=== PATIENT | male | born 1975 | race Caucasian/White ===

== ENCOUNTER 2022-09-10 06:34 | Outpatient (OUT) | payer OTHER, SELFPAY ==
[2022-09-10 07:23] LABS: Alanine Aminotransferase 43 U/L (16-63); Albumin Globulin Ratio 0.9; Albumin Level 3.7 g/dL (3.4-5.0); Alkaline Phosphatase 109 U/L (46-116); Anion Gap 11.5; Aspartate Amino Transferase 22 U/L (15-37); Bilirubin Total 0.4 mg/dL (0.2-1.0); Calcium 8.7 mg/dL (8.5-10.1); Carbon Dioxide 30.3 mmol/L (21.0-32.0); Chloride 102 mmol/L (98-107); Chol HDL Ratio 3.3; Cholesterol 179 mg/dL (<=200); Estimated GFR (African America >60 (>=60); Estimated GFR (Non-African Ame >60 (>=60); Globulin 3.9 g/dL; Glucose 111 mg/dL (74-106); HDL Cholesterol 54 mg/dL (40-60); Potassium 3.8 mmol/L (3.5-5.1); Sodium 140 mmol/L (136-145); Total Protein 7.6 g/dL (6.4-8.2); Triglycerides 151 mg/dL (<=150); VLDL CHOLESTEROL 30.2 mg/dL
[2022-09-10 07:28] LABS: Basophils Percent Auto 0.5 % (0.2-2.0); Eosinophils Absolute Auto 0.2 10^3/uL (0.0-0.7); Eosinophils Percent Auto 2.3 % (0.9-7.0); Hematocrit 42.2 % (42.0-54.0); Hemoglobin 14.3 g/dL (14.0-18.0); Immature Granulocytes Abs Auto 0.02 10^3/uL (0.00-0.03); Immature Granulocytes Pct Auto 0.3 % (0.0-0.5); Lymphocytes Absolute Auto 2.2 10^3/uL (1.2-3.8); Lymphocytes Percent Auto 27.4 % (20.5-60.0); Mean Corpuscular HGB Conc 33.9 g/dL (29.9-35.2); Mean Corpuscular Hemoglobin 30.4 pg (25.9-34.0); Mean Corpuscular Volume 89.8 fL (80.0-94.0); Mean Platelet Volume 9.9 fL (9.5-13.5); Monocytes Absolute Auto 0.9 10^3/uL (0.3-0.8); Monocytes Percent Auto 11.3 % (1.7-12.0); Neutrophils Absolute Auto 4.6 10^3/uL (1.4-6.5); Neutrophils Percent Auto 58.2 % (43.0-75.0); Platelet Count 432 10^3/uL (150-450); Red Cell Distribution Width 12.9 % (11.0-15.0); White Blood Count 7.9 10^3/uL (4.0-11.0)
== END 2022-09-10 06:35 ==
LOC: LAB 06:34
PROVIDERS: PCP Internal Medicine; Visit Provider Internal Medicine
DX: Z00.00 Encounter for general adult medical examination without abnormal findings (principal)
CPT/HCPCS: 36415; 80053; 80061; 85025

== ENCOUNTER 2023-03-26 21:20 | Emergency (ER) | payer OTHER, SELFPAY ==
--- NOTE | 2023-03-26 21:36 | ED_ITS ---
HPI - General Adult General Stated complaint: HIGH BLOOD PRESSURE Time Seen by Provider: 03/26/23 21:27 Discharge Plan Discharge Referrals: Jaren Price DO [Primary Care Provider] - 1 week
--- NOTE | 2023-03-26 21:36 | ED.GENADUL1 ---
Documented by User: Divine Del Angel 03/26/23 21:55 HPI - General Adult General Chief complaint: Recheck/Abnormal Lab/Rx Stated complaint: HIGH BLOOD PRESSURE Time Seen by Provider: 03/26/23 21:27 History of Present Illness HPI narrative: 47 year old male presents to the ED for HTN. He states his thought he felt warm, flushed tonight which prompted her to take his blood pressure. His BP at home was 191/100. He denies known hx HTN. States he did feel flushed today. Denies fever, DON, dizziness, vision changes. Denies CP, cough, SOB, back pain. Denies abd pain, N/V/D. Denies sinus congestion/drainage, sore throat. Denies pain at this time. Related Data Home Medications Medication Instructions Recorded Confirmed pantoprazole 40 mg tablet,delayed 40 mg PO DAILY 03/26/23 03/26/23 release tadalafil 10 mg tablet 10 mg PO .every other day 03/26/23 03/26/23 tamsulosin 0.4 mg capsule 0.4 mg PO BID 03/26/23 03/26/23 Allergies Allergy/AdvReac Type Severity Reaction Status Date / Time No Known Drug Allergies Allergy Verified 03/26/23 21:43 Review of Systems ROS Constitutional Denies: fever or fatigue Ears, nose, mouth, and throat Denies: throat pain, neck pain, ear pain, vertigo, nasal discharge or nasal congestion Cardiovascular Denies: chest pain, palpitations, swelling of feet/ankles or lightheadedness Respiratory Denies: shortness of breath or cough Gastrointestinal Denies: abdominal pain, nausea, vomiting or diarrhea Musculoskeletal Denies: back pain or neck pain Integumentary/Breast Denies: rash or itching Neurological Denies: headache, numbness in extremities, weakness in extremities, lack of coordination, dizziness or slurred speech PFSH PFSH Social History Smoking status: Never smoker Exam Constitutional Vital Signs, click to edit/add: Last Vital Signs Pulse 68 03/26/23 21:56 Resp 16 03/26/23 21:43 BP 164/101 H 03/26/23 21:43 Pulse Ox 97 03/26/23 21:43 O2 Del Method Room Air 03/26/23 21:43 Common normals: no apparent distress and oriented x3 General appearance: cooperative; not ill appearing HENMT Nose: external nose normal External ear: external ears normal Mouth: oral and palatal mucosa normal, lip normal and tongue normal Eye Common normals: conjunctivae normal and no scleral icterus Neck & C-Spine Common normals: supple and no JVD Chest Chest: symmetrical chest wall rise Respiratory Common normals: normal respiratory effort Effort & inspection: able to speak in complete sentences and symmetric chest movement Auscultation: clear to auscultation bilaterally Cardio Common normals: regular rate and regular rhythm Neuro Common normals: oriented x3 Sensorium/orientation: awake and alert Speech: speech normal Gait (neuro): normal gait Course Vital Signs Vital signs: Vital Signs Pulse Rate 68 03/26/23 21:43 Respiratory Rate 16 03/26/23 21:43 Blood Pressure 164/101 H 03/26/23 21:43 Pulse Oximetry 97 03/26/23 21:43 Oxygen Delivery Method Room Air 03/26/23 21:43 Pulse Rate 68 03/26/23 21:56 Respiratory Rate 16 03/26/23 21:43 Blood Pressure 164/101 H 03/26/23 21:43 Pulse Oximetry 97 03/26/23 21:43 Oxygen Delivery Method Room Air 03/26/23 21:43 Medical Decision Making MDM Narrative Medical decision making narrative: Laboratory and imaging studies were pending. Care was resumed to Dr. Hutchinson. See his dictation for further evaluation and treatment. Medical Records Medical records reviewed: Yes I reviewed the patient's medical records Lab Data Labs: Lab Results 03/26/23 Range/Units 21:56 WBC 7.7 (4.0-11.0) 10^3/uL RBC 4.39 L (4.70-6.10) 10^6/uL Hgb 13.0 L (14.0-18.0) g/dL Hct 40.4 L (42.0-54.0) % MCV 92.0 (80.0-94.0) fL MCH 29.6 (25.9-34.0) pg MCHC 32.2 (29.9-35.2) g/dL RDW 12.6 (11.0-15.0) % Plt Count 353 (150-450) 10^3/uL MPV 10.0 (9.5-13.5) fL Neut % (Auto) 48.8 (43.0-75.0) % Lymph % (Auto) 36.4 (20.5-60.0) % Armstrong % (Auto) 11.1 (1.7-12.0) % Eos % (Auto) 2.8 (0.9-7.0) % Baso % (Auto) 0.6 (0.2-2.0) % Neut # (Auto) 3.8 (1.4-6.5) 10^3/uL Lymph # (Auto) 2.8 (1.2-3.8) 10^3/uL Armstrong # (Auto) 0.9 H (0.3-0.8) 10^3/uL Eos # (Auto) 0.2 (0.0-0.7) 10^3/uL Baso # (Auto) 0.1 (0.0-0.1) 10^3/uL Abs Immat Gran (auto) 0.02 (0.00-0.03) 10^3/uL Imm/Tot Granulo (auto) 0.3 (0.0-0.5) % Sodium 140 (136-145) mmol/L Potassium 3.3 L (3.5-5.1) mmol/L Chloride 105 (98-107) mmol/L Carbon Dioxide 29.7 (21.0-32.0) mmol/L Anion Gap 8.6 BUN 26.0 H (7.0-18.0) mg/dL Creatinine 0.95 (0.70-1.30) mg/dL Est GFR ( Amer) >60 (>=60) Est GFR (Non-Af Amer) >60 (>=60) BUN/Creatinine Ratio 27.4 Glucose 121 H (74-106) mg/dL Calcium 8.9 (8.5-10.1) mg/dL Total Bilirubin 0.2 (0.2-1.0) mg/dL AST <5 L (15-37) U/L ALT 11 L (16-63) U/L Alkaline Phosphatase 116 (46-116) U/L Troponin I High Sens 6.0 (4.0-76.1) pg/mL Total Protein 6.9 (6.4-8.2) g/dL Albumin 3.4 (3.4-5.0) g/dL Globulin 3.5 g/dL Albumin/Globulin Ratio 1.0 ECG Data Attestation: ?I have reviewed the pertinent ECG results. (EKG was reviewed by the attending physician. It showed sinus rhythm at a rate of [address] segment changes. AL interval 162 ms. QTc 409 ms. ) Discharge Plan Discharge Chief Complaint: Recheck/Abnormal Lab/Rx Clinical Impression: Elevated blood pressure reading, Elevated BUN, Acute hypokalemia Patient Disposition: Home, Self-Care Time of Disposition Decision: 22:44 Prescriptions / Home Meds: No Action tadalafil 10 mg tablet 10 mg PO .every other day pantoprazole 40 mg tablet,delayed release (DR/EC) 40 mg PO DAILY tamsulosin 0.4 mg capsule 0.4 mg PO BID Instructions: Hypokalemia (ED), How to Take a Blood Pressure Reading (ED) Stand Alone Forms: Portal Instructions Referrals: Jaren Price DO [Primary Care Provider] - 1 week Documented by User: Trevin Hutchinson 03/26/23 22:45 HPI - General Adult General Chief complaint: Recheck/Abnormal Lab/Rx Stated complaint: HIGH BLOOD PRESSURE Time Seen by Provider: 03/26/23 21:27 History of Present Illness HPI narrative: 47 year old male presents to the ED for HTN. He states his thought he felt warm, flushed tonight which prompted her to take his blood pressure. His BP at home was 191/100. He denies known hx HTN. States he did feel flushed today. Denies fever, DON, dizziness, vision changes. Denies CP, cough, SOB, back pain. Denies abd pain, N/V/D. Denies sinus congestion/drainage, sore throat. Denies pain at this time. On questioning he told me that his urologist started him on tadalafil qOD for BPH. He started that about a month ago. Related Data Home Medications Medication Instructions Recorded Confirmed pantoprazole 40 mg tablet,delayed 40 mg PO DAILY 03/26/23 03/26/23 release tadalafil 10 mg tablet 10 mg PO .every other day 03/26/23 03/26/23 tamsulosin 0.4 mg capsule 0.4 mg PO BID 03/26/23 03/26/23 Allergies Allergy/AdvReac Type Severity Reaction Status Date / Time No Known Drug Allergies Allergy Verified 03/26/23 21:43 PFSH PFS Social History Smoking status: Never smoker Exam Constitutional Vital Signs, click to edit/add: Last Vital Signs Pulse 68 03/26/23 21:56 Resp 16 03/26/23 21:43 BP 164/101 H 03/26/23 21:43 Pulse Ox 97 03/26/23 21:43 O2 Del Method Room Air 03/26/23 21:43 Course Vital Signs Vital signs: Vital Signs Pulse Rate 68 03/26/23 21:43 Respiratory Rate 16 03/26/23 21:43 Blood Pressure 164/101 H 03/26/23 21:43 Pulse Oximetry 97 03/26/23 21:43 Oxygen Delivery Method Room Air 03/26/23 21:43 Pulse Rate 68 03/26/23 21:56 Respiratory Rate 16 03/26/23 21:43 Blood Pressure 164/101 H 03/26/23 21:43 Pulse Oximetry 97 03/26/23 21:43 Oxygen Delivery Method Room Air 03/26/23 21:43 Medical Decision Making MDM Narrative Medical decision making narrative: Laboratory and imaging studies were pending. Care was transferred to Dr. Hutchinson. See his dictation for further evaluation and treatment. Attending physician note - I saw and examined the patient. His labs revealed normal WBC, Hb 13, CMP notable for K 3.3, BUN elevated at 26 with normal Cr. LFTs normal. CXR normal. Results discussed with the patient. His BP had decreased to 130/83 without treatment while in the ED. He felt better as his BP improved and is now feeling back to normal. No dizziness or return of symptoms going from supine to sitting up. Patient was given a dose of K before discharge. he was instructed to see Dr Price for follow up. Since his BP normalized without treatment, I will not prescribe any anti-hypertensives at this time. Uncertain if the qOD tadalafil he recently started is playing any role in tonight's HTN episode. ED return if he worsens. Lab Data Lab results reviewed: Yes I reviewed the patient's lab results Labs: Lab Results 03/26/23 Range/Units 21:56 WBC 7.7 (4.0-11.0) 10^3/uL RBC 4.39 L (4.70-6.10) 10^6/uL Hgb 13.0 L (14.0-18.0) g/dL Hct 40.4 L (42.0-54.0) % MCV 92.0 (80.0-94.0) fL MCH 29.6 (25.9-34.0) pg MCHC 32.2 (29.9-35.2) g/dL RDW 12.6 (11.0-15.0) % Plt Count 353 (150-450) 10^3/uL MPV 10.0 (9.5-13.5) fL Neut % (Auto) 48.8 (43.0-75.0) % Lymph % (Auto) 36.4 (20.5-60.0) % Armstrong % (Auto) 11.1 (1.7-12.0) % Eos % (Auto) 2.8 (0.9-7.0) % Baso % (Auto) 0.6 (0.2-2.0) % Neut # (Auto) 3.8 (1.4-6.5) 10^3/uL Lymph # (Auto) 2.8 (1.2-3.8) 10^3/uL Armstrong # (Auto) 0.9 H (0.3-0.8) 10^3/uL Eos # (Auto) 0.2 (0.0-0.7) 10^3/uL Baso # (Auto) 0.1 (0.0-0.1) 10^3/uL Abs Immat Gran (auto) 0.02 (0.00-0.03) 10^3/uL Imm/Tot Granulo (auto) 0.3 (0.0-0.5) % Sodium 140 (136-145) mmol/L Potassium 3.3 L (3.5-5.1) mmol/L Chloride 105 (98-107) mmol/L Carbon Dioxide 29.7 (21.0-32.0) mmol/L Anion Gap 8.6 BUN 26.0 H (7.0-18.0) mg/dL Creatinine 0.95 (0.70-1.30) mg/dL Est GFR ( Amer) >60 (>=60) Est GFR (Non-Af Amer) >60 (>=60) BUN/Creatinine Ratio 27.4 Glucose 121 H (74-106) mg/dL Calcium 8.9 (8.5-10.1) mg/dL Total Bilirubin 0.2 (0.2-1.0) mg/dL AST <5 L (15-37) U/L ALT 11 L (16-63) U/L Alkaline Phosphatase 116 (46-116) U/L Troponin I High Sens 6.0 (4.0-76.1) pg/mL Total Protein 6.9 (6.4-8.2) g/dL Albumin 3.4 (3.4-5.0) g/dL Globulin 3.5 g/dL Albumin/Globulin Ratio 1.0 Imaging Data Chest x-ray: Radiologist's impression: Patient Name: VERONA MELISSA MRN: [facility]:[id number] date: 1975 Sex: M Assigned Patient Location: ED.MAIN Current Patient Location: ER Accession/Order Number: [id number] Exam Date: 03/26/2023 21:47 Report Date: 03/26/2023 22:08 At the request of: DIVINE DEL ANGEL Procedure: XR chest 1V EXAM: XR chest 1V HISTORY: HTN COMPARISON: Chest x-ray 01/31/2018, outside study TECHNIQUE: Single AP radiograph of the chest FINDINGS: No pneumothorax, pleural effusion or consolidation. Normal heart size. No acute osseous abnormality. IMPRESSION: No acute cardiopulmonary process. Electronically authenticated by: BASIL ORTIZ Date: 03/26/2023 22:08 ECG Data Interpretation: EKG interpretation: Emergency Department physician interpretation. Normal sinus rhythm at 67bpm. Normal axis, normal intervals and no ST segment elevation or depression. Normal EKG. Discharge Plan Discharge Chief Complaint: Recheck/Abnormal Lab/Rx Clinical Impression: Elevated blood pressure reading, Elevated BUN, Acute hypokalemia Patient Disposition: Home, Self-Care Time of Disposition Decision: 22:44 Prescriptions / Home Meds: No Action tadalafil 10 mg tablet 10 mg PO .every other day pantoprazole 40 mg tablet,delayed release (DR/EC) 40 mg PO DAILY tamsulosin 0.4 mg capsule 0.4 mg PO BID Instructions: Hypokalemia (ED), How to Take a Blood Pressure Reading (ED) Stand Alone Forms: Portal Instructions Referrals: Jaren Price DO [Primary Care Provider] - 1 week
--- NOTE | 2023-03-26 21:42 | XR_ITS ---
The [address] [address] Patient Name: VERONA MELISSA MRN: [id number] date: 1975 Sex: M Assigned Patient Location: ED.MAIN Current Patient Location: ER Accession/Order Number: [id number] Exam Date: 03/26/2023 21:47 Report Date: 03/26/2023 22:08 At the request of: DIVINE DEL ANGEL Procedure: XR chest 1V EXAM: XR chest 1V HISTORY: HTN COMPARISON: Chest x-ray 01/31/2018, outside study TECHNIQUE: Single AP radiograph of the chest FINDINGS: No pneumothorax, pleural effusion or consolidation. Normal heart size. No acute osseous abnormality. XR/XR chest 1V IMPRESSION: No acute cardiopulmonary process. Electronically authenticated by: BASIL ORTIZ Date: 03/26/2023 22:08
--- NOTE | 2023-03-26 21:42 | ECG_ITS ---
[facility] Test Date: 2023-03-26 Pat Name: VERONA MELISSA Department: Room: - Gender: Male [employer] Facility [employer] Clerk: : 1975 Requested By: Jaren Borges Order Number: [id number] Reading MD: JAREN BORGES Measurements Intervals [place] Rate: 67 P: 61 MN: 162 QRS: 51 QRSD: 100 T: 62 QT: 394 QTc: 409 Interpretive Statements 1100 Sinus rhythm 9110 normal ECG No previous ECG available for comparison Electronically Signed On 03-27-2023 7:11:33 EST by JAREN BORGES
[2023-03-26 21:43] VITALS: BP 164/101; PULSE 68; RESP 16; O2SAT 97; BMI 31.9
[2023-03-26 21:56] VITALS: PULSE 68
[2023-03-26 22:06] LABS: Basophils Absolute Auto 0.1 10^3/uL (0.0-0.1); Basophils Percent Auto 0.6 % (0.2-2.0); Eosinophils Absolute Auto 0.2 10^3/uL (0.0-0.7); Eosinophils Percent Auto 2.8 % (0.9-7.0); Hematocrit 40.4 % (42.0-54.0); Immature Granulocytes Abs Auto 0.02 10^3/uL (0.00-0.03); Immature Granulocytes Pct Auto 0.3 % (0.0-0.5); Lymphocytes Absolute Auto 2.8 10^3/uL (1.2-3.8); Lymphocytes Percent Auto 36.4 % (20.5-60.0); Mean Corpuscular HGB Conc 32.2 g/dL (29.9-35.2); Mean Corpuscular Hemoglobin 29.6 pg (25.9-34.0); Monocytes Absolute Auto 0.9 10^3/uL (0.3-0.8); Monocytes Percent Auto 11.1 % (1.7-12.0); Neutrophils Absolute Auto 3.8 10^3/uL (1.4-6.5); Neutrophils Percent Auto 48.8 % (43.0-75.0); Platelet Count 353 10^3/uL (150-450); Red Blood Count 4.39 10^6/uL (4.70-6.10); Red Cell Distribution Width 12.6 % (11.0-15.0); White Blood Count 7.7 10^3/uL (4.0-11.0)
[2023-03-26 22:20] LABS: Alanine Aminotransferase 11 U/L (16-63); Albumin Level 3.4 g/dL (3.4-5.0); Alkaline Phosphatase 116 U/L (46-116); Anion Gap 8.6; Aspartate Amino Transferase <5 U/L (15-37); BUN Creatinine Ratio 27.4; Bilirubin Total 0.2 mg/dL (0.2-1.0); Calcium 8.9 mg/dL (8.5-10.1); Carbon Dioxide 29.7 mmol/L (21.0-32.0); Chloride 105 mmol/L (98-107); Estimated GFR (African America >60 (>=60); Estimated GFR (Non-African Ame >60 (>=60); Globulin 3.5 g/dL; Glucose 121 mg/dL (74-106); Potassium 3.3 mmol/L (3.5-5.1); Sodium 140 mmol/L (136-145); Total Protein 6.9 g/dL (6.4-8.2)
[2023-03-26] MEDS: POTASSIUM CHLORIDE 10 MEQ ER TABLET 40 MEQ PO (22:49)
[2023-03-26 22:59] VITALS: BP 133/84; PULSE 65; RESP 16; TEMP 36.6; O2SAT 96
--- NOTE | 2023-04-22 09:19 | ED.GENADUL1 ---
HPI - General Adult General Chief complaint: Recheck/Abnormal Lab/Rx Stated complaint: HIGH BLOOD PRESSURE Time Seen by Provider: 03/26/23 21:27 Source: patient and family Mode of arrival: walk-in Limitations: no limitations History of Present Illness HPI narrative: Patient described feeling flushed all day and checked his BP - got reading of 190/100 - he does not take anything for HTN at home. No chest pain, shortness of breath or palpitations. No recent illness or injury. No dizziness, headache, change in vision. Related Data Home Medications Medication Instructions Recorded Confirmed pantoprazole 40 mg tablet,delayed 40 mg PO DAILY 03/26/23 03/26/23 release tadalafil 10 mg tablet 10 mg PO .every other day 03/26/23 03/26/23 tamsulosin 0.4 mg capsule 0.4 mg PO BID 03/26/23 03/26/23 Allergies Allergy/AdvReac Type Severity Reaction Status Date / Time No Known Drug Allergies Allergy Verified 03/26/23 21:43 PFSH PFSH Social History Smoking status: Never smoker Exam Narrative Exam Narrative: Nurses notes and vital signs reviewed and patient is not hypoxic. afebrile General: Well-appearing and in no apparent distress. Skin: Warm, dry, no pallor noted. Head: Normocephalic, atraumatic. Neck: Supple, non-tender. Eye: Pupils are equal, round and EOMI. No scleral icterus. Cardiovascular: Regular Rate and Rhythm without murmur, gallop or rub. Respiratory: No accessory muscle use or respiratory distress. Lungs are clear to auscultation, no wheezing, rales or rhonchi Musculoskeletal: normal ROM, no calf or popliteal tenderness, no lower extremity edema/swelling GI: Abdomen is soft, non-distended. Normal bowel sounds. No tenderness to palpation. No rebound, guarding, or rigidity noted. Neurological: A&O x4. No cranial nerve dysfunction observed. No truncal ataxia. Moves all extremities. Sensation intact. Psychiatric: Cooperative and interactive. Normal mood and affect. Constitutional Vital Signs, click to edit/add: Last Vital Signs Temp 97.9 F 03/26/23 22:59 Pulse 65 03/26/23 22:59 Resp 16 03/26/23 22:59 BP 133/84 03/26/23 22:59 Pulse Ox 96 03/26/23 22:59 O2 Del Method Room Air 03/26/23 22:59 Course Vital Signs Vital signs: Vital Signs Pulse Rate 68 03/26/23 21:43 Respiratory Rate 16 03/26/23 21:43 Blood Pressure 164/101 H 03/26/23 21:43 Pulse Oximetry 97 03/26/23 21:43 Oxygen Delivery Method Room Air 03/26/23 21:43 Temperature 97.9 F 03/26/23 22:59 Pulse Rate 65 03/26/23 22:59 Respiratory Rate 16 03/26/23 22:59 Blood Pressure 133/84 03/26/23 22:59 Pulse Oximetry 96 03/26/23 22:59 Oxygen Delivery Method Room Air 03/26/23 22:59 Medical Decision Making MDM Narrative Medical decision making narrative: Patient was placed on phototypesetting equipment monitor and EKG obtained. Blood drawn and sent for evaluation. Chest x-ray obtained. Patient had unremarkable CBC, normal EKG and negative chest x-ray. CMP was notable for mildly decreased potassium at 3.3. BUN is also elevated at 2 6. Other electrolytes, glucose and LFTs were negative. Negative troponin. Patient received oral potassium supplementation in the emergency department before discharge. Blood pressure normalized without any ED intervention. It is not clear why exactly he would have such elevated blood pressure readings at home. He does not currently take medications for high blood pressure and has not been diagnosed with hypertension. It was recommended that he follow-up with his primary care physician. Emergency department return if he worsens. Lab Data Lab results reviewed: Yes I reviewed the patient's lab results Labs: Lab Results 03/26/23 Range/Units 21:56 WBC 7.7 (4.0-11.0) 10^3/uL RBC 4.39 L (4.70-6.10) 10^6/uL Hgb 13.0 L (14.0-18.0) g/dL Hct 40.4 L (42.0-54.0) % MCV 92.0 (80.0-94.0) fL MCH 29.6 (25.9-34.0) pg MCHC 32.2 (29.9-35.2) g/dL RDW 12.6 (11.0-15.0) % Plt Count 353 (150-450) 10^3/uL MPV 10.0 (9.5-13.5) fL Neut % (Auto) 48.8 (43.0-75.0) % Lymph % (Auto) 36.4 (20.5-60.0) % Wilson % (Auto) 11.1 (1.7-12.0) % Eos % (Auto) 2.8 (0.9-7.0) % Baso % (Auto) 0.6 (0.2-2.0) % Neut # (Auto) 3.8 (1.4-6.5) 10^3/uL Lymph # (Auto) 2.8 (1.2-3.8) 10^3/uL Wilson # (Auto) 0.9 H (0.3-0.8) 10^3/uL Eos # (Auto) 0.2 (0.0-0.7) 10^3/uL Baso # (Auto) 0.1 (0.0-0.1) 10^3/uL Abs Immat Gran (auto) 0.02 (0.00-0.03) 10^3/uL Imm/Tot Granulo (auto) 0.3 (0.0-0.5) % Sodium 140 (136-145) mmol/L Potassium 3.3 L (3.5-5.1) mmol/L Chloride 105 (98-107) mmol/L Carbon Dioxide 29.7 (21.0-32.0) mmol/L Anion Gap 8.6 BUN 26.0 H (7.0-18.0) mg/dL Creatinine 0.95 (0.70-1.30) mg/dL Est GFR ( Amer) >60 (>=60) Est GFR (Non-Af Amer) >60 (>=60) BUN/Creatinine Ratio 27.4 Glucose 121 H (74-106) mg/dL Calcium 8.9 (8.5-10.1) mg/dL Total Bilirubin 0.2 (0.2-1.0) mg/dL AST <5 L (15-37) U/L ALT 11 L (16-63) U/L Alkaline Phosphatase 116 (46-116) U/L Troponin I High Sens 6.0 (4.0-76.1) pg/mL Total Protein 6.9 (6.4-8.2) g/dL Albumin 3.4 (3.4-5.0) g/dL Globulin 3.5 g/dL Albumin/Globulin Ratio 1.0 Discharge Plan Discharge Chief Complaint: Recheck/Abnormal Lab/Rx Clinical Impression: Elevated blood pressure reading, Elevated BUN, Acute hypokalemia Patient Disposition: Home, Self-Care Time of Disposition Decision: 22:44 Condition: Good Prescriptions / Home Meds: No Action tadalafil 10 mg tablet 10 mg PO .every other day pantoprazole 40 mg tablet,delayed release (DR/EC) 40 mg PO DAILY tamsulosin 0.4 mg capsule 0.4 mg PO BID Instructions: Hypokalemia (ED), How to Take a Blood Pressure Reading (ED) Stand Alone Forms: Portal Instructions Referrals: Jaren Price DO [Primary Care Provider] - 1 week Discharge Date/Time: 03/26/23 23:01
== END 2023-03-26 23:01 | disposition home or self-care (01) ==
PROVIDERS: Nurse Practitioner Family; Emergency Provider Emergency Medicine; PCP Internal Medicine
DX: E87.6 Hypokalemia (principal); R03.0 Elevated blood-pressure reading, without diagnosis of hypertension; R79.89 Other specified abnormal findings of blood chemistry
CPT/HCPCS: 36415; 71045; 80053; 84484; 85025; 93005; 99285

== ENCOUNTER 2023-10-02 09:38 | Outpatient (OUT) | payer OTHER, SELFPAY ==
--- OUTSIDE RECORDS SUMMARY | 2023-10-02 09:45 | XMS_ITS | CCD ---
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 (erectile dysfunction) Esophageal reflux Hypertension Hypogonadism male Low energy Nocturia Prostate cancer screening Prostatitis Right groin pain Varicocele Ventral incisional hernia Historical No qualifying data Procedure/Surgical History Repair of ventral hernia (01/21/2021), Appendectomy. Medications Cialis 10 mg Tab, 10 mg= 1 tab(s), Oral, Daily, 11 refills escitalopram 10 mg Tab finasteride 5 mg Tab, 5 mg= 1 tab(s), Oral, Daily, 3 refills Flomax 0.4 mg Cap, 0.4 mg= 1 cap(s), Oral, BID, 3 refills Pantoprazole [address] Tab, 40 mg= 1 tab(s), Oral, Daily Allergies No Known Allergies Social History Alcohol - Denies Alcohol Use, 01/02/2021 Substance Abuse - Denies Substance Abuse, 01/02/2021 Tobacco - Denies Tobacco Use, 01/11/2021 Never (less than 100 in lifetime) Tobacco Use:. Never Smokeless Tobacco Use:. Household tobacco concerns: No., 07/06/2023 Family History Diabetes mellitus type 1: Father. Immunizations Vaccine Date Status Comments influenza virus vaccine, inactivated - Not Given Patient Refuses SARS-CoV-2 (COVID-19) mRNA BNT-162b2 vax 07/21/2020 Recorded SARS-CoV-2 (COVID-19) mRNA BNT-162b2 vax 06/30/2020 Recorded Lab Results Ambulatory Point of Care Results Bilirubin Urine Dipstick: Negative (07/06/23 15:49:00) Blood Urine Dipstick: Trace-intact (07/06/23 15:49:00) Glucose Urine Dipstick: Negative (0 (more content not included)... Normal [facility] Comment on above: Result Comment: Elec tronically Signed By: Carlos SORTO MD\.br\Date and Time Signed: 07/06/23 16:43 EDT\.br\Electronically Co-Signed By: Irena Cisneros\.br\Date and Time Co-Signed: 07/06/23 16:41 EDT No Panel Informationon 05-14 Destruction method: cryotherapy [facility] Quick Strepon 05-09-2023 S. pyogenes Org specific cx Ql (Throat) Negative [facility] [employer] Other Quick Strep [employer] Other Alanine aminotransferase [En zymatic activity/volume] in Serum or PlasmaOrdered By: Carlos Padilla on 03-27-2023 ALT [Catalytic activity/Vol] 14 U/L 7-52 [facility] Albumin [Mass/volume] in Ser um or Plasma by Bromocresol green (BCG) dye binding methoOrdered By: Carlos Padilla on 03-27-2023 Albumin BCG dye [Mass/Vol] 4.4 g/dL 3.5-5.7 [facility] Alkaline phosphatase [Enzyma tic activity/volume] in Serum or PlasmaOrdered By: Carols Padilla on 03-27-2023 ALP [Catalytic activity/Vol] 98 U/L 34-104 [facility] Aspartate aminotransferase [ Enzymatic activity/volume] in Serum or PlasmaOrdered By: Carlos Padilla on 03-27-2023 AST [Catalytic activity/Vol] 17 U/L 13-39 [facility] Basophils Auto (Bld) [#/Vol] Ordered By: Carlos Padilla on 03-27-2023 Basophils (Bld) [#/Vol] 0.1 10*3/uL 0.0-0.2 [facility] Basophils/100 WBC Auto (Bld) Ordered By: Carlos Padilla on 03-27-2023 Basophils/100 WBC (Bld) 0.7 % . [facility] Bilirubin.total [Mass/volume ] in Serum or PlasmaOrdered By: Carlos Padilla on 03-27-2023 Bilirubin [Mass/Vol] 0.3 mg/dL 0.3-1.0 [facility] COVID CepheidOrdered By: Paola Padilla on 03-27-2023 SARS-CoV-2 (COVID-19) Ab IA Ql Negative Negative [facility] Comment on above: This is a duplicate Cepheid Xpert Xpress CoV-2/Flu/RSV Plus RNA by RT-PCR result to be used for statistical tracking purpose only. SARS-CoV-2 (COVID-19) RNA MEHRAN+probe Ql (Unsp spec) [facility] COVID-19 / Flu A/B / RSV PCR on 03-27-2023 SARS-CoV-2 (COVID-19) RNA MEHRAN+probe Ql (Unsp spec) COVID-19 Cepheid Result Negative for SARS-CoV-2 RNA by RT-PCR Flu A Cepheid Result Negative for Flu A RNA by RT-PCR Flu B Cepheid Result Negative for Flu B RNA by RT-PCR RSV Cepheid Result Negative for RSV RNA by RT-PCR COVID19 Blank Space Reference: Negative COVID19 Blank Space Cepheid Disclaimer The Cepheid Xpert Xpress CoV-2/Flu/RSV Plus has Cepheid Disclaimer not been FDA cleared or approved; this test has Cepheid Disclaimer been authorized by FDA under an EUA for use by Cepheid Disclaimer authorized laboratories; this test has been Cepheid Disclaimer authorized only for the simultaneous qualitative Cepheid Disclaimer detection and differentiation of nucleic acids from Cepheid Disclaimer SARS-CoV-2, influenza A, influenza B, and Cepheid Disclaimer respiratory syncytial virus (RSV), and not for any Cepheid Disclaimer other viruses or pathogens; and this test is only Cepheid Disclaimer authorized for the duration of the declaration that Cepheid Disclaimer circumstances exist justifying the authorization of Cepheid Disclaimer emergency use of in vitro diagnostic tests for Cepheid Disclaimer detection and/or diagnosis of COVID-19 under Cepheid Disclaimer Section 564(b)(1) of the Act, 21 U.S.C. 360bbb- Cepheid Disclaimer 3(b)(1), unless the authorization is terminated or Cepheid Disclaimer revoked sooner. PERFORMED BY: [place] [address] PATHOLOGIST [employer] TRIMMER NATY FORTE M.D. [facility] Comment on above: Performed By: #### C OVID19 FLU RSV, CEPHEID NEG #### [facility] [address] Calcium [Mass/volume] in Ser um or PlasmaOrdered By: Carlos Padilla on 03-27-2023 Calcium [Mass/Vol] 9.3 mg/dL 8.6-10.3 [facility] Carbon dioxide, total [Moles /volume] in Serum or PlasmaOrdered By: Carlos Padilla on 03-27-2023 CO2 [Moles/Vol] 28.7 mmol/L 21.0-31.0 [facility] Cepheid COVID PCR Negativeon 03-27-2023 SARS-CoV-2 (COVID-19) RNA MEHRAN+probe Ql (Unsp spec) Negative Normal Negative [facility] Comment on above: Result Comment: This is a duplicate Cepheid Xpert Xpress CoV-2/Flu/RSV Plus RNA by RT-PCR result to be used for statistical tracking purpose only. PERFORMED BY: [place] [address] PATHOLOGIST [employer] TRIMMER NATY FORTE M.D. Performed By: #### C OVID19 FLU RSV, CEPHEID NEG #### [place] [address] [place] Chloride [Moles/volume] in S manav or PlasmaOrdered By: Carlos Padilla on 03-27-2023 Chloride [Moles/Vol] 105 mmol/L 98-107 [facility] Complete Blood Count Auto Di ffon 03-27-2023 Basophils (Bld) [#/Vol] 0.1 10*3/uL Normal 0.0-0.2 [facility] Comment on above: Result Comment: PERF ORMED BY: [place] [address] PATHOLOGIST [employer] TRIMMER NATY FORTE M.D. Performed By: #### C MP, CBC #### [facility] [address] [place] [address] [place] Basophils/100 WBC (Bld) 0.7 % Normal . [facility] Comment on above: Performed By: #### C MP, CBC #### [facility] [address] [place] [address] [place] Eosinophils (Bld) [#/Vol] 0.2 10*3/uL Normal 0.0-0.45 [facility] Comment on above: Performed By: #### C MP, CBC #### [place] [address] [place] Eosinophils/100 WBC (Bld) 2.0 % Normal . [facility] Comment on above: Performed By: #### C MP, CBC #### [facility] [address] Erythrocyte distribution width (RBC) [Ratio] 13.2 % Normal 12.0-14.8 [facility] Comment on above: Performed By: #### C MP, CBC #### [facility] [address] Hematocrit (Bld) [Volume fraction] 41.9 % Normal 38.8-50.0 [facility] Comment on above: Performed By: #### C MP, CBC #### [facility] [address] Hemoglobin (Bld) [Mass/Vol] 14.2 g/dL Normal 13.0-17.0 [facility] Comment on above: Performed By: #### C MP, CBC #### [address] Lymphocytes (Bld) [#/Vol] 2.6 10*3/uL Normal 1.00-4.8 [facility] Comment on above: Performed By: #### C MP, CBC #### [address] Lymphocytes/100 WBC (Bld) 34.2 % Normal . [facility] Comment on above: Performed By: #### C MP, CBC #### [facility] [address] MCH (RBC) [Entitic mass] 30.5 pg Normal 27.5-35.2 [facility] Comment on above: Performed By: #### C MP, CBC #### [facility] [address] MCV (RBC) [Entitic vol] 89.8 fL Normal 83.5-101 [facility] Comment on above: Performed By: #### C MP, CBC #### [facility] [address] Mean Corpuscular HGB Conc 34.0 g/dL Normal 32.5-35.6 [facility] Comment on above: Performed By: #### C MP, CBC #### [facility] [address] [place] [address] [place] Monocytes (Bld) [#/Vol] 0.6 10*3/uL Normal 0.0-0.8 [facility] Comment on above: Performed By: #### C MP, CBC #### [facility] [address] [place] [address] [place] Monocytes/100 WBC (Bld) 17.61 % Normal 0.00-20.00 [facility] Comment on above: Performed By: #### C MP, CBC #### [facility] [address] [place] [address] [place] Monocytes/100 WBC (Bld) 8.4 % Normal . [facility] Comment on above: Performed By: #### C MP, CBC #### [facility] [address] Neutrophils (Bld) [#/Vol] 4.1 10*3/uL Normal 1.8-7.7 [facility] Comment on above: Performed By: #### C MP, CBC #### [facility] [address] Neutrophils/100 WBC (Bld) 54.7 % Normal . [facility] Comment on above: Performed By: #### C MP, CBC #### [place] [address] [place] NRBC% 0.1 /100{WBC} Normal 0-0.5 [facility] Comment on above: Performed By: #### C MP, CBC #### [facility] [address] [place] [address] [place] Platelet mean volume (Bld) [Entitic vol] 8.3 fL Normal 6.6-10.1 [facility] Comment on above: Performed By: #### C MP, CBC #### [facility] [address] [place] [address] [place] Platelets (Bld) [#/Vol] 367 10*3/uL Normal 150-450 [facility] Comment on above: Performed By: #### C MP, CBC #### [facility] [address] RBC (Bld) [#/Vol] 4.67 10*6/uL Normal 3.90-5.60 [facility] Comment on above: Performed By: #### C MP, CBC #### [facility] [address] WBC (Bld) [#/Vol] 7.6 10*3/uL Normal 4.1-10.5 [facility] Comment on above: Performed By: #### C MP, CBC #### [facility] [address] Comprehensive Metabolic Pane lavon 03-27-2023 Albumin [Mass/Vol] 4.4 g/dL Normal 3.5-5.7 [facility] Comment on above: Performed By: #### C MP, CBC #### [address] Albumin/Globulin [Mass ratio] 1.5 {ratio} Normal [facility] Comment on above: Performed By: #### C MP, CBC #### [facility] [address] [place] [address] ALP [Catalytic activity/Vol] 98 U/L Normal 34-104 [facility] Comment on above: Performed By: #### C MP, CBC #### [address] ALT [Catalytic activity/Vol] 14 U/L Normal 7-52 [facility] Comment on above: Performed By: #### C MP, CBC #### [address] Anion gap [Moles/Vol] 10.1 mmol/L Normal 6.0-15.0 [facility] Comment on above: Performed By: #### C MP, CBC #### [facility] [address] AST [Catalytic activity/Vol] 17 U/L Normal 13-39 [facility] Comment on above: Performed By: #### C MP, CBC #### [facility] [address] [place] [address] Bilirubin [Mass/Vol] 0.3 mg/dL Normal 0.3-1.0 [facility] Comment on above: Performed By: #### C MP, CBC #### [facility] [address] Calcium [Mass/Vol] 9.3 mg/dL Normal 8.6-10.3 [facility] Comment on above: Performed By: #### C MP, CBC #### [address] Chloride [Moles/Vol] 105 mmol/L Normal 98-107 [facility] Comment on above: Performed By: #### C MP, CBC #### [address] CO2 [Moles/Vol] 28.7 mmol/L Normal 21.0-31.0 [facility] Comment on above: Performed By: #### C MP, CBC #### [address] Creatinine [Mass/Vol] 0.94 mg/dL Normal 0.70-1.30 [facility] Comment on above: Performed By: #### C MP, CBC #### [address] Creatinine Clr Calc Pharmacy 123.73 [facility] Comment on above: Result Comment: PERF ORMED BY: [place] [address] PATHOLOGIST [employer]IM[employer] NATY FORTE M.D. Performed By: #### C MP, CBC #### [place] [address] [place] GFR/1.73 sq M.predicted MDRD (S/P/Bld) [Vol rate/Area] mL/min/{1.73_m2} [facility] Comment on above: Performed By: #### C MP, CBC #### [place] [address] [place] Globulin (S) [Mass/Vol] 2.9 g/dL Normal [facility] Comment on above: Performed By: #### C MP, CBC #### [facility] [address] [place] [address] [place] Glucose [Mass/Vol] 94 mg/dL Normal 70-100 [facility] Comment on above: Result Comment: [place] Glucose Reference Range is dependent on time and content of last meal. Glucose of more than 200 mg/dL in a nonstressed, ambulatory subject supports the diagnosis of Diabetes Mellitus. ADA recommended reference range Performed By: #### C MP, CBC #### [facility] [address] Potassium [Moles/Vol] 3.8 mmol/L Normal 3.5-5.1 [facility] Comment on above: Performed By: #### C MP, CBC #### [facility] [address] [place] [id number] [place] Protein [Mass/Vol] 7.3 g/dL Normal 6.4-8.9 [facility] Comment on above: Performed By: #### C MP, CBC #### [facility] [address] [place] [address] [place] Sodium [Moles/Vol] 140 mmol/L Normal 136-145 [facility] Comment on above: Performed By: #### C MP, CBC #### [facility] [address] [place] [id number] [place] Urea nitrogen [Mass/Vol] 16 mg/dL Normal 7-25 [facility] Comment on above: Performed By: #### C MP, CBC #### [facility] [address] [place] [address] [place] Creatinine [Mass/volume] in Serum or PlasmaOrdered By: Carlos Padilla on 03-27-2023 Creatinine [Mass/Vol] 0.94 mg/dL 0.70-1.30 [facility] ECG 12 lead ECGon 03-27-2023 ECG 12 lead ECG [facility] [address] [place] [address] Electrocardiograph Report Signed Patient: Josh Gil MR#: [id number] : 1975 Acct:[id number] Age/Sex: 47 / M ADM Date: 03/27/23 Loc: ER Room: Type: [facility] ER Attending Dr: Ordering Provider: Carlos Padilla DO Date of Service: 03/27/23 ECG/ECG 12 lead ECG: Recheck/Abnormal Lab/Rx Copies to: Test Reason : Blood Pressure : / mmHG Vent. Rate : 069 BPM Atrial Rate : 069 BPM P-R Int : 162 ms QRS Dur : 102 ms QT Int : 398 ms P-R-T Axes : 054 019 038 degrees QTc Int : 426 ms Normal sinus rhythm Inferior infarct , age undetermined Abnormal ECG No previous ECGs available Confirmed by CARLOS PADILLA DO ([id number]) on 03/27/2023 11:37:02 PM Referred By: Electronically Signed By:CARLOS PADILLA DO Transcribed By: MUS Signed By Carlos Padilla DO [id number] Normal [facility] Eosinophils Auto (Bld) [#/Vo l]Ordered By: Carlos Padilla on 03-27-2023 Eosinophils (Bld) [#/Vol] 0.2 10*3/uL 0.0-0.45 [facility] Eosinophils/100 WBC Auto (Bl d)Ordered By: Carlos Padilla on 03-27-2023 Eosinophils/100 WBC (Bld) 2.0 % . [facility] Erythrocyte distribution wid th Auto (RBC) [Ratio]Ordered By: Carlos Padilla on 03-27-2023 Erythrocyte distribution width (RBC) [Ratio] 13.2 % 12.0-14.8 [facility] Globulin Calc (S) [Mass/Vol] Ordered By: Carlos Padilla on 03-27-2023 Globulin (S) [Mass/Vol] 2.9 g/dL [facility] Glucose [Mass/volume] in Ser um or PlasmaOrdered By: Carlos Padilla on 03-27-2023 Glucose [Mass/Vol] 94 mg/dL 70-100 [facility] Comment on above: ADA recommended refe rence rangeRandom Glucose Reference Range is dependent on time and content of last meal. Glucose of more than 200 mg/dL in a nonstressed, ambulatory subject supports the diagnosis of Diabetes Mellitus. Hematocrit Auto (Bld) [Volum e fraction]Ordered By: Carlos Padilla on 03-27-2023 Hematocrit (Bld) [Volume fraction] 41.9 % 38.8-50.0 [facility] Hemoglobin [Mass/volume] in BloodOrdered By: Carlos Padilla on 03-27-2023 Hemoglobin (Bld) [Mass/Vol] 14.2 g/dL 13.0-17.0 [facility] Leukocytes [#/volume] correc belinda for nucleated erythrocytes in Blood by Automated counOrdered By: Carlos Padilla on 03-27-2023 WBC corrected for nucl RBC Auto (Bld) [#/Vol] 7.6 10*3/uL 4.1-10.5 [facility] Lymphocytes Auto (Bld) [#/Vo l]Ordered By: Carlos Padilla on 03-27-2023 Lymphocytes (Bld) [#/Vol] 2.6 10*3/uL 1.00-4.8 [facility] Lymphocytes/100 WBC Auto (Bl d)Ordered By: Carlos Padilla on 03-27-2023 Lymphocytes/100 WBC (Bld) 34.2 % . [facility] MCH Auto (RBC) [Entitic mass ]Ordered By: Carlos Padilla on 03-27-2023 MCH (RBC) [Entitic mass] 30.5 pg 27.5-35.2 [facility] MCHC Auto (RBC) [Mass/Vol]Or dered By: Carlos Padilla on 03-27-2023 MCHC (RBC) [Mass/Vol] 34.0 g/dL 32.5-35.6 [facility] MCV Auto (RBC) [Entitic vol] Ordered By: Carlos Padilla on 03-27-2023 MCV (RBC) [Entitic vol] 89.8 fL 83.5-101 [facility] Monocyte distribution width [Entitic volume] in Blood by AutomatedOrdered By: Carlos Padilla on 03-27-2023 Monocyte distribution width Auto (Bld) [Entitic vol] 17.61 % 0.00-20.00 [facility] Monocytes Auto (Bld) [#/Vol] Ordered By: Carlos Padilla on 03-27-2023 Monocytes (Bld) [#/Vol] 0.6 10*3/uL 0.0-0.8 [facility] Monocytes/100 WBC Auto (Bld) Ordered By: Carlos Padilla on 03-27-2023 Monocytes/100 WBC (Bld) 8.4 % . [facility] Neutrophils Auto (Bld) [#/Vo l]Ordered By: Carlos Padilla on 03-27-2023 Neutrophils (Bld) [#/Vol] 4.1 10*3/uL 1.8-7.7 [facility] Neutrophils/100 WBC Auto (Bl d)Ordered By: Carlos Padilla on 03-27-2023 Neutrophils/100 WBC (Bld) 54.7 % . [facility] No Panel InformationOrdered By: Carlos Padilla on 03-27-2023 Estimated GFR (CKD-EPI) > 60.0 mL/Min [facility] Creatinine Clearance (Chem 123.73 [facility] Nucleated erythrocytes [Pres ence] in Blood by Automated countOrdered By: Carlos Padilla on 03-27-2023 Nucleated RBC Auto Ql (Bld) 0.1 /100{WBC} 0-0.5 [facility] Platelet mean volume Auto (B ld) [Entitic vol]Ordered By: Carlos Padilla on 03-27-2023 Platelet mean volume (Bld) [Entitic vol] 8.3 fL 6.6-10.1 [facility] Platelets Auto (Bld) [#/Vol] Ordered By: Carlos Padilla on 03-27-2023 Platelets (Bld) [#/Vol] 367 10*3/uL 150-450 [facility] Potassium [Moles/volume] in Serum or PlasmaOrdered By: Carlos Padilla on 03-27-2023 Potassium [Moles/Vol] 3.8 mmol/L 3.5-5.1 [facility] Protein [Mass/volume] in Ser um or PlasmaOrdered By: Carlos Padilla on 03-27-2023 Protein [Mass/Vol] 7.3 g/dL 6.4-8.9 [facility] RBC Auto (Bld) [#/Vol]Ordere d By: Carlos Padilla on 03-27-2023 RBC (Bld) [#/Vol] 4.67 10*6/uL 3.90-5.60 [facility] Serum or plasma albumin/glob ulin mass ratioOrdered By: Carlos Padilla on 03-27-2023 Albumin/Globulin [Mass ratio] 1.5 {ratio} [facility] Serum or plasma anion gap de terminationOrdered By: Carlos Padilla on 03-27-2023 Anion gap [Moles/Vol] 10.1 mmol/L 6.0-15.0 [facility] Sodium [Moles/volume] in Ser um or PlasmaOrdered By: Carlos Padilla on 03-27-2023 Sodium [Moles/Vol] 140 mmol/L 136-145 [facility] Urea nitrogen [Mass/volume] in Serum or PlasmaOrdered By: Carlos Padilla on 03-27-2023 Urea nitrogen [Mass/Vol] 16 mg/dL 7-25 [facility] WBC Auto (Bld) [#/Vol]Ordere d By: Carlos Padilla on 03-27-2023 WBC (Bld) [#/Vol] 7.6 10*3/uL 4.1-10.5 [facility] Ambulatory Visit Summaryon 1 Ambulatory Visit Summary SHIN, JOSH Boby :1975 Visit Date:01/19/2023 Ambulatory Visit Instructions Your Diagnosis BPH with urinary obstruction Nocturia Low energy Prostate cancer screening ED (erectile dysfunction) Tests Performed Urnls Dip Stick Auto w/o Microscopy POC 19332 Your Care Team Attending Physician - LILIA CARDOZA, Carlos Villanueva Primary Care Physician - JAREN PRICE DO This Is Your Medications List finasteride (finasteride 5 mg Tab) tadalafil (Cialis 10 mg Tab) tamsulosin (Flomax 0.4 mg Cap) Contact prescribing physician if questions or concerns pantoprazole (Pantoprazole [address] Tab) Procedures Performed Repair of ventral hernia (01/21/2021), Appendectomy. Discharge Vitals Heart Rate (Peripheral) 80 Respiratory Rate 16 Blood Pressure 138/69 Height 183 cm Height 72 in Weight 107 kg Weight 235.4 lb BMI 31.95 What to do next Scheduled Follow-Up Appointments Thursday 8:45 AM EDT With: Carlos SORTO MD Where: [facility] Sydnee Normal [facility] Patient Educationon 01-20-20 Patient Education Urology Benign Prostatic Hyperplasia Benign prostatic hyperplasia (BPH) is an enlarged prostate gland that is caused by the normal aging process. The prostate may get bigger as a man gets older. The condition is not caused by cancer. The prostate is a walnut-sized gland that is involved in the production of semen. It is located in front of the rectum and below the bladder. The bladder stores urine. The urethra carries stored urine out of the body. An enlarged prostate can press on the urethra. This can make it harder to pass urine. The buildup of urine in the bladder can cause infection. Back pressure and infection may progress to bladder damage and kidney (renal) failure. What are the causes? This condition is part of the normal aging process. However, not all men develop problems from this condition. If the prostate enlarges away from the urethra, urine flow will not be blocked. If it enlarges toward the urethra and compresses it, there will be problems passing urine. What increases the risk? This condition is more likely to develop in men older than 50 years. What are the signs or symptoms? Symptoms of this condition include: ? Getting up often during the night to urinate. ? Needing to urinate frequently during the day. ? Difficulty starting urine flow. ? Decrease in size and strength of your urine stream. ? Leaking (dribbling) after urinating. ? Inability to pass urine. This needs immediate treatment. ? Inability to completely empty your bladder. ? Pain when you pass urine. This is more common if there is also an infection. ? Urinary tract infection (UTI). How is this diagnosed? This condition is diagnosed based on your medical history, a physical exam, and your symptoms. Tests will also be done, such as: ? A post-void bladder scan. This measures any amount of urine that may remain in your bladder after you finish urinating. ? A digital rectal exam. In a rectal exam, your health care provider checks your prostate by putting a lubricated, gloved finger into your rectum to feel the back of your prostate gland. This exam detects the size of your gland and any abnormal lumps or growths. ? An exam of your urine (urinalysis). ? A prostate specific antigen (PSA) screening. This is a blood test used to screen for prostate cancer. ? An ultrasound. This test uses sound waves to electronically produce a picture of your prostate gland. Your health care provider may refer you to a specialist in kidney and prostate diseases (urologist). How is this treated? Once symptoms begin, your health care provider will monitor your condition (active surveillance or watchful waiting). Treatment for this condition will depend on the severity of your condition. Treatment may include: ? Observation and yearly exams. This may be the only treatment needed if your condition and symptoms are mild. ? Medicines to relieve your symptoms, including: ? Medicines to shrink the prostate. ? Medicines to relax the muscle of the prostate. ? Surgery in severe cases. Surgery may include: ? Prostatectomy. In this procedure, the prostate tissue is removed completely through an open incision or with a laparoscope or robotics. ? Transurethral resection of the prostate (TURP). In this procedure, a tool is inserted through the opening at the tip of the penis (urethra). It is used to cut away tissue of the inner core of the prostate. The pieces are removed through the same opening of the penis. This removes the blockage. ? Transurethral incision (TUIP). In this procedure, small cuts are made in the prostate. This lessens the prostate's pressure on the urethra. ? Transurethral microwave thermotherapy (TUMT). This procedure uses microwaves to create heat. The heat destroys and removes a small amount of prostate tissue. ? Transurethral needle ablation (TUNA). This procedure uses radio frequencies to destroy and remove a small amount of prostate tissue. ? Interstitial laser coagulation (ILC). This procedure uses a laser to destroy and remove a small amount of prostate tissue. ? Transurethral electrovaporization (TUVP). This procedure uses electrodes to destroy and remove a small amount of prostate tissue. ? Prostatic urethral lift. This procedure inserts an implant to push the lobes of the prostate away from the urethra. Follow these instructions at home: ? Take [id number] and prescription medicines only as told by your health care provider. ? Monitor your symptoms for any changes. Contact your health care provider with any changes. ? Avoid drinking large amounts of liquid before going to bed or out in public. ? Avoid or reduce how much caffeine or alcohol you drink. ? Give yourself time when you urinate. ? Keep all follow-up visits. This is important. Contact a health care provider if: ? You have unexplained back pain. ? Your symptoms do not get better with treatment. ? You develop side effects from the medicine (more content not included)... Normal [facility] Urology Office/Clinic Noteon 01-19-2023 Urology Office/Clinic Note Chief Complaint 1yr HPI Staff 47 yo male here for 1 yr f/u with PSA. Previous Dx: BPH with obstruction, nocturia, low energy. Taking Tamsulosin 0.4mg bid and Finasteride 5mg qd. PSA 02/21/22- 0.26 Scrotal US 02/04/22 (ordered due to workers comp-ongoing hernia complications) Pt did call our office back in July c/o burning and pain while sitting. Was given Cipro therapy from PCP. Denies burning since then. Still getting up 2-3x/night. Energy has improved. Denies any concerns at this time. History of Present Illness Tests reviewed: reviewed UA and PSA. I have reviewed the previous health record information and history for this patient from . I have reviewed and verified the staff HPI to be accurate for this encounter. There have been no associated fever, chills, flank pain, or blood in the urine. Denies any urinary infections since last encounter. Review of Systems PHQ Score Initial Depression Screen Score: 0 ROS - Provider Constitutional: denies weight loss, denies hot flashes. Eyes: denies eye problems. Gastrointestinal: denies nausea, denies vomiting. Cardiovascular: denies chest pain or angina. Integumentary: no dryness Musculoskeletal: denies musculoskeletal symptoms. ENMT: denies otolaryngeal symptoms. Respiratory: no shortness of breath. Heme/Lymph: denies easy bleeding tendency, denies easy bruising tendency. Psychiatric: no confusion, no anxiety. Genitourinary: See HPI. Physical Exam Vitals & Measurements HR: 80(Peripheral) RR: 16 BP: 138/69 HT: 72 in HT: 183 cm WT: 107 kg WT: 235.4 lb BMI: 31.95 General Appearance: alert, no distress, well nourished, well developed male. Assessment/Plan 1. BPH with urinary obstruction (N40.1: Benign prostatic hyperplasia with lower urinary tract symptoms) Pt. continues taking Flomax 0.4mg bid and Finasteride 5mg qd. Scrotal US 02/04/22 (ordered due to workers comp-ongoing hernia complications) CT Pelvis w/o Con 04/26/22 - small fat-contained Rt inguinal hernia Pt did call our office back in July c/o burning, troubles urinating, and pain while sitting. Was given Cipro therapy from PCP. Denies burning since then. Pt states that he has been doing okay, not as good as he was last year. Pt states that his sxs are hesitation, feels like he is sitting on a ping-pong ball at times, and has a weak stream, only at different times, not consistently. Advised pt that this is caused by his prostate and the Finasteride may not be helping anymore. Discussed getting a cysto and a bladder function test done to determine if he will need a procedure done. Pt states that he would like to wait longer before having these tests or procedures done. Advised pt to continue to monitor his sxs and if they get persistently worse over time, he is to call our office and we will go from there. Discussed starting a med for urinary discomfort, if this becomes bothersome. Discussed starting Cialis 10mg QOD to help with BPH sxs. Pt states that he would like to start this. Follow up in 6 mos. All questions/concerns were discussed. Pt to call the office if he encounters any issues prior. Pt acknowledges understanding. -Will start Cialis 10mg QOD, Script will say QD. Discussed the medication side effects, and the patient will monitor closely for these, as well as for symptom improvement. If severe side effects occur, the medication should be stopped and the office notified. -Continue Tamsulosin and Finasteride as above. Pt is to call for refills. 2. Nocturia (R35.1: Nocturia) Ongoing 2-3x 3. Low energy (R53.83: Other fatigue) Current level drawn on 10/09/2019 - 419 ([phone]). Pt states that his energy has improved. 4. Prostate cancer screening (Z12.5: Encounter for screening for malignant neoplasm of prostate) PSA 02/21/22 - 0.26 Follow-up With When Contact Information Carlos SORTO MD, URL In 6 months [facility] [address], [place] [address]- Additional Instructions: Patient Education Benign Prostatic Hyperplasia I, Emily Walker , personally scribed for Dr. Sorto on 01/19/2023 16:43:22. . Documentation recorded by the scribe, Emily Walker, accurately reflects the services(s) I performed and decisions made by me. Problem List/Past Medical History Ongoing Bilateral groin pain BMI 32.0-32.9,adult BPH with urinary obstruction ED (erectile dysfunction) Esophageal reflux Hypertension Hypogonadism male Low energy Nocturia Prostate cancer screening Prostatitis Right groin pain Varicocele Ventral incisional hernia Historical No qualifying data Procedure/Surgical History Repair of ventral hernia (01/21/2021), Appendectomy. Medications finasteride 5 mg Tab, 5 mg= 1 tab(s), Oral, Daily, 3 refills Flomax 0.4 mg Cap, 0.4 mg= 1 cap(s), Oral, BID, 3 refills Pantoprazole [address] Tab, 40 mg= 1 tab(s), Oral, Daily Allergies No Known All (more content not included)... Normal [facility] Comment on above: Result Comment: Elec tronically Signed By: Carlos SORTO MD\.br\Date and Time Signed: 01/19/23 16:44 EDT\.br\Electronically Co-Signed By: Emily Walker\.br\Date and Time Co-Signed: 01/19/23 16:43 EDT Consultation Noteon 07-23-19 Consultation Note [id number]:[id number] Normal [facility] US SCROTUMon 02-04-2022 US SCROTUM EXAMINATION: US SCROTUM HISTORY: Strain of muscle of right groin region COMPARISON: No relevant comparison available. TECHNIQUE: High-resolution sonographic imaging of the scrotum and contents was performed. FINDINGS: The right testicle is normal in size, contour and homogeneous echotexture measuring 4.6 x 3.4 x 2.4 cm. Normal color and Doppler. The right epididymis is normal. Small right hydrocele. Small right varicocele. Small inguinal hernia containing fat. The left testicle is normal in size, contour and homogeneous echotexture measuring 4.1 x 3.8 x 2.3 cm. Normal color and Doppler. Area of calcification measuring 9 mm with acoustic shadowing likely extratesticular calcification The left epididymis is normal Small left hydrocele. No varicocele. IMPRESSION: Suspected small right inguinal hernia containing fat Small bilateral hydroceles Small right varicocele Electronically authenticated by: RALPH KHAN Date: 2022-02-04 13:36 Normal [facility] CBC AUTO DIFFon 06-27-2021 BASO # 0.0 103/ul Normal 0.0-0.1 [facility] Comment on above: Performed By: #### C BC #### [facility] [address] [place] [address] Dr. Maritza Lopez Basophils/100 WBC (Bld) 0.6 % Normal 0.2-2.0 [facility] Comment on above: Performed By: #### C BC #### [facility] [address] [place] [address] Dr. Maritza Lopez EO # 0.2 103/ul Normal 0.0-0.7 [facility] Comment on above: Performed By: #### C BC #### [facility] [address] [place] [address] Dr. Maritza Lopez Eosinophils/100 WBC (Bld) 2.9 % Normal 0.9-7.0 [facility] Comment on above: Performed By: #### C BC #### [facility] [address] [place] [address] Dr. Maritza Lopez Erythrocyte distribution width (RBC) [Ratio] 13.2 % Normal 11.0-15.0 [facility] Comment on above: Performed By: #### C BC #### [facility] [address] [place] [address] Dr. Maritza Lopez Hematocrit (Bld) [Volume fraction] 43.1 % Normal 42.0-54.0 [facility] Comment on above: Performed By: #### C BC #### [facility] [address] [place] [address] Dr. Maritza Lopez Hemoglobin (Bld) [Mass/Vol] 14.2 g/dL Normal 14.0-18.0 [facility] Comment on above: Performed By: #### C BC #### [facility] [address] [place] [address] Dr. Maritza Lopez IG # 0.01 10e3/ul Normal 0.00-0.03 [facility] Comment on above: Performed By: #### C BC #### [facility] [address] [place] [address] Dr. Maritza Lopez IG % 0.2 % Normal 0.0-0.5 [facility] Comment on above: Performed By: #### C BC #### [facility] [address] [place] [address] Dr. Maritza Lopez LYMPH # 2.0 103/ul Normal 1.2-3.8 [facility] Comment on above: Performed By: #### C BC #### [facility] [address] [place] [address] Dr. Maritza Lopez Lymphocytes/100 WBC (Bld) 30.3 % Normal 20.5-60.0 [facility] Comment on above: Performed By: #### C BC #### [facility] [address] [place] [address] Dr. Maritza Lopez MANUAL DIFF REQ NO Normal [facility] [place] [facility] Comment on above: Performed By: #### C BC #### [facility] [address] [place] [address] Dr. Maritza Lopez MCH (RBC) [Entitic mass] 30.0 pg Normal 25.9-34.0 [facility] Comment on above: Performed By: #### C BC #### [facility] [address] [place] [address] Dr. Maritza Lopez MCHC (RBC) [Mass/Vol] 32.9 g/dL Normal 29.9-35.2 [facility] Comment on above: Performed By: #### C BC #### [facility] [id number] Maritza Lopez MCV (RBC) [Entitic vol] 91.1 fL Normal 80.0-94.0 [facility] Comment on above: Performed By: #### C BC #### [facility] [address] [address] [address] Maritza Lopez MONO # 0.8 103/ul Normal 0.3-0.8 [facility] Comment on above: Performed By: #### C BC #### [facility] [address] [place] [address] Dr. Maritza Lopez Monocytes/100 WBC (Bld) 11.6 % Normal 1.7-12.0 [facility] Comment on above: Performed By: #### C BC #### [facility] [address] [place] [address] Dr. Maritza Lopez NEUT # 3.6 103/ul Normal 1.4-6.5 [facility] Comment on above: Performed By: #### C BC #### [facility] [address] [place] [address] Dr. Maritza Lopez Neutrophils/100 WBC (Bld) 54.4 % Normal 43.0-75.0 [facility] Comment on above: Performed By: #### C BC #### [facility] [address] [place] [address] Dr. Maritza Lopez Platelet mean volume (Bld) [Entitic vol] 10.2 fL Normal 9.5-13.5 [facility] Comment on above: Performed By: #### C BC #### [facility] [address] [place] [address] Dr. Maritza Lopez PLT 378 103/ul Normal 150-450 [facility] Comment on above: Performed By: #### C BC #### [facility] [address] [place] [address] Dr. Maritza Lopez RBC 4.73 106/ul Normal 4.70-6.10 [facility] Comment on above: Performed By: #### C BC #### [facility] [address] [place] [address] Dr. Maritza Lopez WBC 6.6 103/ul Normal 4.0-11.0 [facility] Comment on above: Performed By: #### C BC #### [facility] [address] [address] [address] Maritza Lopez LIPID PROFILEon 06-27-2021 CHOL-HDL RATIO NORM SEE BELOW Normal [facility] Comment on above: Result Comment: 3.3 - 4.4 LOW RISK 4.4 - 7.1 AVERAGE RISK 7.1 - 11.0 MODERATE RISK >11.0 HIGH RISK Performed By: #### L IPID, CMP #### [facility] [address] [address] [address] Maritza Lopez Cholesterol [Mass/Vol] 164 mg/dL Normal <=200 [facility] Comment on above: Performed By: #### L IPID, CMP #### [facility] [address] [address] [address] Maritza Lopez Cholesterol in HDL [Mass/Vol] 55 mg/dL Normal 40-60 [facility] Comment on above: Performed By: #### L IPID, CMP #### [facility] [address] [address] [address] Maritza Lopez Cholesterol in LDL [Mass/Vol] 90.8 mg/dL Normal [facility] Comment on above: Performed By: #### L IPID, CMP #### [facility] [address] [address] [address] Maritza Lopez Cholesterol.total/Chantale sterol in HDL [Mass ratio] 3.0 {ratio} Normal [facility] Comment on above: Performed By: #### L IPID, CMP #### [facility] [address] [address] [address] Maritza Lopez HDL NORMAL > or = 60 mg/dl - LO W CARDIOVASCULAR RISK <40 mg/dl - HIGH CARDIOVASCULAR RISK Normal [facility] Comment on above: Performed By: #### L IPID, CMP #### [facility] [address] [address] [address] Maritza Lopez LDL CALC NORMAL SEE BELOW Normal [facility] Comment on above: Result Comment: <100 mg/dl OPTIMAL 100 - 129 mg/dl NEAR OR ABOVE OPTIMAL 130 - 159 mg/dl BORDERLINE HIGH 160 - 189 mg/dl HIGH >190 mg/dl VERY HIGH Performed By: #### L IPID, CMP #### [facility] [address] [place] [address] Dr. Maritza Lopez Triglyceride [Mass/Vol] 91 mg/dL Normal <=150 [facility] Comment on above: Performed By: #### L IPID, CMP #### [facility] [address] [place] [address] Dr. Maritza Lopez VLDL CALC 18.2 mg/dL Normal [facility] Comment on above: Performed By: #### L IPID, CMP #### [facility] [address] [place] [address] Dr. Maritza Lopez PROF 14(COMP METB)on 022 Albumin [Mass/Vol] 3.8 g/dL Normal 3.4-5.0 [facility] Comment on above: Performed By: #### L IPID, CMP #### [facility] [address] [place] [address] Dr. Maritza Lopez Albumin/Globulin [Mass ratio] 1.2 {ratio} Normal [facility] Comment on above: Performed By: #### L IPID, CMP #### [facility] [address] [place] [address] Dr. Maritza Lopez ALP [Catalytic activity/Vol] 100 U/L Normal 46-116 [facility] Comment on above: Performed By: #### L IPID, CMP #### [facility] [address] [place] [address] Dr. Maritza Lopez ALT [Catalytic activity/Vol] 26 U/L Normal 16-63 [facility] Comment on above: Performed By: #### L IPID, CMP #### [facility] [address] [place] [address] Dr. Maritza Lopez Anion gap [Moles/Vol] 11.5 mmol/L Normal [facility] Comment on above: Performed By: #### L IPID, CMP #### [facility] [address] [address] [address] Maritza Lopez AST [Catalytic activity/Vol] 14 U/L Critically low 15-37 [facility] Comment on above: Performed By: #### L IPID, CMP #### [facility] [address] [address] [address] Maritza Lopez Bilirubin [Mass/Vol] 0.4 mg/dL Normal 0.2-1.3 [facility] Comment on above: Performed By: #### L IPID, CMP #### [facility] [address] [address] [address] Maritza Lopez Calcium [Mass/Vol] 8.4 mg/dL Critically low 8.5-10.1 [facility] Comment on above: Performed By: #### L IPID, CMP #### [facility] [address] [place] [address] Dr. Maritza Lopez Chloride [Moles/Vol] 104 mmol/L Normal 98-107 [facility] Comment on above: Performed By: #### L IPID, CMP #### [facility] [address] [address] [address] Maritza Lopez CO2 [Moles/Vol] 30.6 mmol/L Critically high 22.0-30.0 [facility] Comment on above: Performed By: #### L IPID, CMP #### [facility] [address] [place] [address] Dr. Maritza Lopez Creatinine [Mass/Vol] 1.07 mg/dL Normal 0.66-1.25 [facility] Comment on above: Performed By: #### L IPID, CMP #### [facility] [address] [place] [address] Dr. Maritza Lopez EGFR-AF NICARAGUAN >60 Normal >=60 [facility] Comment on above: Performed By: #### L IPID, CMP #### [facility] [address] [place] [address] Dr. Maritza Lopez EGFR-NON AF NICARAGUAN >60 Normal >=60 [facility] Comment on above: Performed By: #### L IPID, CMP #### [facility] [address] [address] [address] Maritza Lopez Globulin (S) [Mass/Vol] 3.3 g/dL Normal [facility] Comment on above: Performed By: #### L IPID, CMP #### [facility] [address] [address] [address] Maritza Lopez Glucose [Mass/Vol] 110 mg/dL Critically high 74-106 [facility] Comment on above: Performed By: #### L IPID, CMP #### [facility] [address] [place] [address] Dr. Maritza Lopez Potassium [Moles/Vol] 4.1 mmol/L Normal 3.4-5.0 [facility] Comment on above: Performed By: #### L IPID, CMP #### [facility] [address] [place] [address] Dr. Maritza Lopez Protein [Mass/Vol] 7.1 g/dL Normal 6.1-8.2 [facility] Comment on above: Performed By: #### L IPID, CMP #### [facility] [address] [place] [address] Dr. Maritza Lopez Sodium [Moles/Vol] 142 mmol/L Normal 137-145 [facility] Comment on above: Performed By: #### L IPID, CMP #### [facility] [address] [place] [address] Dr. Maritza Lopez Urea nitrogen [Mass/Vol] 17.0 mg/dL Normal 7.0-18.0 [facility] Comment on above: Performed By: #### L IPID, CMP #### [facility] [address] [place] [address] Dr. Maritza Lopez Urea nitrogen/Creatinine [Mass ratio] 15.9 mg/mg Normal [facility] Comment on above: Performed By: #### L IPID, CMP #### [facility] [address] [place] [address] Dr. Maritza Lopez Vital Signs Date Time Vital Sign Value Performing Clinician Facility 09-14-2023 15:44-0400 Body height 180.34 cm [facility] 09-14-2023 15:44-0400 Body mass index (BMI) [Ratio] 33.1 kg/m2 [facility] 09-14-2023 15:44-0400 Body weight 107.72 kg [facility] 09-14-2023 15:44-0400 Diastolic blood pressure 88 mm[Hg] [facility] 09-14-2023 15:44-0400 Heart rate 63 /min [facility] 09-14-2023 15:44-0400 Respiratory rate 12 /min [facility] 09-14-2023 15:44-0400 Systolic blood pressure 145 mm[Hg] [facility] 07-06-2023 15:44-0400 Blood Pressure Location Carlos SORTO [facility] 07-06-2023 15:44-0400 Body temperature 98.42 [degF] Carlos SORTO [facility] 07-06-2023 15:44-0400 Diastolic blood pressure 84 mm[Hg] Carlos SORTO [facility] 07-06-2023 15:44-0400 Heart rate 70 /min Carlos SORTO [facility] 07-06-2023 15:44-0400 Respiratory rate 16 /min Carlos SORTO [facility] 07-06-2023 15:44-0400 Systolic blood pressure 135 mm[Hg] Carlos SORTO [facility] 06-16-2023 15:56-0400 Body height 180.34 cm [facility] 06-16-2023 15:56-0400 Body mass index (BMI) [Ratio] 33 kg/m2 [facility] 06-16-2023 15:56-0400 Body weight 107.5 kg [facility] 06-16-2023 15:56-0400 Diastolic blood pressure 87 mm[Hg] [facility] 06-16-2023 15:56-0400 Heart rate 68 /min [facility] 06-16-2023 15:56-0400 Systolic blood pressure 135 mm[Hg] [facility] 05-22-2023 17:53-0500 Body height 181.61 cm DO Jaren Ball Work Phone: [facility] 05-22-2023 17:53-0500 Body mass index (BMI) [Ratio] 32.5 kg/m2 DO Jaren Ball Work Phone: [facility] 05-22-2023 17:53-0500 Body temperature 98.9 [degF] DO Jaren Ball Work Phone: [facility] 05-22-2023 17:53-0500 Body weight 107.5 kg DO Jaren Ball Work Phone: [facility] 05-22-2023 17:53-0500 Diastolic blood pressure 85 mm[Hg] DO Jaren Ball Work Phone: [facility] 05-22-2023 17:53-0500 Heart rate 75 /min DO Jaren Ball Work Phone: [facility] 05-22-2023 17:53-0500 Respiratory rate 18 /min DO Jaren Ball Work Phone: [facility] 05-22-2023 17:53-0500 SaO2% (BldA) [Mass fraction] 96 % DO Jaren Ball Work Phone: [facility] 05-22-2023 17:53-0500 Systolic blood pressure 135 mm[Hg] DO Jaren Ball Work Phone: [facility] 05-09-2023 13:45-0500 Body height 181.61 cm Nola Segura Other [facility] 05-09-2023 13:45-0500 Body mass index (BMI) [Ratio] 32.45 kg/m2 Nola Segura Other [employer] Other 05-09-2023 13:45-0500 Body temperature 98.4 [degF] Nola Segura Other [employer] Other 05-09-2023 13:45-0500 Body weight 107.05 kg Nola Segura Other [employer] Other 05-09-2023 13:45-0500 Body weight 107.04 kg DO Jaren Ball Work Phone: [facility] 05-09-2023 13:45-0500 Respiratory rate 16 /min Nola Segura Other [employer] Other 05-09-2023 13:45-0500 SaO2% (BldA) [Mass fraction] 97 % Nola Sgeura Other [facility] [employer] Other 04-15-2023 15:00-0500 Body height 181.61 cm Jaren Ball Other [facility] 04-15-2023 15:00-0500 Body mass index (BMI) [Ratio] 33.31 kg/m2 Jaren Ball Other [facility] [employer] Other 04-15-2023 15:00-0500 Body weight 109.86 kg Jaren Ball Other [facility] 04-15-2023 15:00-0500 Diastolic blood pressure 86 mm[Hg] Jaren Ball Other [facility] 04-15-2023 15:00-0500 Respiratory rate 12 /min Jaren Ball Other [facility] [employer] Other 04-15-2023 15:00-0500 Systolic blood pressure 135 mm[Hg] Jaren Ball Other [facility] 03-27-2023 18:42-0500 Diastolic blood pressure 87 mm[Hg] DO Jaren Ball Work Phone: [facility] 03-27-2023 18:42-0500 Heart rate 60 /min DO Jaren Ball Work Phone: [facility] 03-27-2023 18:42-0500 Respiratory rate 17 /min DO Jaren Ball Work Phone: [facility] 03-27-2023 18:42-0500 SaO2% (BldA) [Mass fraction] 98 % DO Jaren Ball Work Phone: [facility] 03-27-2023 18:42-0500 Systolic blood pressure 151 mm[Hg] DO Jaren Ball Work Phone: [facility] 03-27-2023 14:28-0500 Body height 182.88 cm DO Jaren Ball Work Phone: [facility] 03-27-2023 14:28-0500 Body temperature 98 [degF] DO Jaren Ball Work Phone: [facility] 03-27-2023 14:28-0500 Body weight 108.7 kg DO Jaren Ball Work Phone: [facility] 01-19-2023 15:55-0400 Blood Pressure Location Carlosyao SORTO [facility] 01-19-2023 15:55-0400 Diastolic blood pressure 69 mm[Hg] Carlos SORTO [facility] 01-19-2023 15:55-0400 Heart rate 80 /min Carlos SORTO [facility] 01-19-2023 15:55-0400 Respiratory rate 16 /min Carlos SORTO [facility] 01-19-2023 15:55-0400 Systolic blood pressure 138 mm[Hg] Carlos SORTO [facility] 09-08-2022 15:00-0400 Body height 181.61 cm Jaren Ball Other [employer] Other 09-08-2022 15:00-0400 Body mass index (BMI) [Ratio] 32.37 kg/m2 Jaren Ball Other [employer] Other 09-08-2022 15:00-0400 Body weight 106.78 kg Jaren Ball Other [employer] Other 09-08-2022 15:00-0400 Diastolic blood pressure 89 mm[Hg] Jaren Ball Other [employer] Other 09-08-2022 15:00-0400 Respiratory rate 12 /min Jaren Ball Other [employer] Other 09-08-2022 15:00-0400 Systolic blood pressure 139 mm[Hg] Jaren Ball Other [employer] Other 03-04-2022 15:05-0500 Blood Pressure Location Sadi TORREZ [facility] [place] 03-04-2022 15:05-0500 Diastolic blood pressure 94 mm[Hg] Sadi TORREZ [facility] [place] 03-04-2022 15:05-0500 Heart rate 82 /min Sadi TORREZ [facility] [place] 03-04-2022 15:05-0500 Respiratory rate 16 /min Sadi TORREZ [facility] [place] 03-04-2022 15:05-0500 Systolic blood pressure 144 mm[Hg] Sadi TORREZ [facility] [place] Encounters Encounter Date Encounter Type Care Provider Facility Start: 07-11-2024 ambulatory Carlos Kay LILIA Facili ty:[facility] [place] Start: 09-14-2023 End: 09-14-2023 ambulatory [facility] Work Phone: Start: 09-14-2023 End: 09-14-2023 Encounter for general adult medical examination without abnormal findings [facility] Start: 09-14-2023 End: 09-14-2023 Patient encounter procedure [facility] Work Phone: Start: 07-06-2023 End: 07-07-2023 ambulatory Carlos SORTO [facility] Start: 07-06-2023 End: 07-07-2023 ambulatory Carlos SORTO Facility:[facility] Start: 07-06-2023 End: 07-06-2023 Lab Drop off Carlos SORTO [facility] Start: 07-06-2023 End: 07-06-2023 Patient encounter procedure Carlos Kay LILIA [facility] Start: 06-16-2023 End: 06-16-2023 Patient encounter procedure [facility] Work Phone: Start: 05-22-2023 End: 05-22-2023 ambulatory DO Jaren Price Work Phone: [facility] Work Phone: Start: 05-22-2023 End: 05-22-2023 Patient encounter procedure DO Jaren Albert Work Phone: [facility] Work Phone: Start: 05-14-2023 End: 05-14-2023 ambulatory RADHA TERRELL Not Available Start: 05-14-2023 End: 05-14-2023 Patient encounter procedure Radha Terrell [employer]IST[employer] MANAGER-S[employer]CING [employer]OCI[employer] Work Phone: [facility] Comment on above: Common wart (Primary Dx); Other specified erythematous conditions Start: 05-14-2023 Bamboo flowsheet Radha Irene ter [employer] ASSISTANT MANAGER-SOURCING ASSOCIATE Work Phone: [facility] Start: 05-14-2023 Bamboo flowsheet Radha Irene ter RESTAURANT ASSISTANT MANAGER-SOURCING ASSOCIATE Work Phone: [facility] Start: 05-09-2023 End: 05-09-2023 ambulatory Nola Segura Other [employer] Other Start: 05-09-2023 Office outpatient vi sit 15 minutes Nola Segura [facility] Start: 05-09-2023 End: 05-09-2023 Patient encounter procedure DO Jaren Albert Work Phone: [facility]- Start: 04-15-2023 End: 04-15-2023 ambulatory Jaren Price Other [employer] Other Start: 04-15-2023 Office outpatient vi sit 15 minutes Jaren Price [facility] Start: 04-15-2023 End: 04-15-2023 Patient encounter procedure DO Jaren Albert Work Phone: [facility] Work Phone: Start: 04-13-2023 End: 04-13-2023 ambulatory RADHA TERRELL [employer] Other Start: 04-13-2023 Telephone encounter Jaren Price [facility] Start: 03-27-2023 End: 03-27-2023 Emergency department patient visit Jaren Price Facility:[facility] Start: 03-27-2023 End: 03-27-2023 Emergency department patient visit DO Jaren Price Work Phone: [facility] Work Phone: Start: 03-05-2023 End: 03-05-2023 ambulatory RADHA TERRELL Not Available Start: 01-19-2023 End: 01-20-2023 ambulatory Carlos SORTO Facility:[facility] Start: 01-19-2023 End: 01-19-2023 Patient encounter procedure Carlos SORTO [facility] [place] Start: 11-19-2022 End: 11-19-2022 ambulatory Jaren Price Other [employer] Other Start: 11-19-2022 Nursing evaluation o f patient and report Jaren Price [facility] Start: 10-06-2022 ambulatory Carlos SORTO Facili ty:[facility] [place] Start: 09-08-2022 End: 09-08-2022 ambulatory Jaren Price Other [employer] Other Start: 09-08-2022 Encounter for genera l adult medical examination without abnormal findings Jaren Price [facility] Start: 09-08-2022 Periodic preventive med est patient 40-64yrs Jaren Price [facility] Start: 07-08-2022 End: 07-08-2022 ambulatory Natalia Delgado Other [employer] Other Start: 07-08-2022 Patient encounter procedure Natalia Delgado [facility] Start: 03-04-2022 End: 03-04-2022 Patient encounter procedure Sadi TORREZ [facility] [place] Start: 02-21-2022 End: 02-22-[address] CARLOS SORTO Facility:[facility] Start: 02-04-2022 End: 02-05-2022 ambulatory MERNA KEENAN Facility:[facility] Start: 07-01-2021 Encounter for genera l adult medical examination without abnormal findings DR JAREN PRICE [facility] Start: 06-27-2021 End: 06-28-[address] JAREN PRICE Facility:[facility] Start: 06-27-2021 End: 06-28-2021 Encounter for general adult medical examination without abnormal findings DR JAREN PRICE Facility:[facility] Start: 06-24-2021 Adult health examination Paul Price Other [facility] [employer] Other Procedures Date Procedure Procedure Detail Performing Clinician Start: 05-14-2023 DESTRUCTION OF LESION N rock Terrell [employer] ASSISTANT MANAGER-SOURCING ASSOCIATE Work Phone: Start: 03-27-2023 SARS-CoV-2, Influenz a & RSV (PCR) DO Jaren Price Work Phone: Start: 02-21-[address] EDGAR SORTO Comment on above: Performed By: #### P SAD #### [facility] [address] [place] [address] Dr. Maritza Lopez Start: 01-21-2021 Repair of ventral hernia Sadi TORREZ Appendectomy Sadi TORREZ Depression screening Tremaine Price Other Plan of Treatment Date Care Activity Detail Author Start: 06-04-2023 End: 06-04-2023 Patient encounter procedure 06/04/2023 4:05 PM EST Office Visit [facility] [address] [place] [id number] Radha Terrell, [employer]AUR[employer] ASSISTANT MANAGER-SOURCING ASSOCIATE [address] [place] [address] [facility] Start: 05-14-2023 End: 05-14-2023 Patient encounter procedure 05/14/2023 4:05 PM EST Office Visit [facility] [address] [place] [address] Radha Terrell, RESTAURANT ASSISTANT MANAGER-SOURCING ASSOCIATE [address] [place] [address] [facility] Comment on above: Arrived Start: 12-05-2022 Influenza vaccination Influenz a Vaccine (#1) [facility] Start: 1975 Screening for malign ant neoplasm of colon [facility] Comprehensive metabo lic 2000 panel - Serum or Plasma [facility] Patient Education High Blood Pre ssure ED [facility] Work Phone: Patient referral [facility] Work Phone: [facility] Immunizations Immunization Date Immunization Notes Care Provider Fa marceloty 07-21-2020 SARS-CoV-2 (COVID-19 ) mRNA BNT-162b2 vax Sadi NILL [facility] [place] 06-30-2020 SARS-CoV-2 (COVID-19 ) mRNA BNT-162b2 vax Sadi NILL [facility] [place] NEGATED: Highlighted row has not occurred!03-04-2022 influenza virus vaccine, unspecified formulation Sadi ALANISL [facility] [place] Payers Date Payer Category Payer Managed Care HMO (unspecified) [employer]ET[employer] AETNA [id number] 2023-Present [address] [place] [address] O [id number] 2023 Private Health Insurance [id number] 2023 Self-pay 2022 Worker's Compensation [phone] 1975 Unknown [id number]. 593 1975 Unknown [id number] [id number]. 593 1975 Unknown [id number] [id number]. 593 1975 Unknown [id number] [id number]. 1259 1975 Unknown [id number] 2.16.840.1.335024.3.579.2. 1259 1975 Unknown [id number] 2.16.840.1.613318.3.579.2. 1259 1975 Unknown [id number] 2.16.840.1.246283.3.579.2. 727 1975 Unknown [id number] 2.16.840.1.010691.3.579.2. 727 1975 Unknown [id number] 2.16.840.1.104519.3.579.2. 727 1975 Unknown [id number] 2.16.840.1.143017.3.579.2. 727 1975 Unknown [id number] 2.16.840.1.192582.3.579.2. 727 1959 Unknown [id number] 1959 Unknown [id number] Private Health Insurance [id number] Unknown [id number]. 531 Social History Date Type Detail Facility Start: 03-04-2022 End: 03-27-2023 Tobacco smoking status Never smoked tobacco (finding) [facility] [place] Tobacco smoking status Never [facility] [place] Start: 04-13-2023 End: 05-18-2023 Sex Assigned At Male [facility] Start: 02-05-2023 Tobacco use and exposure Smokeless tobacco non-user [facility] Start: 04-13-2023 End: 05-18-2023 History of Social function [facility] Start: 1975 Sex Assigned At Not on file [facility] Start: 1975 Sex Assigned At Male F [facility] Medical Equipment Procedure Code Equipment Code Equipment Origin al Text Equipment Identifier Dates HERNIA REPAIR, R OBOT ASSISTED Sadi TORREZ MD 01/21/21 Non Biological Abdomen {[id number] {20}02 [facility] Start: 01-21-2021 Functional Status Date Assessment Result Facility 07-06-2023 Functional Status N/A [facility] 01-19-2023 Functional Status N/A [facility] 03-04-2022 Functional Status N/A [facility] [place] Clinical Notes 09-08-2022 to 07-06-2023 Radha Gabriel Xander, RESTAUR[employer] ASSISTANT MANAGER-SOURCING ASSOCIATE - 05/14/2023 4:05 PM EST Note Date & Type Note Facility 07-06-2023 Hospital Discharge instructions Patient Education 07/06/2023 16:32:19 Benign Prostatic Hyperplasia Benign Prostatic Hyperplasia Benign prostatic hyperplasia (BPH) is an enlarged prostate gland that is caused by the normal aging process. The prostate may get bigger as a man gets older. The condition is not caused by cancer. The prostate is a walnut-sized gland that is involved in the production of semen. It is located in front of the rectum and below the bladder. The bladder stores urine. The urethra carries stored urine out of the body. An enlarged prostate can press on the urethra. This can make it harder to pass urine. The buildup of urine in the bladder can cause infection. Back pressure and infection may progress to bladder damage and kidney (renal) failure. What are the causes? This condition is part of the normal aging process. However, not all men develop problems from this condition. If the prostate enlarges away from the urethra, urine flow will not be blocked. If it enlarges toward the urethra and compresses it, there will be problems passing urine. What increases the risk? This condition is more likely to develop in men older than 50 years. What are the signs or symptoms? Symptoms of this condition include: Getting up often during the night to urinate. Needing to urinate frequently during the day. Difficulty starting urine flow. Decrease in size and strength of your urine stream. Leaking (dribbling) after urinating. Inability to pass urine. This needs immediate treatment. Inability to completely empty your bladder. Pain when you pass urine. This is more common if there is also an infection. Urinary tract infection (UTI). How is this diagnosed? This condition is diagnosed based on your medical history, a physical exam, and your symptoms. Tests will also be done, such as: A post-void bladder scan. This measures any amount of urine that may remain in your bladder after you finish urinating. A digital rectal exam. In a rectal exam, your health care provider checks your prostate by putting a lubricated, gloved finger into your rectum to feel the back of your prostate gland. This exam detects the size of your gland and any abnormal lumps or growths. An exam of your urine (urinalysis). A prostate specific antigen (PSA) screening. This is a blood test used to screen for prostate cancer. An ultrasound. This test uses sound waves to electronically produce a picture of your prostate gland. Your health care provider may refer you to a specialist in kidney and prostate diseases (urologist). How is this treated? Once symptoms begin, your health care provider will monitor your condition (active surveillance or watchful waiting). Treatment for this condition will depend on the severity of your condition. Treatment may include: Observation and yearly exams. This may be the only treatment needed if your condition and symptoms are mild. Medicines to relieve your symptoms, including: ?Medicines to shrink the prostate. ?Medicines to relax the muscle of the prostate. Surgery in severe cases. Surgery may include: ?Prostatectomy. In this procedure, the prostate tissue is removed completely through an open incision or with a laparoscope or robotics. ?Transurethral resection of the prostate (TURP). In this procedure, a tool is inserted through the opening at the tip of the penis (urethra). It is used to cut away tissue of the inner core of the prostate. The pieces are removed through the same opening of the penis. This removes the blockage. ?Transurethral incision (TUIP). In this procedure, small cuts are made in the prostate. This lessens the prostate's pressure on the urethra. ?Transurethral microwave thermotherapy (TUMT). This procedure uses microwaves to create heat. The heat destroys and removes a small amount of prostate tissue. ?Transurethral needle ablation (TUNA). This procedure uses radio frequencies to destroy and remove a small amount of prostate tissue. ?Interstitial laser coagulation (ILC). This procedure uses a laser to destroy and remove a small amount of prostate tissue. ?Transurethral electrovaporization (TUVP). This procedure uses electrodes to destroy and remove a small amount of prostate tissue. ?Prostatic urethral lift. This procedure inserts an implant to push the lobes of the prostate away from the urethra. Follow these instructions at home: Take lthe-thj-ohhunsj and prescription medicines only as told by your health care provider. Monitor your symptoms for any changes. Contact your health care provider with any changes. Avoid drinking large amounts of liquid before going to bed or out in public. Avoid or reduce how much caffeine or alcohol you drink. Give yourself time when you urinate. Keep all follow-up visits. This is important. Contact a health care provider if: You have unexplained back pain. Your symptoms do not get better with treatment. You develop side effects from the medicine you are taking. Your urine becomes very dark or has a bad smell. Your lower abdomen becomes distended and you have trouble passing urine. Get help right away if: You have a fever or chills. You suddenly cannot urinate. You feel light-headed or very dizzy, or you faint. There are large amounts of blood or clots in your urine. Your urinary problems become hard to manage. You develop moderate to severe low back or flank pain. The flank is the side of your body between the ribs and the hip. These symptoms may be an emergency. Get help right away. Call 911. Do not wait to see if the symptoms will go away. Do not drive yourself to the hospital. Summary Benign prostatic hyperplasia (BPH) is an enlarged prostate that is caused by the normal aging process. It is not caused by cancer. An enlarged prostate can press on the urethra. This can make it hard to pass urine. This condition is more likely to develop in men older than 50 years. Get help right away if you suddenly cannot urinate. This information is not intended to replace advice given to you by your health care provider. Make sure you discuss any questions you have with your health care provider. Document Revised: 10/09/2021 Document Reviewed: 10/09/2021 [employer] Patient Education 2022 [employer]. Follow Up Care 01/19/2023 16:46:04 With:LILIA CARDOZA, Carlos Villanueva, URL Address: [facility] [address] , [place] [phone] When: Unknown Comments:1 yr (no labs) [facility] [place] 05-14-2023 History of Present illness Narrative Follow up Diagnosis: warts Location: right tip of hallux Last visit: 1 month ago Symptoms: rough Status: improving, blister noted Procedure performed: Liquid Nitrogen Number of treatments to date: 3 All pertinent medical history, medications, and allergies were reviewed. General Exam: alert , oriented to person, place, and time , normal affect, well appearing Unaccompanied A focused exam completed based on patient reported problems, see below: 1. Common wart Right Hallux Medial Paronychium of Toe Erythematous verrucous papule(s). Patient was counseled regarding warts. Treatment options were discussed including cryotherapy, you antigen injections, and topical Cantharidin. It was explained that it typically requires multiple treatments before the wart(s) completely resolve. Patient opted for LN2 treatment and then Fluowart nightly until wart resolves. Fluowart order faxed to [facility] Patient elected for cryotherapy today, see procedure note. Diagnosis: Verruca Indication: Inflamed Consent: Verbal consent was obtained and risks were discussed, including, but not limited to risks of scarring, darker or detective lieutenant pigmentary changes, recurrence, incomplete removal and infection. Method: Liquid nitrogen was used to treat the lesion(s) with two 5-10 second freeze-thaw cycles Number of lesions treated: 1 Post-procedure instructions: Instructions were given orally and in writing. The office will be contacted if the lesion fails to resolve despite treatment, or if a side effect develops such as abnormal crusting, scabbing, redness or tenderness. Follow up in 3-4 weeks, if clear okay to cancel. Destr of lesion - Right Hallux Medial Paronychium of Toe Destruction method: cryotherapy 2. Other specified erythematous conditions Next Visit: 4 weeks documented in this encounter [facility] 05-09-2023 Evaluation note Encounter Date Diagnosis Assessment Notes May, Bilateral impacted cerumen (ICD-10 - H61.23) Cerumen impaction home care material was printed May, Viral URI (ICD-10 - J06.9) Viral upper respiratory infection: adult home care material was printed Plenty fluids, get plenty of rest. Take Tylenol or Motrin for aches pains or fevers. Follow-up with your family physician if no improvement in 2 to 3 days May, Sore throat (ICD-10 - J02.9) [employer] Other 01-10-2024 Evaluation note* Encounter Date Diagnosis Assessment Notes Treatment Notes Treatment Clinical Notes Apr, Primary hypertension (ICD-10 - I10) This patient is instructed to consume a healthy, low-fat, low-salt diet. They are also encouraged to continue exercise to achieve/maintain a normal BMI. Patient is instructed on home BP measurements: - rest for 5 minutes w/o talking.- positioned w/ feet on floor and arm supported.- average best 2/3 readings w/ goal < 135/85. 10 Apr, 2023 LALITO (generalized anxiety disorder) (ICD-10 - F41.1) Healthy diet, exercise and relaxation. Discussed treatment options and recommended initiating SSRI therapy. He understands that it may take up to 4 weeks to reach maximum benefit. Apr, Insomnia due to other mental disorder (ICD-10 - F51.05) Discussed consistent nighttime routine. Avoid TV, eating, Phone, Exercise prior to bedtime. Use Zolpidem after an hour if still awake Apr, Mental disorder, not otherwise specified (ICD-10 - F99) [employer] Other 10-16-2023 Hospital Discharge instructions Patient Education 01/19/2023 16:28:57 Benign Prostatic Hyperplasia Benign Prostatic Hyperplasia Benign prostatic hyperplasia (BPH) is an enlarged prostate gland that is caused by the normal agingprocess. The prostate may get bigger as a man gets older. The condition is not caused by cancer. The prostate is a walnut-sized gland that is involved in the production of semen. It is located in front of the rectum and below the bladder. The bladder stores urine. The urethra carries stored urine ou t of the body. An enlarged prostate can press on the urethra. This can make it harder to pass urine. The buildup of urine in the bladder can cause infection. Back pressure and infection may progress to bladder damage and kidney (renal) failure. What are the causes? This condition is part of the normal aging process. However, not all men develop problems from thiscondition. If the prostate enlarges away from the urethra, urine flow will not be blocked. If it enlarges toward the urethra and compresses it, there will be problems passing urine. What increases the risk? This condition is more likely to develop in men older than 50 years. What are the signs or symptoms? Symptoms of this condition include: Getting up often during the night to urinate. Needing to urinate frequently during the day. Difficulty starting urine flow. Decrease in size and strength of your urine stream. Leaking (dribbling) after urinating. Inability to pass urine. This needs immediate treatment. Inability to completely empty your bladder. Pain when you pass urine. This is more common if there is also an infection. Urinary tract infection (UTI). How is this diagnosed? This condition is diagnosed based on your medical history, a physical exam, and your symptoms. Tests will also be done, such as: A post-void bladder scan. This measures any amount of urine that may remain in your bladder after you finish urinating. A digital rectal exam. In a rectal exam, your health care provider checks your prostate by putting a lubricated, gloved finger into your rectum to feel the back of your prostate gland. This exam detects the size of your gland and any abnormal lumps or growths. An exam of your urine (urinalysis). A prostate specific antigen (PSA) screening. This is a blood test used to screen for prostate cancer. An ultrasound. This test uses sound waves to electronically produce a picture of your prostate gland. Your health care provider may refer you to a specialist in kidney and prostate diseases (urologist). How is this treated? Once symptoms begin, your health care provider will monitor your condition (active surveillance or watchful waiting). Treatment for this condition will depend on the severity of your condition. Treatment may include: Observation and yearly exams. This may be the only treatment needed if your condition and symptoms are mild. Medicines to relieve your symptoms, including: ?Medicines to shrink the prostate. ?Medicines to relax the muscle of the prostate. Surgery in severe cases. Surgery may include: ?Prostatectomy. In this procedure, the prostate tissue is removed completely through an open incision or with a laparoscope or robotics. ?Transurethral resection of the prostate (TURP). In this procedure, a tool is inserted through the opening at the tip of the penis (urethra). It is used to cut away tissue of the inner core of the prostate. The pieces are removed through the same opening of the penis. This removes the blockage. ?Transurethral incision (TUIP). In this procedure, small cuts are made in the prostate. This lessens the prostate's pressure on the urethra. ?Transurethral microwave thermotherapy (TUMT). This procedure uses microwaves to create heat. The heat destroys and removes a small amount of prostate tissue. ?Transurethral needle ablation (TUNA). This procedure uses radio frequencies to destroy and remove a small amount of prostate tissue. ?Interstitial laser coagulation (ILC). This procedure uses a laser to destroy and remove a small amount of prostate tissue. ?Transurethral electrovaporization (TUVP). This procedure uses electrodes to destroy and remove a small amount of prostate tissue. ?Prostatic urethral lift. This procedure inserts an implant to push the lobes of the prostate away from the urethra. Follow these instructions at home: Take icev-[id number] and prescription medicines only as told by your health care provider. Monitor your symptoms for any changes. Contact your health care provider with any changes. Avoid drinking large amounts of liquid before going to bed or out in public. Avoid or reduce how much caffeine or alcohol you drink. Give yourself time when you urinate. Keep all follow-up visits. This is important. Contact a health care provider if: You have unexplained back pain. Your symptoms do not get better with treatment. You develop side effects from the medicine you are taking. Your urine becomes very dark or has a bad smell. Your lower abdomen becomes distended and you have trouble passing urine. Get help right away if: You have a fever or chills. You suddenly cannot urinate. You feel light-headed or very dizzy, or you faint. There are large amounts of blood or clots in your urine. Your urinary problems become hard to manage. You develop moderate to severe low back or flank pain. The flank is the side of your body between the ribs and the hip. These symptoms may be an emergency. Get help right away. Call 911. Do not wait to see if the symptoms will go away. Do not drive yourself to the hospital. Summary Benign prostatic hyperplasia (BPH) is an enlarged prostate that is caused by the normal aging process. It is not caused by cancer. An enlarged prostate can press on the urethra. This can make it hard to pass urine. This condition is more likely to develop in men older than 50 years. Get help right away if you suddenly cannot urinate. This information is not intended to replace advice given to you by your health care provider. Make sure you discuss any questions you have with your health care provider. Document Revised: 10/09/2021 Document Reviewed: 10/09/2021 [employer] Patient Education 2022 [employer]. Follow Up Care 01/13/2022 17:13:17 With:LILIA CARDOZA, Carlos Villanueva, URL Address: [facility] [address] , [place] [address]- When:Within 6 Month(s) [facility] 08-16-2023 Evaluation note* Encounter Date Diagnosis Assessment Notes Treatment Notes Treatment Clinical Notes Nov, Seasonal allergic rhinitis, unspecified trigger (ICD-10 - J30.2) [employer] Other 06-05-2023 Evaluation note* Encounter Date Diagnosis Assessment Notes Treatment Notes Treatment Clinical Notes Sep, Wellness examination (ICD-10 - Z00.00) Healthy diet and exercise. Reviewed age-appropriate preventive testing recommended. Sep, Gastroesophageal reflux disease with esophagitis without hemorrhage (ICD-10 - K21.00) Diet instructions: Smaller portions, avoid eating and laying flat, avoid eating or drinking prior to bedtime. Weight loss. Recommended weaning off PPI Sep, Nocturia (ICD-10 - R35.1) Sep, Benign prostatic hyperplasia with lower urinary tract symptoms (ICD-10 - N40.1) Yearly evaluation w/ w/ PSA Sep, Other obesity due to excess calories (ICD-10 - E66.09) This patient has been instructed on a low-fat, high-fiber diet. They are instructed to reduce calories, portion sizes and snacks. It is recommended that they exercise for 30 minutes, 3-5 times weekly. Sep, Body mass index [BMI ] 32.0-32.9, adult (ICD-10 - Z68.32) [employer] Other Evaluation + Plan note Future Appointments Appointment Date:01/19/2023 03:15:00 PM Scheduled Provider:Carlos SORTO MD Location:[facility] Appointment Type:URO Office Visit General Surgery [place] Evaluation + Plan note Future Appointments Appointment Date:07/13/2023 08:45:00 AM Scheduled Provider:Carlos SORTO MD Location:[facility] Appointment Type:URO Office Visit [facility] evaluation + Plan note Future Appointments Appointment Date:07/11/2024 03:15:00 PM Scheduled Provider:Carlos SORTO MD Location:[facility] Appointment Type:URO Office Visit [facility] evaluation + Plan note Future Appointments Appointment Date:07/11/2024 03:15:00 PM Scheduled Provider:Carlos SORTO MD Location:[facility] Appointment Type:URO Office Visit Diagnostic Tests Pending * PSA [facility], [facility] InformationNort[facility] [employer] Other Evaluation note* Diagnosis Common wart- Primary Other specified viral warts Other specified erythematous conditions documented in this encounter [facility] HealthcareEvaluation noteNo assessment information availableBucyrus [facility] Work Phone: Evaluation note* Diagnosis Onset Date Resolution Status LALITO (generalized anxiety disorder) acute Obesity acute Primary hypertension acute Benign prostatic hyperplasia with lower urinary tract symptoms acute LALITO (generalized anxiety disorder) acute Gastro-esophageal reflux dis ease with esophagitis, without bleeding acute Primary hypertension acute Wellness examination noneact [facility] Work Phone: [facility] Narrative - Reported* Type Description Date Medical History Acid reflux Medical History enlarged prostate Surgical History appendectomy [employer] Other [employer] general Narrative - Reported* Type Description Date Medical History Acid reflux Medical History enlarged prostate Surgical History appendectomy Surgical History COLONOSCOPY 2021 Surgical History EGD 2020 Surgical History HERNIORRHAPHY,INCISIONAL OR ADRY TRAL 2020 Hospitalization History SEE SURGICAL HX [employer] Other Hospital course Narrative No data available for this section General Surgery [place] [facility] Discharge instructions No data available for this section General Surgery [facility] note No data available for this section General Surgery [email or web address] Summary Purpose Family History Relationship Condition Age at Onset Recorded Date/T aditya father Diabetes mellitus Unknown Advance Directives Advance Directive Response Recorded Date/ Time Advance Directives No August 23 10:05am Advance Directive Response Recorded Date/ Time Advance Directives No August 23 11:05am Chief Complaint and Reason for Visit Chief Complaint elevated bp, light h eaded Blood Pressure Sore Throat, Cough, Congestion sinus congestion Chief Complaint check up Wellness Reason for Visit LALITO (generalized anx iety disorder) Obesity Primary hypertension Benign prostatic hyperplasia with lower urinary tract symptoms LALITO (generalized anxiety disorder) Gastro-esophageal reflux disease with esophagitis, without bleeding Primary hypertension Wellness examination Additional Source Comments (unrecognized sect ion and content) No Status Records FoundNo Status Records FoundNo Status Records FoundNo Status Records Found INFORMATION SOURCE (unrecogn ized section and content) DATE CREATED AUTHOR [facility]2022 [facility] DATE CREATED AUTHOR AUTHOR'S ORGANIZ ATION 04/10/2023 [facility] DATE CREATED AUTHOR AUTHOR'S ORGANIZ ATION 05/16/2023 [facility] DATE CREATED AUTHOR AUTHOR'S ORGANIZ ATION 07/09/2023 [facility] Patient Care team informatio n (unrecognized section and content) Team Status: Active Member Role Status Dates Jaren Price DO Primary Care Provider Active Team Status: Inactive Member Role Status Dates Jaren Price DO Primary Care Provider Active Start: March 27, 2023 End: March 27, 2023 Carlos Padilla DO Emergency Provider Active St art: March 27, 2023 End: March 27, 2023 Team Status: Inactive Member Role Status Dates Jaren Price DO Attending Provider Active Sta rt: April 15, 2023 End: April 15, 2023 Team Status: Inactive Member Role Status Dates MEHNAZ Davis Attending Provider Active S tart: May 09, 2023 End: May 09, 2023 Team Status: Inactive Member Role Status Dates Jaren Price DO Primary Care Provider Active Start: May 22, 2023 End: May 22, 2023 MEHNAZ Davis Attending Provider Active S tart: May 22, 2023 End: May 22, 2023 Team Status: Inactive Member Role Status Dates Jaren Price DO Primary Care Provide r, Attending Provider Active Start: June 16, 2023 End: June 16, 2023 Team Status: Inactive Member Role Status Dates Jaren Price DO Primary Care Provide r, Attending Provider Active Start: September 14, 2023 End: September 14, 2023 REASON FOR VISIT (unrecogniz ed section and content) Reason Comments Follow-up Goals (unrecognized section and content) Goals may be documented in a n alternate section FOR RECORDS PERTAINING TO PATIENTS WHO ARE OR HAVE BEEN ENROLLED IN A CHEMICAL DEPENDENCY/SUBSTANCEABUSE PROGRAM, SOME INFORMATION MAY BE OMITTED. This clinical summary was aggregated from multiple sources. Caution should be exercised in using it in the provision of clinical care. This summary normalizes information from multiple sources, and as a consequence, information in this document may materially change the coding, format and clinical context of patient data. In addition, data may be omitted in some cases. CLINICAL DECISIONS SHOULD BE BASED ON THE PRIMARY CLINICAL RECORDS. [facility] [employer] provides no warranty or guarantee of the accuracy or completeness of information in this document.
[2023-10-02 10:41] LABS: Basophils Absolute Auto 0.1 10^3/uL (0.0-0.1); Basophils Percent Auto 0.7 % (0.2-2.0); Eosinophils Absolute Auto 0.2 10^3/uL (0.0-0.7); Eosinophils Percent Auto 2.1 % (0.9-7.0); Hemoglobin 14.3 g/dL (14.0-18.0); Immature Granulocytes Abs Auto 0.02 10^3/uL (0.00-0.03); Immature Granulocytes Pct Auto 0.3 % (0.0-0.5); Lymphocytes Absolute Auto 2.1 10^3/uL (1.2-3.8); Lymphocytes Percent Auto 27.3 % (20.5-60.0); Mean Corpuscular HGB Conc 33.3 g/dL (29.9-35.2); Mean Corpuscular Hemoglobin 30.1 pg (25.9-34.0); Mean Corpuscular Volume 90.5 fL (80.0-94.0); Mean Platelet Volume 9.9 fL (9.5-13.5); Monocytes Absolute Auto 0.9 10^3/uL (0.3-0.8); Monocytes Percent Auto 11.4 % (1.7-12.0); Neutrophils Absolute Auto 4.5 10^3/uL (1.4-6.5); Neutrophils Percent Auto 58.2 % (43.0-75.0); Platelet Count 394 10^3/uL (150-450); Red Blood Count 4.75 10^6/uL (4.70-6.10); Red Cell Distribution Width 13.2 % (11.0-15.0); White Blood Count 7.7 10^3/uL (4.0-11.0)
[2023-10-02 11:20] LABS: Alanine Aminotransferase 24 U/L (16-63); Albumin Level 3.5 g/dL (3.4-5.0); Alkaline Phosphatase 103 U/L (46-116); Aspartate Amino Transferase 16 U/L (15-37); BUN Creatinine Ratio 21.2; Bilirubin Total 0.5 mg/dL (0.2-1.0); Calcium 8.3 mg/dL (8.5-10.1); Chloride 105 mmol/L (98-107); Chol HDL Ratio 3.1; Cholesterol 178 mg/dL (<=200); Estimated GFR (African America >60 (>=60); Estimated GFR (Non-African Ame >60 (>=60); Globulin 3.5 g/dL; Glucose 100 mg/dL (74-106); HDL Cholesterol 58 mg/dL (40-60); Sodium 141 mmol/L (136-145); Triglycerides 189 mg/dL (<=150); VLDL CHOLESTEROL 37.8 mg/dL
== END 2023-10-02 09:39 | disposition home or self-care (01) ==
LOC: LAB 09:41
PROVIDERS: PCP Internal Medicine; Visit Provider Internal Medicine
DX: Z00.00 Encounter for general adult medical examination without abnormal findings (principal)
CPT/HCPCS: 36415; 80053; 80061; 85025

== ENCOUNTER 2023-10-12 15:22 | Outpatient (OUT) | payer OTHER, SELFPAY ==
--- NOTE | 2023-10-12 | XR_ITS ---
The [address] [address] Patient Name: VERONA MELISSA MRN: [id number] date: 1975 Sex: M Assigned Patient Location: Current Patient Location: Accession/Order Number: [id number] Exam Date: 10/12/2023 15:22 Report Date: 10/13/2023 07:34 At the request of: KENNEDY BARRIOS Procedure: XR knee RT 4V PROCEDURE: XR knee RT 4V COMPARISON: None. HISTORY: RIGHT KNEE PAIN FINDINGS: BONES:No fracture, acute abnormality, or significant arthropathy. SOFT TISSUES:Negative. No visible soft tissue swelling. EFFUSION:None visible. OTHER: Negative. XR/XR knee RT 4V IMPRESSION: No acute disease. Electronically authenticated by: RALPH KHAN Date: 10/13/2023 07:34
--- OUTSIDE RECORDS SUMMARY | 2023-10-12 15:43 | XMS_ITS ---
Patient Summarization (C-CDA 2.1 CCD) Created on: October 12, 2023 Josh Gil : 1975 Sex: Male Author Organization Sample organization Care Team Providers Care Embalmer Apprentice Name Role Phone DR CARLOS SORTO Admitting Unavailable LILIA, DR MONACO Attending Unavailable ALBERT, DR VIZCAINO Primary Care Unavailable LILIA, DR MONACO Consulting Unavailable ALBERT, DR VIZCAINO Admitting Unavailable ALBERT, DR VIZCAINO Attending Unavailable ALBERT, DR VIZCAINO Primary Care Unavailable ALBERT, DR VIZCAINO Consulting Unavailable SHLOMO, MERNA Admitting Unavailable MERNA KEENAN Attending Unavailable ALBERT, DR VIZCAINO Primary Care Unavailable Donaldo, DR Robles Consulting Unavailable SHLOMO, MERNA Consulting Unavailable JAREN PRICE Primary Care Physician Natalia Delgado Unavailable Jaren Price Unavailable Jaren Price Primary Care Unavailable Carlos Padilla Attending Unavailable Carlos Padilla Admitting Unavailable ImeldaNola Unavailable RADHA TERRELL Attending Unavailable RADHA TERRELL Attending Unavailable RADHA TERRELL Attending Unavailable Unavailable Primary Care Provider UnavailDO Jaren Adamson Primary Care Provider [phone] DO Carlos Padilla Emergency Provider [phone] Carlos SORTO Attending Unavailable Carlos SORTO Attending Unavailable Carlos SORTO Attending Unavailable Carlos SORTO Admitting Unavailable Carlos SORTO Attending Unavailable Carlos SORTO Attending Unavailable Allergies Allergy Classification Reported Allergen(s) Allergy Type Date of Onset Reaction(s) Facility (1 source) patient allergy list reviewed by nurse or physicia Propensity to adverse reactions Comment:Done [employer] Other Encounters Encounter Date Encounter Type Care Provider Facility Start: 07-11-2024 ambulatory Carlos Edmondson ty:MICHELET Randhawa Start: 09-14-2023 End: 09-14-2023 ambulatory [facility] Work Phone: Start: 09-14-2023 End: 09-14-2023 Encounter for general adult medical examination without abnormal findings [facility] Start: 09-14-2023 End: 09-14-2023 Patient encounter procedure [facility] Work Phone: Start: 07-06-2023 End: 07-07-2023 ambulatory Carlos SORTO Facility:[facility] Start: 07-06-2023 End: 07-07-2023 ambulatory Carlos SORTO Facility:[facility] Start: 07-06-2023 End: 07-06-2023 Lab Drop off Carlos SORTO [facility] Start: 07-06-2023 End: 07-06-2023 Patient encounter procedure Carlos R LILIA [facility] Start: 06-16-2023 End: 06-16-2023 Patient encounter procedure [facility] Work Phone: Start: 05-22-2023 End: 05-22-2023 ambulatory DO Jaren Price Work Phone: [facility] Work Phone: Start: 05-22-2023 End: 05-22-2023 Patient encounter procedure DO Jaren Price Work Phone: [facility] Work Phone: Start: 05-14-2023 End: 05-14-2023 ambulatory RADHA A SIGRID Not Available Start: 05-14-2023 End: 05-14-2023 Patient encounter procedure Radha Terrell [employer] Work Phone: [facility] Comment on above: Common wart (Primary Dx); Other specified erythematous conditions Start: 05-14-2023 Bamboo flowsheet Radha Gabriel Fel mendoza [employer] Work Phone: [facility] Start: 05-14-2023 Bamboo flowsheet Radha donaldson [employer] Work Phone: [facility] Start: 05-09-2023 End: 05-09-2023 ambulatory Nola Segura Other [employer] Other Start: 05-09-2023 Office outpatient vi sit 15 minutes Nola Segura [facility] Start: 05-09-2023 End: 05-09-2023 Patient encounter procedure DO Jaren Price Work Phone: [facility]- Start: 04-15-2023 End: 04-15-2023 ambulatory Jaren Price Other [employer] Other Start: 04-15-2023 Office outpatient vi sit 15 minutes Jaren Price [facility] Start: 04-15-2023 End: 04-15-2023 Patient encounter procedure DO Jaren Price Work Phone: [facility] Work Phone: Start: 04-13-2023 End: 04-13-2023 ambulatory RADHA TERRELL [facility] [employer] Other Start: 04-13-2023 Telephone encounter Jaren Price [facility] Start: 03-27-2023 End: 03-27-2023 Emergency department patient visit Jaren Albert Facility:[facility] Start: 03-27-2023 End: 03-27-2023 Emergency department patient visit DO Jaren Price Work Phone: [facility] Work Phone: Start: 03-05-2023 End: 03-05-2023 ambulatory RADHA TERRELL Not Available Start: 01-19-2023 End: 01-20-2023 ambulatory Carlos SORTO Facility:[facility] Start: 01-19-2023 End: 01-19-2023 Patient encounter procedure Carlos SORTO [facility] Start: 11-19-2022 End: 11-19-2022 ambulatory Jaren Price Other [employer] Other Start: 11-19-2022 Nursing evaluation o f patient and report Jaren Albert [facility] Start: 10-06-2022 ambulatory Carlos SORTO Facili ty:[facility] Start: 09-08-2022 End: 09-08-2022 ambulatory Jaren Price Other [employer] Other Start: 09-08-2022 Encounter for genera l adult medical examination without abnormal findings Jaren Albert [facility] Start: 09-08-2022 Periodic preventive med est patient 40-64yrs Jaren Price [facility] Start: 07-08-2022 End: 07-08-2022 ambulatory Natalia Delgado Other [employer] Other Start: 07-08-2022 Patient encounter procedure Natalia Delgado [facility] Start: 03-04-2022 End: 03-04-2022 Patient encounter procedure Sadi TORREZ General Surgery Nill/Eliana Randhawa Start: 02-21-2022 End: 02-22-[address] CARLOS SORTO Facility:[facility] Start: 02-04-2022 End: 02-05-2022 ambulatory MERNA KEENAN Facility:[facility] Start: 07-01-2021 Encounter for genera l adult medical examination without abnormal findings DR JAREN PRICE [facility] Start: 06-27-2021 End: 06-28-[address] JAREN PRICE Facility:[facility] Start: 06-27-2021 End: 06-28-2021 Encounter for general adult medical examination without abnormal findings DR JAREN PRICE Facility:[facility] Start: 06-24-2021 Adult health examination Paul Price Other [employer] Other Medical Equipment Procedure Code Equipment Code Equipment Origin al Text Equipment Identifier Dates HERNIA REPAIR, R OBOT ASSISTED SHAN CARDOZA, Sadi Villanueva 01/21/21 Non Biological Abdomen {[id number] [id number]{[id number] {20}02 FDA Start: 01-21-2021 Immunizations Immunization Date Immunization Notes Care Provider Yue marin 07-21-2020 SARS-CoV-2 (COVID-19 ) mRNA BNT-162b2 vax Sadi ALANISL [facility] 06-30-2020 SARS-CoV-2 (COVID-19 ) mRNA BNT-162b2 vax Sadi hdtMEDIAL [facility] NEGATED: Highlighted row has not occurred!03-04-2022 influenza virus vaccine, unspecified formulation Sadi hdtMEDIAL [facility] Medications Current Medications Medication Drug Class(es) Dates Sig (Normalized) Sig (Original) escitalopram 10 mg oral tablet (9 sources) Serotonin Reuptake Inhibitor Start: 09-14-2023 Escitalopram Oxalate Active 10 MG PO .COMPLEX 10 September 14, 2023 4:11pm 10 mg orally [...] Di scontinued 10 MG PO Daily 90 June 12, 2023 6:53pm June 16, [...] day(s), # 90 tab(s), Refills(s) 3, Pharmacy: [facility] [id number], 183, cm, 07/06/23 15:59:00 EDT, Height/Length Dosing, [...] Active Start: 03-27-2021 take 1 capsule by mo uth twice daily Tamsulosin (Flomax) 0.4 mg capsule Active 0.4 MG PO Twice daily March 27, 2021 1:00am take 1 capsule by [facility] every twenty-four hours Tamsulosin HCl 0.4 MG 1 capsule Orally Once a day Active Tamsulosin HCl A ctive zolpidem tartrate 5 mg oral tablet (7 sources) gamma-Aminobutyric Acid-ergic Agonist Start: 06-15-2023 take 5 mg by mouth once daily at bedtime Zolpidem Active 5 MG PO Daily at bedtime June 15, 2023 12:00am Start: 04-15-2023 take 1 tablet by [facility] every twenty-four hours Zolpidem Tartrate 5 [...] Prednisone Discontinued 40 MG PO Daily 10 5 May 22, 2023 1:00am June 15, 2023 8:57am triamcinolone acetonide 40 mg/ml injectable suspension (4 sources) Corticosteroid Start: 11-19-2022 Kenalog-40 Nov, 60 mg Payers Date Payer Category Payer Managed Care HMO (unspecified) AETYANETH AETYANETH [id number] 2023-Present [address] [place] [address] HMO [id number] 2023 Private Health Insurance [id number] 2023 Self-pay 2022 Worker's Compensation [id number] 1975 Unknown [id number] [id number]. 593 1975 Unknown [id number] 2.16.840.1.487230.3.579.2. 593 1975 Unknown [id number] 2.16.840.1.980639.3.579.2. 593 1975 Unknown [id number] 2.16.840.1.716768.3.579.2. 1259 1975 Unknown [id number] 2.16.840.1.558943.3.579.2. 1259 1975 Unknown [id number] 2.16.840.1.474163.3.579.2. 1259 1975 Unknown [id number] 2.16.840.1.476901.3.579.2. 727 1975 Unknown [id number] 2.16.840.1.369952.3.579.2. 727 1975 Unknown [id number] 2.16.840.1.250110.3.579.2. 727 1975 Unknown [id number] 2.16.840.1.107935.3.579.2. 727 1975 Unknown [id number] 2.16.840.1.471406.3.579.2. 727 1959 Unknown [id number] 1959 Unknown [id number] Private Health Insurance [id number] [id number] Unknown [id number] 2.16.840.1.357926.3.579.2. 531 Plan of Treatment Date Care Activity Detail Author Start: 06-04-2023 End: 06-04-2023 Patient encounter procedure 06/04/2023 4:05 PM EST Office Visit [facility] [address] [place] [address] Radha Terrell, [employer]SE [employer]AFF [address] [place] [address] [facility] Start: 05-14-2023 End: 05-14-2023 Patient encounter procedure 05/14/2023 4:05 PM EST Office Visit [facility] [address] [place] [address] Radha Terrell, [employer]SE [employer]AFF [address] [place] [address] Arrived [facility] Comment on above: Arrived Start: 12-05-2022 Influenza vaccination Influenz a Vaccine (#1) [facility] Start: 1975 Screening for malign ant neoplasm of colon [facility] Comprehensive metabo lic 2000 panel - Serum or Plasma [facility] Patient Education High Blood Pre ssure ED [facility] Work Phone: Patient referral [facility] Work Phone: [facility] Problems Active Problems Problem Classification Problem Date [...] of scalp, subsequent encounter] Onset: 02-04-2018 Episodic Procedures Date Procedure Procedure Detail Performing Clinician Start: 05-14-2023 DESTRUCTION OF LESION N rock Terrell [employer]URSE STAFF Work Phone: Start: 03-27-2023 SARS-CoV-2, Influenz a & RSV (PCR) DO Jaren Price Work Phone: Start: 02-21-[address] EDGAR SORTO Comment on above: Performed By: #### P SAD #### [facility] [address] [place] [address] Dr. Maritza Lopez Start: 01-21-2021 Repair of ventral hernia Sadi TORREZ Appendectomy Sadi TORREZ Depression screening Tremaine Price Other Results Test Name Value Interpretation Reference Range Facility PSA Screen, Totalon 07-07-19 24 Prostate specific Ag [Mass/Vol] 0.2 ng/mL Normal 0.1-3.5 [facility] Comment on above: Result Comment: The concentration of PSA determined by different manufacturers can vary due to differences in assay methods and reagent specificity. Values obtained from different assay methods cannot be used interchangeably. The methodology used for this result was chemiluminescence using [employer] Access Hybritech PSA reagent. Performed By: #### 1 [id number] #### [facility] [address] [place] [id number] Ambulatory Visit Summaryon 0 07-06-2023 Ambulatory Visit [...] Carlos SORTO MD Where: [facility] Patient Educationon 07-06-19 24 Patient Education [...] Follow these instructions at home: ? Take [id number] and prescription medicines only as told by [...] (more content not included)... Normal [facility] Urology Office/Clinic Noteon 07-06-2023 Urology Office/Clinic [...] Villanueva, URL [facility] [address], [place] [address] [phone] Additional Instructions: 1 yr (no labs) Patient [...] (more content not included)... Normal [facility] Comment on above: Result Comment: Elec tronically Signed By: Carlos SORTO MD\.br\Date and Time Signed: 07/06/23 16:43 EDT\.br\Electronically Co-Signed By: Irena Cisneros\.br\Date and Time Co-Signed: 07/06/23 16:41 EDT No Panel Informationon 05-14 Destruction method: cryotherapy [facility] Quick Strepon 05-09-2023 S. pyogenes Org specific cx Ql (Throat) Negative [facility] [employer] Other Quick Strep [employer] [facility] [employer] Other Alanine aminotransferase [En zymatic activity/volume] in Serum or PlasmaOrdered By: Carlos Padilla on 03-27-2023 ALT [Catalytic activity/Vol] 14 U/L 7-52 [facility] Albumin [Mass/volume] in Ser um or Plasma by Bromocresol green (BCG) dye binding methoOrdered By: Carlos Padilla on 03-27-2023 Albumin BCG dye [Mass/Vol] 4.4 g/dL 3.5-5.7 [facility] Alkaline phosphatase [Enzyma tic activity/volume] in Serum or PlasmaOrdered By: Carlos Padilla on 03-27-2023 ALP [Catalytic activity/Vol] 98 U/L 34-104 [facility] Aspartate aminotransferase [ Enzymatic activity/volume] in Serum or PlasmaOrdered By: Carlos Padilla on 03-27-2023 AST [Catalytic activity/Vol] 17 U/L 13-39 [facility] Basophils Auto (Bld) [#/Vol] Ordered By: Carlos Padilla on 03-27-2023 Basophils (Bld) [#/Vol] 0.1 10*3/uL 0.0-0.2 [facility] Basophils/100 WBC Auto (Bld) Ordered By: Carlos Padilla on 03-27-2023 Basophils/100 WBC (Bld) 0.7 % . [facility] Bilirubin.total [Mass/volume ] in Serum or PlasmaOrdered By: Carlos Padilla on 03-27-2023 Bilirubin [Mass/Vol] 0.3 mg/dL 0.3-1.0 [facility] COVID CepheidOrdered By: Paola Padilla on 03-27-2023 SARS-CoV-2 (COVID-19) Ab IA Ql Negative Negative [facility] Comment on above: This is a duplicate Cepheid Xpert Xpress CoV-2/Flu/RSV Plus RNA by RT-PCR result to be used for statistical tracking purpose only. SARS-CoV-2 (COVID-19) RNA MEHRAN+probe Ql (Unsp spec) [facility] COVID-19 / Flu A/B / RSV [...] or Cepheid Disclaimer revoked sooner. PERFORMED BY: [place] [address] PATHOLOGIST GASOLINE TRACTOR OPERATOR NATY FORTE M.D. Normal [facility] Comment on above: Performed By: #### C OVID19 FLU RSV, CEPHEID NEG #### [facility] [address] [place] [address] [place] Calcium [Mass/volume] in Ser um or PlasmaOrdered By: Carlos Padilla on 03-27-2023 Calcium [Mass/Vol] 9.3 mg/dL 8.6-10.3 [facility] Carbon dioxide, total [Moles /volume] in Serum or PlasmaOrdered By: Carlos Padilla on 03-27-2023 CO2 [Moles/Vol] 28.7 mmol/L 21.0-31.0 [facility] Cepheid COVID PCR Negativeon 03-27-2023 SARS-CoV-2 (COVID-19) RNA MEHRAN+probe Ql (Unsp spec) Negative Normal Negative [facility] Comment on above: Result Comment: This is a duplicate Cepheid Xpert Xpress CoV-2/Flu/RSV Plus RNA by RT-PCR result to be used for statistical tracking purpose only. PERFORMED BY: [address] [address] PATHOLOGIST GASOLINE TRACTOR OPERATOR NATY FORTE M.D. Performed By: #### C OVID19 FLU RSV, CEPHEID NEG #### [facility] [address] [place] [address] [place] Chloride [Moles/volume] in S manav or PlasmaOrdered By: Carlos Padilla on 12-22-2023 Chloride [Moles/Vol] 105 mmol/L 98-107 [facility] Complete Blood Count Auto Di ffon 03-27-2023 Basophils (Bld) [#/Vol] 0.1 10*3/uL Normal 0.0-0.2 [facility] Comment on above: Result Comment: PERF ORMED BY: [place] [address] PATHOLOGIST GASOLINE TRACTOR OPERATOR NATY FORTE M.D. Performed By: #### C MP, CBC #### [address] Basophils/100 WBC (Bld) 0.7 % Normal . [facility] Comment on above: Performed By: #### C MP, CBC #### [address] Eosinophils (Bld) [#/Vol] 0.2 10*3/uL Normal 0.0-0.45 [facility] Comment on above: Performed By: #### C MP, CBC #### [place] [address] [place] Eosinophils/100 WBC (Bld) 2.0 % Normal . [facility] Comment on above: Performed By: #### C MP, CBC #### [address] Erythrocyte distribution width (RBC) [Ratio] 13.2 % Normal 12.0-14.8 [facility] Comment on above: Performed By: #### C MP, CBC #### [address] Hematocrit (Bld) [Volume fraction] 41.9 % Normal 38.8-50.0 [facility] Comment on above: Performed By: #### C MP, CBC #### [address] Hemoglobin (Bld) [Mass/Vol] 14.2 g/dL Normal 13.0-17.0 [facility] Comment on above: Performed By: #### C MP, CBC #### [place] [address] [place] Lymphocytes (Bld) [#/Vol] 2.6 10*3/uL Normal 1.00-4.8 [facility] Comment on above: Performed By: #### C MP, CBC #### [address] Lymphocytes/100 WBC (Bld) 34.2 % Normal . [facility] Comment on above: Performed By: #### C MP, CBC #### [address] MCH (RBC) [Entitic mass] 30.5 pg Normal 27.5-35.2 [facility] Comment on above: Performed By: #### C MP, CBC #### [address] MCV (RBC) [Entitic vol] 89.8 fL Normal 83.5-101 [facility] Comment on above: Performed By: #### C MP, CBC #### [address] Mean Corpuscular HGB Conc 34.0 g/dL Normal 32.5-35.6 [facility] Comment on above: Performed By: #### C MP, CBC #### [address] Monocytes (Bld) [#/Vol] 0.6 10*3/uL Normal 0.0-0.8 [facility] Comment on above: Performed By: #### C MP, CBC #### [address] Monocytes/100 WBC (Bld) 17.61 % Normal 0.00-20.00 [facility] Comment on above: Performed By: #### C MP, CBC #### [address] Monocytes/100 WBC (Bld) 8.4 % Normal . [facility] Comment on above: Performed By: #### C MP, CBC #### [address] Neutrophils (Bld) [#/Vol] 4.1 10*3/uL Normal 1.8-7.7 [facility] Comment on above: Performed By: #### C MP, CBC #### [address] Neutrophils/100 WBC (Bld) 54.7 % Normal . [facility] Comment on above: Performed By: #### C MP, CBC #### [address] NRBC% 0.1 /100{WBC} Normal 0-0.5 [facility] Comment on above: Performed By: #### C MP, CBC #### [address] Platelet mean volume (Bld) [Entitic vol] 8.3 fL Normal 6.6-10.1 [facility] Comment on above: Performed By: #### C MP, CBC #### [address] Platelets (Bld) [#/Vol] 367 10*3/uL Normal 150-450 [facility] Comment on above: Performed By: #### C MP, CBC #### [address] RBC (Bld) [#/Vol] 4.67 10*6/uL Normal 3.90-5.60 [facility] Comment on above: Performed By: #### C MP, CBC #### [address] WBC (Bld) [#/Vol] 7.6 10*3/uL Normal 4.1-10.5 [facility] Comment on above: Performed By: #### C MP, CBC #### [address] Comprehensive Metabolic Pane lavon 03-27-2023 Albumin [Mass/Vol] 4.4 g/dL Normal 3.5-5.7 [facility] Comment on above: Performed By: #### C MP, CBC #### [address] Albumin/Globulin [Mass ratio] 1.5 {ratio} Normal [facility] Comment on above: Performed By: #### C MP, CBC #### [address] ALP [Catalytic activity/Vol] 98 U/L Normal 34-104 [facility] Comment on above: Performed By: #### C MP, CBC #### [address] ALT [Catalytic activity/Vol] 14 U/L Normal 7-52 [facility] Comment on above: Performed By: #### C MP, CBC #### [address] Anion gap [Moles/Vol] 10.1 mmol/L Normal 6.0-15.0 [facility] Comment on above: Performed By: #### C MP, CBC #### [address] AST [Catalytic activity/Vol] 17 U/L Normal 13-39 [facility] Comment on above: Performed By: #### C MP, CBC #### [address] Bilirubin [Mass/Vol] 0.3 mg/dL Normal 0.3-1.0 [facility] Comment on above: Performed By: #### C MP, CBC #### [address] Calcium [Mass/Vol] 9.3 mg/dL Normal 8.6-10.3 [facility] Comment on above: Performed By: #### C MP, CBC #### [place] [address] [place] Chloride [Moles/Vol] 105 mmol/L Normal 98-107 [facility] Comment on above: Performed By: #### C MP, CBC #### [address] CO2 [Moles/Vol] 28.7 mmol/L Normal 21.0-31.0 [facility] Comment on above: Performed By: #### C MP, CBC #### [facility] [address] Creatinine [Mass/Vol] 0.94 mg/dL Normal 0.70-1.30 [facility] Comment on above: Performed By: #### C MP, CBC #### [address] Creatinine Clr Calc Pharmacy 123.73 Normal [facility] Comment on above: Result Comment: PERF ORMED BY: [place] [address] PATHOLOGIST GASOLINE TRACTOR OPERATOR NATY FORTE M.D. Performed By: #### C MP, CBC #### [address] GFR/1.73 sq M.predicted MDRD (S/P/Bld) [Vol rate/Area] mL/min/{1.73_m2} [facility] Comment on above: Performed By: #### C MP, CBC #### [address] Globulin (S) [Mass/Vol] 2.9 g/dL Normal [facility] Comment on above: Performed By: #### C MP, CBC #### [address] Glucose [Mass/Vol] 94 mg/dL Normal 70-100 [facility] Comment on above: Result Comment: [place] Glucose Reference Range is dependent on time and content of last meal. Glucose of more than 200 mg/dL in a nonstressed, ambulatory subject supports the diagnosis of Diabetes Mellitus. ADA recommended reference range Performed By: #### C MP, CBC #### [address] Potassium [Moles/Vol] 3.8 mmol/L Normal 3.5-5.1 [facility] Comment on above: Performed By: #### C MP, CBC #### [address] Protein [Mass/Vol] 7.3 g/dL Normal 6.4-8.9 [facility] Comment on above: Performed By: #### C MP, CBC #### [facility] [address] Sodium [Moles/Vol] 140 mmol/L Normal 136-145 [facility] Comment on above: Performed By: #### C MP, CBC #### [facility] [address] Urea nitrogen [Mass/Vol] 16 mg/dL Normal 7-25 [facility] Comment on above: Performed By: #### C MP, CBC #### [facility] [address] [place] [address] Creatinine [Mass/volume] in Serum or PlasmaOrdered By: Carlos Padilla on 03-27-2023 Creatinine [Mass/Vol] 0.94 mg/dL 0.70-1.30 [facility] ECG 12 lead ECGon 03-27-2023 ECG 12 lead ECG [facility] [place] [address] [place] [address] Electrocardiograph Report Signed Patient: Josh Gil MR#: [id number] : 1975 Acct:[id number] Age/Sex: 47 / M ADM Date: 03/27/23 Loc: ER Room: Type: [facility] ER Attending Dr: Ordering Provider: Carlos Padilla [...] DO Transcribed By: MUS Signed By Carlos Padilla, 2337 Normal [facility] Eosinophils Auto (Bld) [#/Vo l]Ordered By: Carlos Padilla on 03-27-2023 Eosinophils (Bld) [#/Vol] 0.2 10*3/uL 0.0-0.45 [facility] Eosinophils/100 WBC Auto (Bl d)Ordered By: Carlos Padilla on 03-27-2023 Eosinophils/100 WBC (Bld) 2.0 % . [facility] Erythrocyte distribution wid th Auto (RBC) [Ratio]Ordered By: Carlos Padilla on 03-27-2023 Erythrocyte distribution width (RBC) [Ratio] 13.2 % 12.0-14.8 [facility] Globulin Calc (S) [Mass/Vol] Ordered By: Carlos Padilla on 03-27-2023 Globulin (S) [Mass/Vol] 2.9 g/dL [facility] Glucose [Mass/volume] in Ser um or PlasmaOrdered By: Carlos Padilla on 03-27-2023 Glucose [Mass/Vol] 94 mg/dL 70-100 [facility] Comment on above: ADA recommended refe rence rangeRandom Glucose Reference Range is dependent on time and content of last meal. Glucose of more than 200 mg/dL in a nonstressed, ambulatory subject supports the diagnosis of Diabetes Mellitus. Hematocrit Auto (Bld) [Volum e fraction]Ordered By: Carlos Padilla on 03-27-2023 Hematocrit (Bld) [Volume fraction] 41.9 % 38.8-50.0 [facility] Hemoglobin [Mass/volume] in BloodOrdered By: Carlos Padilla on 03-27-2023 Hemoglobin (Bld) [Mass/Vol] 14.2 g/dL 13.0-17.0 [facility] Leukocytes [#/volume] correc belinda for nucleated erythrocytes in Blood by Automated counOrdered By: Carlos Padilla on 03-27-2023 WBC corrected for nucl RBC Auto (Bld) [#/Vol] 7.6 10*3/uL 4.1-10.5 [facility] Lymphocytes Auto (Bld) [#/Vo l]Ordered By: Carlos Padilla on 03-27-2023 Lymphocytes (Bld) [#/Vol] 2.6 10*3/uL 1.00-4.8 [facility] Lymphocytes/100 WBC Auto (Bl d)Ordered By: Carlos Padilla on 03-27-2023 Lymphocytes/100 WBC (Bld) 34.2 % . [facility] MCH Auto (RBC) [Entitic mass ]Ordered By: Carlos Padilla on 03-27-2023 MCH (RBC) [Entitic mass] 30.5 pg 27.5-35.2 [facility] MCHC Auto (RBC) [Mass/Vol]Or dered By: Carlos Padilla on 03-27-2023 MCHC (RBC) [Mass/Vol] 34.0 g/dL 32.5-35.6 [facility] MCV Auto (RBC) [Entitic vol] Ordered By: Carlos Padilla on 03-27-2023 MCV (RBC) [Entitic vol] 89.8 fL 83.5-101 [facility] Monocyte distribution width [Entitic volume] in Blood by AutomatedOrdered By: Carlos Padilla on 03-27-2023 Monocyte distribution width Auto (Bld) [Entitic vol] 17.61 % 0.00-20.00 [facility] Monocytes Auto (Bld) [#/Vol] Ordered By: Carlos Padilla on 03-27-2023 Monocytes (Bld) [#/Vol] 0.6 10*3/uL 0.0-0.8 [facility] Monocytes/100 WBC Auto (Bld) Ordered By: Carlos Padilla on 03-27-2023 Monocytes/100 WBC (Bld) 8.4 % . [facility] Neutrophils Auto (Bld) [#/Vo l]Ordered By: Carlos Padilla on 03-27-2023 Neutrophils (Bld) [#/Vol] 4.1 10*3/uL 1.8-7.7 [facility] Neutrophils/100 WBC Auto (Bl d)Ordered By: Carlos Padilla on 03-27-2023 Neutrophils/100 WBC (Bld) 54.7 % . [facility] No Panel InformationOrdered By: Carlos Padilla on 12-22-2023 Estimated GFR (CKD-EPI) > 60.0 mL/Min [facility] Creatinine Clearance (Chem 123.73 [facility] Nucleated erythrocytes [Pres ence] in Blood by Automated countOrdered By: Carlos Padilla on 03-27-2023 Nucleated RBC Auto Ql (Bld) 0.1 /100{WBC} 0-0.5 [facility] Platelet mean volume Auto (B ld) [Entitic vol]Ordered By: Carlos Padilla on 03-27-2023 Platelet mean volume (Bld) [Entitic vol] 8.3 fL 6.6-10.1 [facility] Platelets Auto (Bld) [#/Vol] Ordered By: Carlos Padilla on 03-27-2023 Platelets (Bld) [#/Vol] 367 10*3/uL 150-450 [facility] Potassium [Moles/volume] in Serum or PlasmaOrdered By: Carlos Padilla on 03-27-2023 Potassium [Moles/Vol] 3.8 mmol/L 3.5-5.1 [facility] Protein [Mass/volume] in Ser um or PlasmaOrdered By: Carlos Padilla on 03-27-2023 Protein [Mass/Vol] 7.3 g/dL 6.4-8.9 [facility] RBC Auto (Bld) [#/Vol]Ordere d By: Calros Padilla on 03-27-2023 RBC (Bld) [#/Vol] 4.67 10*6/uL 3.90-5.60 [facility] Serum or plasma albumin/glob ulin mass ratioOrdered By: Carlos Padilla on 03-27-2023 Albumin/Globulin [Mass ratio] 1.5 {ratio} [facility] Serum or plasma anion gap de terminationOrdered By: Carlos Padilla on 03-27-2023 Anion gap [Moles/Vol] 10.1 mmol/L 6.0-15.0 [facility] Sodium [Moles/volume] in Ser um or PlasmaOrdered By: Carlos Padilla on 03-27-2023 Sodium [Moles/Vol] 140 mmol/L 136-145 [facility] Urea nitrogen [Mass/volume] in Serum or PlasmaOrdered By: Carlos Danielsghada on 03-27-2023 Urea nitrogen [Mass/Vol] 16 mg/dL 7-25 [facility] WBC Auto (Bld) [#/Vol]Ordere d By: Carlos Padilla on 03-27-2023 WBC (Bld) [#/Vol] 7.6 10*3/uL 4.1-10.5 [facility] Ambulatory Visit Summaryon 1 Ambulatory Visit Summary JOSH GIL Boby :1975 Visit Date:01/19/2023 Ambulatory Visit Instructions Your Diagnosis BPH with urinary obstruction Nocturia Low energy Prostate cancer screening ED (erectile dysfunction) Tests Performed Urnls Dip Stick Auto w/o Microscopy POC 95402 Your Care Team Attending Physician - Carlos [...] Carlos SORTO MD Where: [facility] Patient Educationon 01-20-20 23 Patient Education Urology Benign Prostatic Hyperplasia Benign [...] Follow these instructions at home: ? Take vwrb-cxi-vllvocs and prescription medicines only as told by [...] (more content not included)... Normal [facility] Urology Office/Clinic Noteon 01-19-2023 Urology Office/Clinic [...] Current level drawn on 10/09/2019 - [phone]). Pt states that his energy has improved. 4. Prostate cancer screening (Z12.5: Encounter for screening for malignant neoplasm of prostate) PSA 02/21/22 - 0.26 Follow-up With When Contact Information LILIA CARDOZA, AMBER Sweeney In 6 months [facility] [address] [place] [address]- Additional Instructions: Patient Education Benign Prostatic Hyperplasia I, Emily Walker , personally scribed for Dr. Sorto on 01/19/2023 16:43:22. . Documentation recorded by the scribEmily jones, accurately reflects the services(s) I performed and [...] (more content not included)... Normal [facility] Comment on above: Result Comment: Elec tronically Signed By: Carlos SORTO MD\.br\Date and Time Signed: 01/19/23 16:44 EDT\.br\Electronically Co-Signed By: Emily Walker\.br\Date and Time Co-Signed: 01/19/23 16:43 EDT Consultation Noteon 07-23-19 Consultation Note [id number] Normal [facility] US SCROTUMon 02-04-2022 US SCROTUM EXAMINATION: [...] by: RALPH KHAN Date: 2022-02-04 13:36 Normal [facility] CBC AUTO DIFFon 06-27-2021 BASO # 0.0 103/ul Normal 0.0-0.1 [facility] Comment on above: Performed By: #### C BC #### [facility] [address] [place] [address] Dr. Maritza Lopez Basophils/100 WBC (Bld) 0.6 % Normal 0.2-2.0 [facility] Comment on above: Performed By: #### C BC #### [facility] [address] [place] [address] Dr. Maritza Lopez EO # 0.2 103/ul Normal 0.0-0.7 [facility] Comment on above: Performed By: #### C BC #### [facility] [address] [place] [address] Dr. Maritza Lopez Eosinophils/100 WBC (Bld) 2.9 % Normal 0.9-7.0 [facility] Comment on above: Performed By: #### C BC #### [facility] [address] [place] [address] Dr. Maritza Lopez Erythrocyte distribution width (RBC) [Ratio] 13.2 % Normal 11.0-15.0 [facility] Comment on above: Performed By: #### C BC #### [facility] [address] [place] [address] Dr. Maritza Lopez Hematocrit (Bld) [Volume fraction] 43.1 % Normal 42.0-54.0 [facility] Comment on above: Performed By: #### C BC #### [facility] [address] [place] [address] Dr. Maritza Lopez Hemoglobin (Bld) [Mass/Vol] 14.2 g/dL Normal 14.0-18.0 [facility] Comment on above: Performed By: #### C BC #### [facility] [address] [place] [address] Dr. Maritza Lopez IG # 0.01 10e3/ul Normal 0.00-0.03 [facility] Comment on above: Performed By: #### C BC #### [facility] [address] [place] [address] Dr. Maritza Lopez IG % 0.2 % Normal 0.0-0.5 [facility] Comment on above: Performed By: #### C BC #### [facility] [address] [place] [address] Dr. Maritza Lopez LYMPH # 2.0 103/ul Normal 1.2-3.8 [facility] Comment on above: Performed By: #### C BC #### [facility] [address] [place] [address] Dr. Maritza Lopez Lymphocytes/100 WBC (Bld) 30.3 % Normal 20.5-60.0 [facility] Comment on above: Performed By: #### C BC #### [facility] [address] [place] [address] Dr. Maritza Lopez MANUAL DIFF REQ NO Normal [facility] Comment on above: Performed By: #### C BC #### [facility] [address] [place] [address] Dr. Maritza Lopez MCH (RBC) [Entitic mass] 30.0 pg Normal 25.9-34.0 [facility] Comment on above: Performed By: #### C BC #### [facility] [address] [place] [address] Dr. Maritza Lopez MCHC (RBC) [Mass/Vol] 32.9 g/dL Normal 29.9-35.2 [facility] Comment on above: Performed By: #### C BC #### [facility] [address] [place] [address] Dr. Maritza Lopez MCV (RBC) [Entitic vol] 91.1 fL Normal 80.0-94.0 [facility] Comment on above: Performed By: #### C BC #### [facility] [address] [place] [address] Dr. Maritza Lopez MONO # 0.8 103/ul Normal 0.3-0.8 [facility] Comment on above: Performed By: #### C BC #### [facility] [address] [place] [address] Dr. Maritza Lopez Monocytes/100 WBC (Bld) 11.6 % Normal 1.7-12.0 [facility] Comment on above: Performed By: #### C BC #### [facility] [address] [place] [address] Dr. Maritza Lopez NEUT # 3.6 103/ul Normal 1.4-6.5 [facility] Comment on above: Performed By: #### C BC #### [facility] [address] [place] [address] Dr. Maritza Lopez Neutrophils/100 WBC (Bld) 54.4 % Normal 43.0-75.0 [facility] Comment on above: Performed By: #### C BC #### [facility] [address] [place] [address] Dr. Maritza Lopez Platelet mean volume (Bld) [Entitic vol] 10.2 fL Normal 9.5-13.5 [facility] Comment on above: Performed By: #### C BC #### [facility] [address] [place] [address] Dr. Maritza Lopez PLT 378 103/ul Normal 150-450 [facility] Comment on above: Performed By: #### C BC #### [facility] [address] [place] [address] Dr. Maritza Lopez RBC 4.73 106/ul Normal 4.70-6.10 [facility] Comment on above: Performed By: #### C BC #### [facility] [address] [place] [address] Dr. Maritza Lopez WBC 6.6 103/ul Normal 4.0-11.0 [facility] Comment on above: Performed By: #### C BC #### [facility] [address] [place] [address] Dr. Maritza Lopez LIPID PROFILEon 06-27-2021 CHOL-HDL RATIO NORM SEE BELOW Normal [facility] Comment on above: Result Comment: 3.3 - 4.4 LOW RISK 4.4 - 7.1 AVERAGE RISK 7.1 - 11.0 MODERATE RISK >11.0 HIGH RISK Performed By: #### L IPID, CMP #### [facility] [address] [place] [address] Dr. Maritza Lopez Cholesterol [Mass/Vol] 164 mg/dL Normal <=200 Th [facility] Comment on above: Performed By: #### L IPID, CMP #### [facility] [address] [address] [address] Maritza Lopez Cholesterol in HDL [Mass/Vol] 55 mg/dL Normal 40-60 [facility] Comment on above: Performed By: #### L IPID, CMP #### [facility] [address] [address] [address] Maritza Lopez Cholesterol in LDL [Mass/Vol] 90.8 mg/dL Normal [facility] Comment on above: Performed By: #### L IPID, CMP #### [facility] [address] [address] [address] Maritza Lopez Cholesterol.total/Chantale sterol in HDL [Mass ratio] 3.0 {ratio} Normal [facility] Comment on above: Performed By: #### L IPID, CMP #### [facility] [address] [address] [address] Maritza Lopez HDL NORMAL > or = 60 mg/dl - LO W CARDIOVASCULAR RISK <40 mg/dl - HIGH CARDIOVASCULAR RISK Normal [facility] Comment on above: Performed By: #### L IPID, CMP #### [facility] [address] [address] [address] Maritza Lopez LDL CALC NORMAL SEE BELOW Normal [facility] Comment on above: Result Comment: <100 mg/dl OPTIMAL 100 - 129 mg/dl NEAR OR ABOVE OPTIMAL 130 - 159 mg/dl BORDERLINE HIGH 160 - 189 mg/dl HIGH >190 mg/dl VERY HIGH Performed By: #### L IPID, CMP #### [facility] [address] [address] [address] Maritza Lopez Triglyceride [Mass/Vol] 91 mg/dL Normal <=150 T [facility] Comment on above: Performed By: #### L IPID, CMP #### [facility] [address] [place] [address] Dr. Maritza Lopez VLDL CALC 18.2 mg/dL Normal [facility] Comment on above: Performed By: #### L IPID, CMP #### [facility] [address] [address] [address] Maritza Lopez PROF 14(COMP METB)on 022 Albumin [Mass/Vol] 3.8 g/dL Normal 3.4-5.0 [facility] Comment on above: Performed By: #### L IPID, CMP #### [facility] [address] [address] [address] Maritza Lopez Albumin/Globulin [Mass ratio] 1.2 {ratio} Normal [facility] Comment on above: Performed By: #### L IPID, CMP #### [facility] [address] [address] [address] Maritza Lopez ALP [Catalytic activity/Vol] 100 U/L Normal 46-116 [facility] Comment on above: Performed By: #### L IPID, CMP #### [facility] [address] [address] [address] Maritza Lopez ALT [Catalytic activity/Vol] 26 U/L Normal 16-63 [facility] Comment on above: Performed By: #### L IPID, CMP #### [facility] [address] [address] [address] Maritza Lopez Anion gap [Moles/Vol] 11.5 mmol/L Normal [facility] Comment on above: Performed By: #### L IPID, CMP #### [facility] [address] [place] [address] Dr. Maritza Lopez AST [Catalytic activity/Vol] 14 U/L Critically low 15-37 [facility] Comment on above: Performed By: #### L IPID, CMP #### [facility] [address] [address] [address] Maritza Lopez Bilirubin [Mass/Vol] 0.4 mg/dL Normal 0.2-1.3 [facility] Comment on above: Performed By: #### L IPID, CMP #### [facility] [address] [address] [address] Maritza Lopez Calcium [Mass/Vol] 8.4 mg/dL Critically low 8.5-10.1 [facility] Comment on above: Performed By: #### L IPID, CMP #### [facility] [address] [place] [address] Dr. Maritza Lopez Chloride [Moles/Vol] 104 mmol/L Normal 98-107 [facility] Comment on above: Performed By: #### L IPID, CMP #### [facility] [address] [address] [address] Maritza Lopez CO2 [Moles/Vol] 30.6 mmol/L Critically high 22.0-30.0 [facility] Comment on above: Performed By: #### L IPID, CMP #### [facility] [address] [place] [address] Dr. Maritza Lopez Creatinine [Mass/Vol] 1.07 mg/dL Normal 0.66-1.25 [facility] Comment on above: Performed By: #### L IPID, CMP #### [facility] [address] [place] [address] Dr. Maritza Loepz EGFR-AF GEORGIAN >60 Normal >=60 [facility] Comment on above: Performed By: #### L IPID, CMP #### [facility] [address] [place] [address] Dr. Maritza Lopez EGFR-NON AF GEORGIAN >60 Normal >=60 [facility] Comment on above: Performed By: #### L IPID, CMP #### [facility] [address] [place] [address] Dr. Maritza Lopez Globulin (S) [Mass/Vol] 3.3 g/dL Normal [facility] Comment on above: Performed By: #### L IPID, CMP #### [facility] [address] [address] [address] Maritza Lopez Glucose [Mass/Vol] 110 mg/dL Critically high 74-106 [facility] Comment on above: Performed By: #### L IPID, CMP #### [facility] [address] [place] [address] Dr. Maritza Lopez Potassium [Moles/Vol] 4.1 mmol/L Normal 3.4-5.0 [facility] Comment on above: Performed By: #### L IPID, CMP #### [facility] [address] [place] [address] Dr. Maritza Lopez Protein [Mass/Vol] 7.1 g/dL Normal 6.1-8.2 [facility] Comment on above: Performed By: #### L IPID, CMP #### [facility] [address] [address] [address] Maritza Lopez Sodium [Moles/Vol] 142 mmol/L Normal 137-145 [facility] Comment on above: Performed By: #### L IPID, CMP #### [facility] [address] [address] [address] Maritza Lopez Urea nitrogen [Mass/Vol] 17.0 mg/dL Normal 7.0-18.0 [facility] Comment on above: Performed By: #### L IPID, CMP #### [facility] [address] [address] [address] Maritza Lopez Urea nitrogen/Creatinine [Mass ratio] 15.9 mg/mg Normal [facility] Comment on above: Performed By: #### L IPID, CMP #### [facility] [address] [place] [address] Dr. Maritza Lopez Social History Date Type Detail Facility Start: 04-13-2023 End: 05-18-2023 Sex Assigned At Male David Donovan [facility] Start: 04-13-2023 End: 05-18-2023 History of Social function [facility] Start: 02-05-2023 Tobacco use and exposure Smokeless tobacco non-user [facility] Start: 03-04-2022 End: 03-27-2023 Tobacco smoking status Never smoked tobacco (finding) [facility] [place] Start: 1975 Sex Assigned At Not on file [facility] Start: 1975 Sex Assigned At Male [facility] Tobacco smoking status Never [facility] [place] Vital Signs Date Time Vital Sign Value Performing Clinician Facility 09-14-2023 15:44-0400 Body height 180.34 cm [facility] 09-14-2023 15:44-0400 Body mass index (BMI) [Ratio] 33.1 kg/m2 [facility] 09-14-2023 15:44-0400 Body weight 107.72 kg [facility] 09-14-2023 15:44-0400 Diastolic blood pressure 88 mm[Hg] [facility] 09-14-2023 15:44-0400 Heart rate 63 /min [facility] 09-14-2023 15:44-0400 Respiratory rate 12 /min [facility] 09-14-2023 15:44-0400 Systolic blood pressure 145 mm[Hg] [facility] 07-06-2023 15:44-0400 Blood Pressure Location Carlosyao SORTO [facility] 07-06-2023 15:44-0400 Body temperature 98.42 [degF] Carlos SORTO [facility] 07-06-2023 15:44-0400 Diastolic blood pressure 84 mm[Hg] Carlos SORTO [facility] 07-06-2023 15:44-0400 Heart rate 70 /min Carlos SORTO [facility] 07-06-2023 15:44-0400 Respiratory rate 16 /min Carlos SORTO [facility] 07-06-2023 15:44-0400 Systolic blood pressure 135 mm[Hg] Carlos SORTO [facility] 06-16-2023 15:56-0400 Body height 180.34 cm [facility] 06-16-2023 15:56-0400 Body mass index (BMI) [Ratio] 33 kg/m2 [facility] 06-16-2023 15:56-0400 Body weight 107.5 kg [facility] 06-16-2023 15:56-0400 Diastolic blood pressure 87 mm[Hg] [facility] 06-16-2023 15:56-0400 Heart rate 68 /min [facility] 06-16-2023 15:56-0400 Systolic blood pressure 135 mm[Hg] [facility] 05-22-2023 17:53-0500 Body height 181.61 cm DO Jaren Ball Work Phone: [facility] 05-22-2023 17:53-0500 Body mass index (BMI) [Ratio] 32.5 kg/m2 DO Jaren Ball Work Phone: [facility] 05-22-2023 17:53-0500 Body temperature 98.9 [degF] DO Jaren Ball Work Phone: [facility] 05-22-2023 17:53-0500 Body weight 107.5 kg DO Jaren Ball Work Phone: [facility] 05-22-2023 17:53-0500 Diastolic blood pressure 85 mm[Hg] DO Jaren Ball Work Phone: [facility] 05-22-2023 17:53-0500 Heart rate 75 /min DO Jaren Ball Work Phone: [facility] 05-22-2023 17:53-0500 Respiratory rate 18 /min DO Jaren Ball Work Phone: [facility] 05-22-2023 17:53-0500 SaO2% (BldA) [Mass fraction] 96 % DO Jaren Ball Work Phone: [facility] 05-22-2023 17:53-0500 Systolic blood pressure 135 mm[Hg] DO Jaren Ball Work Phone: [facility] 05-09-2023 13:45-0500 Body height 181.61 cm Nola Segura Other [facility] 05-09-2023 13:45-0500 Body mass index (BMI) [Ratio] 32.45 kg/m2 Nola Segura Other [employer] Other 05-09-2023 13:45-0500 Body temperature 98.4 [degF] Nola Segura Other [employer] Other 05-09-2023 13:45-0500 Body weight 107.05 kg Nola Segura Other [employer] Other 05-09-2023 13:45-0500 Body weight 107.04 kg DO Jaren Ball Work Phone: [facility] 05-09-2023 13:45-0500 Respiratory rate 16 /min Nola Segura Other [employer] Other 05-09-2023 13:45-0500 SaO2% (BldA) [Mass fraction] 97 % Nola Segura Other [facility] [employer] Other 04-15-2023 15:00-0500 Body height 181.61 cm Jaren Ball Other [facility] 04-15-2023 15:00-0500 Body mass index (BMI) [Ratio] 33.31 kg/m2 Jaren Ball Other [facility] [employer] Other 04-15-2023 15:00-0500 Body weight 109.86 kg Jaren Ball Other [facility] 04-15-2023 15:00-0500 Diastolic blood pressure 86 mm[Hg] Jaren Ball Other [facility] 04-15-2023 15:00-0500 Respiratory rate 12 /min Jaren Ball Other [facility] [employer] Other 04-15-2023 15:00-0500 Systolic blood pressure 135 mm[Hg] Jaren Ball Other [facility] 03-27-2023 18:42-0500 Diastolic blood pressure 87 mm[Hg] DO Jaren Ball Work Phone: [facility] 03-27-2023 18:42-0500 Heart rate 60 /min DO Jaren Ball Work Phone: [facility] 03-27-2023 18:42-0500 Respiratory rate 17 /min DO Jaren Ball Work Phone: [facility] 03-27-2023 18:42-0500 SaO2% (BldA) [Mass fraction] 98 % DO Jaren Ball Work Phone: [facility] 03-27-2023 18:42-0500 Systolic blood pressure 151 mm[Hg] DO Jaren Ball Work Phone: [facility] 03-27-2023 14:28-0500 Body height 182.88 cm DO Jaren Ball Work Phone: [facility] 03-27-2023 14:28-0500 Body temperature 98 [degF] DO Jaren Ball Work Phone: [facility] 03-27-2023 14:28-0500 Body weight 108.7 kg DO Jaren Ball Work Phone: [facility] 01-19-2023 15:55-0400 Blood Pressure Location Carlosyao SORTO [facility] 01-19-2023 15:55-0400 Diastolic blood pressure 69 mm[Hg] Carlos SORTO [facility] 01-19-2023 15:55-0400 Heart rate 80 /min Carlos SORTO [facility] 01-19-2023 15:55-0400 Respiratory rate 16 /min Carlos SORTO [facility] 01-19-2023 15:55-0400 Systolic blood pressure 138 mm[Hg] Carlos SORTO [facility] 09-08-2022 15:00-0400 Body height 181.61 cm Jaren Ball Other [employer] Other 09-08-2022 15:00-0400 Body mass index (BMI) [Ratio] 32.37 kg/m2 Jaren Ball Other [employer] Other 09-08-2022 15:00-0400 Body weight 106.78 kg Jaren Ball Other [employer] Other 09-08-2022 15:00-0400 Diastolic blood pressure 89 mm[Hg] Jaren Ball Other [employer] Other 09-08-2022 15:00-0400 Respiratory rate 12 /min Jaren Ball Other [employer] Other 09-08-2022 15:00-0400 Systolic blood pressure 139 mm[Hg] Jaren Ball Other [employer] Other 03-04-2022 15:05-0500 Blood Pressure Location Sadi N[facility] [facility] 03-04-2022 15:05-0500 Diastolic blood pressure 94 mm[Hg] Sadi NILL [facility] 03-04-2022 15:05-0500 Heart rate 82 /min Sadi NILL [facility] 03-04-2022 15:05-0500 Respiratory rate 16 /min Sadi NILL [facility] 03-04-2022 15:05-0500 Systolic blood pressure 144 mm[Hg] Sadi NILL [facility] Functional Status Date Assessment Result Facility 07-06-2023 Functional Status N/A [facility] 01-19-2023 Functional Status N/A [facility] 03-04-2022 Functional Status N/A [facility] [place] Clinical Notes 09-08-2022 to 07-06-2023 Radha Terrell, RIM BUSTER-NURSE STAFF - 05/14/2023 4:05 PM EST Note Date [...] urethra. Follow these instructions at home: Take [id number]-[id number] and prescription medicines only as told by [...] provider. Document Revised: 10/09/2021 Document Reviewed: 10/09/2021 [employer] Patient Education 2022 [email or web address]. Follow Up Care 01/19/2023 16:46:04 With:LILIA CARDOZA, Carlos Villanueva, URL Address: [facility] [address] [place] [address]- [phone] When: Unknown Comments:1 yr (no labs) [facility] [place] 05-14-2023 History of Present illness [...] until wart resolves. Fluowart order faxed to [facility] Patient elected for cryotherapy today, see procedure note. Diagnosis: Verruca Indication: Inflamed Consent: Verbal consent was obtained and risks were discussed, including, but not limited to risks of scarring, darker or mergers and acquisitions attorney pigmentary changes, recurrence, incomplete removal and infection. [...] Visit: 4 weeks documented in this encounter [facility] 05-09-2023 Evaluation note Encounter Date Diagnosis Assessment [...] days May, Sore throat (ICD-10 - J02.9) [employer] Other 01-10-2024 Evaluation note* Encounter Date Diagnosis [...] best 2/3 readings w/ goal < 135/85. Apr, LALITO (generalized anxiety disorder) (ICD-10 - F41.1) [...] disorder, not otherwise specified (ICD-10 - F99) [employer] Other 10-16-2023 Hospital Discharge instructions Patient Education [...] urethra. Follow these instructions at home: Take wcsj-zra-zkthwip and prescription medicines only as told by [...] provider. Document Revised: 10/09/2021 Document Reviewed: 10/09/2021 [employer] Patient Education 2022 [email or web address]. Follow Up Care 01/13/2022 17:13:17 With:LILIA CARDOZA, Carlos Villanueva, URL Address: [facility] [address] [place] [address]- When:Within 6 Month(s) [facility] 08-16-2023 Evaluation note* Encounter Date Diagnosis Assessment Notes Treatment Notes Treatment Clinical Notes Nov, Seasonal allergic rhinitis, unspecified trigger (ICD-10 - J30.2) [employer] Other 06-05-2023 Evaluation note* Encounter Date Diagnosis [...] [BMI ] 32.0-32.9, adult (ICD-10 - Z68.32) [employer] Other Evaluation + Plan note Future Appointments Appointment Date:01/19/2023 03:15:00 PM Scheduled Provider:Carlos SORTO MD Location:[facility] Appointment Type:URO Office Visit General Surgery [place] Evaluation + Plan note Future Appointments Appointment Date:07/13/2023 08:45:00 AM Scheduled Provider:Carlos SORTO MD Location:[facility] Appointment Type:URO Office Visit [facility] evaluation + Plan note Future Appointments Appointment Date:07/11/2024 03:15:00 PM Scheduled Provider:[facility] App[facility] Type:[facility]O Office Visit [facility] evaluation + Plan note Future Appointments Appointment Date:07/11/2024 03:15:00 PM Scheduled Provider:Carlos SORTO MD Location:[facility] Appointment Type:URO Office Visit Diagnostic Tests Pending * PSA [facility], [facility] InformationN[facility] Other Evaluation note* Diagnosis Common wart- Primary Other specified viral warts Other specified erythematous conditions documented [facility] this encounter [facility] noteNo assessment information availableSelect [facility] Work Phone: Evaluation note* Diagnosis Onset Date Resolution Status LALITO (generalized anxiety disorder) acute Obesity acute Primary hypertension acute Benign prostatic hyperplasia with lower urinary tract symptoms acute LALITO (generalized anxiety disorder) acute Gastro-esophageal reflux dis ease with esophagitis, without bleeding acute Primary hypertension acute Wellness examination noneact [facility] Work Phone: [employer] general Narrative - Reported* Type Description Date Medical History Acid reflux Medical History enlarged prostate Surgical History appendectomy [employer] Other [facility] general Narrative - Reported* Type Description Date Medical History Acid reflux Medical History enlarged prostate Surgical History appendectomy Surgical History COLONOSCOPY 2021 Surgical History EGD 2020 Surgical History HERNIORRHAPHY,INCISIONAL OR ADRY TRAL 2020 Hospitalization History SEE SURGICAL HX [employer] Other Hospital course Narrative No data available for this section [facility] [place] [facility] Discharge instructions No data available for this section General Surgery [place] note No data available for this section General Surgery [place] Summary Purpose Family History Relationship Condition Age at Onset Recorded Date/T aditya father Diabetes mellitus Unknown Advance Directives Advance Directive Response Recorded Date/ Time Advance Directives No August 23 10:05am Advance Directive Response Recorded Date/ Time Advance Directives No August 23 9 11:05am Chief Complaint and Reason for Visit [...] and content) DATE CREATED AUTHOR 02/24/2022 [facility] DATE CREATED AUTHOR AUTHOR'S ORGANIZ ATION 04/10/2023 [facility] DATE CREATED AUTHOR AUTHOR'S ORGANIZ ATION 05/16/2023 [facility] DATE CREATED AUTHOR AUTHOR'S ORGANIZ ATION 07/09/2023 [facility] Patient Care team informatio n (unrecognized section [...] Inactive Member Role Status Dates Jaren Price , Primary Care Provide r, Attending Provider Active [...] BE BASED ON THE PRIMARY CLINICAL RECORDS. [facility]. provides no warranty or guarantee of the accuracy or completeness of information in this document.
== END 2023-10-12 15:23 | disposition home or self-care (01) ==
LOC: EC 15:22
PROVIDERS: PCP Internal Medicine; Visit Provider Student in an Organized Health Care Education/Training Program
DX: M25.561 Pain in right knee (principal)
CPT/HCPCS: 73564

== ENCOUNTER 2024-05-02 15:02 | Outpatient (OUT) | payer OTHER, SELFPAY ==
--- NOTE | 2024-05-02 | XR_ITS ---
The [address] [address] Patient Name: VERONA MELISSA MRN: [id number] date: 1975 Sex: M Assigned Patient Location: Current Patient Location: Accession/Order Number: [id number] Exam Date: 05/02/2024 15:02 Report Date: 05/03/2024 05:50 At the request of: KENNEDY BARRIOS Procedure: XR knee LT 4V PROCEDURE: XR knee LT 4V HISTORY: LEFT KNEE PAIN COMPARISON: None. FINDINGS: BONES:Mild narrowing of the medial joint space. No fracture, dislocation, bone lesion. Tiny degenerative osteophytes along the articular margins of the patella. SOFT TISSUES:No visible soft tissue swelling. EFFUSION:None visible. OTHER: Negative. XR/XR knee LT 4V IMPRESSION: 1. No acute bone abnormality. Minimal degenerative changes. Electronically authenticated by: STEVEN EASTMAN Date: 05/03/2024 05:50
--- OUTSIDE RECORDS SUMMARY | 2024-05-02 15:18 | XMS_ITS | CCD ---
Author Organization [facility] Care Team Providers Care Manufacturing Operations Manager Name Role Phone DR CARLOS SORTO Admitting Unavailable LILIA, DR MONACO Attending Unavailable ALBERT, DR VIZCAINO Primary Care Unavailable LILIA, DR MONACO Consulting Unavailable ALBERT, DR VIZCAINO Admitting Unavailable ALBERT, DR VIZCAINO Attending Unavailable ALBERT, DR VIZCAINO Primary Care Unavailable ALBERT, DR VIZCAINO Consulting Unavailable MERNA KEENAN Admitting Unavailable MERNA KEENAN Attending Unavailable ALBERT, DR VIZCAINO Primary Care Unavailable Donaldo, DR Robles Consulting Unavailable SHLOMO, MERNA Consulting Unavailable JAREN PRICE Primary Care Physician Natalia Delgado Unavailable Jaren Price Unavailable Jaren Price Primary Care Unavailable Carlos Padilla Attending Unavailable Carlos Padilla Admitting Unavailable Nola Segura Unavailable Unavailable Primary Care Provider UnavailDO Jaren Adamson Primary Care Provider [phone] DO Carlos Padilla Emergency Provider [phone] Carlos SORTO Attending Unavailable Carlos SORTO Attending Unavailable SORTO, Carlos Villanueva Attending Unavailable Carlos SORTO Admitting Unavailable LILIA, Carlos Villanueva Attending Unavailable SORTOCarlos Attending Unavailable RADHA TERRELL Attending Unavailable RADHA TERRELL Attending Unavailable RADHA TERRELL Attending Unavailable Allergies Allergy Classification Reported Allergen(s) Allergy Type Date of Onset Reaction(s) Facility (1 source) patient allergy list reviewed by nurse or physicia Propensity to adverse reactions Comment:Done [employer] Other Medications Current Medications Medication Drug Class(es) Dates Sig (Normalized) Sig (Original) doxycycline hyclate 100 mg oral capsule (1 source) Tetracycline-clas s Drug Start: 04-23-2024 take 1 capsule by mouth twice daily Doxycycline Hyclate 100 mg capsule Active 100 MG PO Twice daily 20 April 23, 2024 12:00am finasteride 5 mg oral tablet (20 sources) 5-alpha Reductase Inhibitor Start: 03-27-2021 take 1 tablet by mouth once daily Finasteride 5 mg tablet Active 5 MG PO Daily March 27, 2021 12:00am Finasteride Acti ve hyoscyamine sulfate 0.125 mg sublingual tablet (3 sources) Start: 08-21-2018 take 1 tablet by mouth every eight hours Hyoscyamine Sulfate 0.125 MG 1 tablet under the tongue and allow to dissolve as needed Sublingual every 8 hrs August, Active naproxen 500 mg oral tablet (1 source) Nonsteroidal Anti-inflammatory Drug Start: 04-23-2024 take 1 tablet by mouth twice daily as needed for pain Naproxen 500 mg tablet Active 500 MG PO Twice daily as needed for pain 30 April 23, 2024 12:00am Pantoprazole 40 mg tablet,delayed release (DR/EC) (2 sources) Start: 11-16-2023 take 1 tablet by mouth once daily at breakfast Pantoprazole 40 mg tablet,delayed release (DR/EC) Active 0 .ROUTE .COMPLEX November 16, 2023 12:11pm TAKE 1 TABLET BY MOUTH DAILY ON AN EMPTY STOMACH FOLLOWED IN 30 MINUTES BY BREAKFAST sulfamethoxazole 800 mg / trimethoprim 160 mg oral tablet (3 sources) Dihydrofolate Reductase Inhibitor Antibacterial, Sulfonamide Antimicrobial Start: 08-21-2018 take 1 tablet by mouth every twelve hours Bactrim DS 800-160 MG 1 tablet Orally Twice a day for 10 day(s) August, Active tadalafil 10 mg oral tablet (17 sources) Phosphodiesterase 5 Inhibitor Start: 01-19-2023 take 1 tablet by mouth every other day Tadalafil 10 mg tablet Active 10 MG PO As Directed March 27, 2023 12:00am patient reports he only takes this every other day Start: 01-19-2023 End: 06-30-2024 take 1 tablet by mouth once daily Cialis 10 mg Tab 10 mg = 1 tab(s), Oral, Daily, X 90 day(s), # 90 tab(s), Refills(s) 3, Pharmacy: [facility] [id number], 183, cm, 07/06/23 15:59:00 EDT, Height/Length Dosing, 105.7, kg, 07/06/23 15:59:00 EDT, Weight Dosing Start Date: 07/06/23 Stop Date: 06/30/24 Status: Ordered Tadalafil Active tamsulosin hydrochloride 0.4 mg oral capsule (20 sources) alpha-Adrenergic Graham Start: 08-18-2022 take 1 capsule by mouth every twenty-four hours tamsulosin (Flomax) 0.4 MG 24 hr capsule Take 0.4 mg by mouth. 08/18/2022 Active Start: 03-27-2021 take 1 capsule by mo ut twice daily Tamsulosin (Flomax) 0.4 mg capsule Active 0.4 MG PO Twice daily March 27, 2021 12:00am take [address] [facility] every twenty-four hours Tamsulosin HCl 0.4 MG 1 capsule Orally Once a day Active Tamsulosin HCl A ctive Completed/Discontinued Medications Medication Drug Class(es) Dates Sig (Normalized) Sig (Original) acetaminophen 325 mg / HYDROcodone bitartrate 5 mg oral tablet (5 sources) Opioid Agonist Start: 03-27-2021 End: 03-27-2021 Hydrocodone-Acetam inophen 5-325 mg tablet Discontinued 1 TAB PO As Directed March 27, 2021 12:00am March 27, 2021 6:30am amoxicillin 875 mg / clavulanate 125 mg oral tablet (6 sources) Penicillin-class Antibacterial Start: 03-25-2024 End: 04-19-2024 take 1 tablet by mouth twice daily at mealtime Amoxicillin-Pot Clavulanate 875-125 mg tablet Discontinued 1 TAB PO Twice daily 17 10March 25, 2024 12:00am April 19, 2024 5:35pm take with food Start: 05-22-2023 End: 06-15-2023 take 1 tablet by mouth twice daily Amoxicillin-Pot Clavulanate 875-125 mg tablet Discontinued 1 TAB PO Twice daily May 22, 2023 12:00am June 15, 2023 7:57am benzonatate 200 mg oral capsule (2 sources) Non-narcotic Antitussive Start: 03-25-2024 End: 04-19-2024 take 1 capsule by mouth three times daily as needed for cough Benzonatate 200 mg capsule Discontinued 200 MG PO Three times daily as needed for cough March 25, 2024 12:00am April 19, 2024 5:35pm dicyclomine hydrochloride 20 mg oral tablet (5 sources) Anticholinergic Start: 03-27-2021 End: 03-27-2021 Dicyclomine 20 mg tablet Discontinued 20 MG PO As Directed March 27, 2021 12:00am March 27, 2021 6:30am escitalopram 20 mg oral tablet (20 sources) Serotonin Reuptake Inhibitor Start: 11-16-2023 End: 04-19-2024 take 1 tablet by mouth once daily Escitalopram Oxalate 20 mg tablet Discontinued 0 .ROUTE .COMPLEX February 14, 2024 8:37pm April 19, 2024 5:42pm TAKE 1 TABLET BY MOUTH DAILY Start: 09-14-2023 End: 11-16-2023 Escitalopram Oxalate 10 mg t ablet Discontinued 10 MG PO .COMPLEX 01 17September 14, 2023 3:11pm November 16, 2023 12:11pm 10 mg orally 7 days then 15mg x 7 days; Start: 07-06-2023 escitalopram 1 0 mg Tab Refills(s) 0 Start Date: 07/06/23 Status: Ordered Start: 06-16-2023 End: 09-14-2023 take 1 tablet by mouth once daily Escitalopram Oxalate 20 mg tablet Discontinued 20 MG PO Daily June 16, 2023 3:25pm September 14, 2023 3:13pm Start: 06-12-2023 End: 06-16-2023 take 1 tablet by mouth once daily Escitalopram Oxalate 10 mg tablet Discontinued 10 MG PO Daily June 12, 2023 5:53pm June 16, 2023 3:28pm Start: 04-15-2023 take 1 tablet by ramni th every twenty-four hours Escitalopram Oxalate 10 MG 1 tablet Orally Once a day for 30 days Apr, Active fluticasone propionate 0.05 mg/actuat metered dose nasal spray (6 sources) Corticosteroid Start: 05-22-2023 End: 04-19-2024 take 1 spray(s) nasal route once daily Fluticasone Propionate (Allergy Relief (Fluticasone)) 50 mcg/actuation spray,suspension Discontinued 1 SPRAY INTRANASAL Daily 16 March 25, 2024 12:00am April 19, 2024 5:42pm administer into each nostril lisinopril 10 mg oral tablet (8 sources) Angiotensin Converting Enzyme Inhibitor Start: 03-27-2023 End: 06-16-2023 take 1 tablet by mouth once daily Lisinopril 10 mg tablet Discontinued 10 MG PO Daily March 27, 2023 12:00am June 16, 2023 3:25pm Lisinopril Activ e pantoprazole 40 mg delayed release oral tablet (20 sources) Proton Pump Inhibitor Start: 01-02-2021 End: 11-16-2023 take 1 tablet by mouth once daily Pantoprazole 40 mg tablet,delayed release (DR/EC) Discontinued 40 MG PO Daily August 08, 2021 11:00pm November 16, 2023 12:11pm Pantoprazole Sod ium Active predniSONE 10 mg oral tablet (7 sources) Start: 09-21-2023 End: 04-19-2024 Prednisone 10 mg tablet Discontinued 10 MG PO As Directed 18 September 20, 2023 11:00pm April 19, 2024 5:35pm 1 tab tid w/ food x 3 days, then bid w/ food x 3 days, then qd w/ food x 3 days Start: 05-22-2023 End: 06-15-2023 take 2 tablets by mouth once daily Prednisone 20 mg tablet Discontinued 40 MG PO Daily 10 May 22, 2023 12:00am June 15, 2023 7:57am Start: 05-22-2023 End: 06-15-2023 take 40 mg by mouth once daily Prednisone Discontinued 40 MG PO Daily 01 08May 22, 2023 1:00am June 15, 2023 8:57am triamcinolone acetonide 40 mg/ml injectable suspension (4 sources) Corticosteroid Start: 11-19-2022 Kenalog-40 Nov, 60 mg zolpidem tartrate 5 mg oral tablet (10 sources) gamma-Aminobutyric Acid-ergic Agonist Start: 06-15-2023 End: 04-19-2024 take 1 tablet by mouth once daily at bedtime as needed Zolpidem 5 mg tablet Discontinued 5 MG PO Daily at bedtime as needed June 14, 2023 11:00pm April 19, 2024 5:43pm Start: 04-15-2023 take 1 tablet by ramin every twenty-four hours Zolpidem Tartrate 5 MG 1 tablet at bedtime as needed Orally Once a day for 30 days Apr, Active Problems Active Problems Problem Classification Problem Date Documented Date Episodic/Chronic Abdominal hernia (4 sources) Ventral incisional hernia 01-02-2021 Episodic Abdominal pain (10 sources) Epigastric pain; Translations: [Epigastric pain] Onset: 09-29-2017 Resolved: 06-24-2021 05-07-2022 Episodic Anxiety disorders (12 sources) Generalized anxiety disorder; Translations: [Generalized anxiety disorder] Chronic Esophageal disorders (20 sources) Gastroesophageal reflux disease; Translations: [Gastro-esophageal reflux disease without esophagitis] Onset: 12-13-2014 06-27-2019 Chronic Comment on above: Problem List clean-u p per request of Phys. EHR Cmte Esophageal disorders (5 sources) Esophageal disorders; Translations: [Gastroesophageal reflux disease with esophagitis without hemorrhage] Essential hypertension (20 sources) Hypertensive disorder; Translations: [Essential hypertension] Onset: [...] 02-24-2022 01-07-2021 Episodic Miscellaneous mental health disorders (12 sources) Insomnia disorder related to another mental disorder; Translations: [Insomnia due to other mental disorder] Chronic Other and unspecified benign neoplasm (2 sources) Melanocytic nevus of trunk; Translations: [Melanocytic nevi of trunk] 03-08-2024 Episodic Other diseases of veins and lymphatics (1 [...] Translations: [HYDROCELE UNSPECIFIED] Onset: 02-07-2022 Episodic Other non-traumatic joint disorders (4 sources) Pain in unspecified knee; Translations: [Knee pain] 09-14-2023 Episodic Other nutritional; endocrine; and metabolic disorders (9 sources) Body mass index 30+ - obesity; Translations: [Body mass index (BMI) 32.0-32.9, adult] 03-04-2022 Chronic Other nutritional; endocrine; and metabolic disorders (10 sources) Obesity; Translations: [Other obesity due to [...] conditions (not mental disorders or infectious disease) (8 sources) Encounter for screening for malignant neoplasm of prostate; Translations: [Screening for malignant neoplasm done] Onset: 02-24-2022 Episodic Comment on above: Problem List clean-u p per request of Phys. EHR Cmte Other skin disorders (2 sources) Inflamed seborrheic keratosis; Translations: [Inflamed seborrheic keratosis] 03-08-2024 Episodic Other skin disorders (2 sources) Lentiginosis; Translations: [Other melanin hyperpigmentation] 03-08-2024 Episodic Other upper respiratory disease (1 source) Allergic rhinitis; Translations: [Allergic rhinitis, unspecified] Chronic Other upper respiratory disease (5 sources) Seasonal allergic rhinitis; Translations: [Other seasonal allergic rhinitis] Chronic Other upper respiratory disease (1 source) Other seasonal allergic rhinitis Chronic Other upper respiratory disease (5 sources) Seasonal allergy; Translations: [Other seasonal allergic rhinitis] 05-22-2023 Chronic Other upper respiratory infections (9 sources) Acute pharyngitis; Translations: [Acute pharyngitis, unspecified] Onset: 03-02-2013 Episodic Otitis media and related conditions (1 source) Dysfunction of right eustachian tube; Translations: [Other specified disorders of Eustachian tube, right ear] Episodic Residual codes; unclassified (5 sources) Past history of procedure; Translations: [Other specified postprocedural states] 05-22-2023 Episodic Unclassified (4 sources) Patient encounter status 01-13-2022 Viral infection (4 sources) Verruca vulgaris; Translations: [Other viral warts] [...] Test Name Value Interpretation Reference Range Facility Influenza virus B Ag [Presen ce] in Upper respiratory specimen by Rapid immunoassayon 03-25-2024 FLUBV Ag IA.rapid Ql (Nph) Influenza virus B Ag [Presence] in Upper respiratory specimen by Rapid immunoassay [facility] No Panel Informationon 03-25 Influenza Type A (Rapid) Negative [facility] POC SARS CoV-2 Antigen Positive [facility] No Panel Informationon 03-08 [facility] Basophils Auto (Bld) [#/Vol] on 10-02-2023 Basophils (Bld) [#/Vol] 0.1 10 3/uL 0.0-0.1 [facility] Basophils/100 WBC Auto (Bld) on 10-02-2023 Basophils/100 WBC (Bld) 0.7 % 0.2-2.0 [facility] Cholesterol in LDL Calc [Mas s/Vol]on 10-02-2023 Cholesterol in LDL [Mass/Vol] 83.0 mg/dL [facility] Comment on above: <100 mg/dl [id number] 0-129 mg/dl NEAR OR ABOVE [id number] mg/dl BORDERLINE [id number] mg/dl HIGH>190 mg/dl VERY HIGH Cholesterol in VLDL Calc [Ma ss/Vol]on 10-02-2023 Cholesterol in VLDL [Mass/Vol] 37.8 mg/dL [facility] Eosinophils/100 WBC Auto (Bl d)on 10-02-2023 Eosinophils/100 WBC (Bld) 2.1 % 0.9-7.0 [facility] Erythrocyte distribution wid th Auto (RBC) [Ratio]on 10-02-2023 Erythrocyte distribution width (RBC) [Ratio] 13.2 % 11.0-15.0 [facility] Estimated glomerular filtrat ion rate (GFR) non- Americanon 10-02-2023 GFR/1.73 sq M.predicted among non-blacks MDRD (S/P/Bld) [Vol rate/Area] mL/min/{1.73_m2} >=60 [facility] Globulin Calc (S) [Mass/Vol] on 10-02-2023 Globulin (S) [Mass/Vol] 3.5 g/dL [facility] Hematocrit Auto (Bld) [Volum e fraction]on 10-02-2023 Hematocrit (Bld) [Volume fraction] 43.0 % 42.0-54.0 [facility] Hemoglobin [Mass/volume] in Bloodon 10-02-2023 Hemoglobin (Bld) [Mass/Vol] 14.3 g/dL 14.0-18.0 [facility] Laboratory - Chemistry and C hemistry - challengeon 10-02-2023 Albumin [Mass/Vol] 3.5 g/dL 3.4-5.0 [facility] ALP [Catalytic activity/Vol] 103 U/L 46-116 [facility] ALT [Catalytic activity/Vol] 24 U/L 16-63 [facility] AST [Catalytic activity/Vol] 16 U/L 15-37 [facility] Bilirubin [Mass/Vol] 0.5 mg/dL 0.2-1.0 [facility] Calcium [Mass/Vol] 8.3 mg/dL Low 8.5-10.1 [facility] Chloride [Moles/Vol] 105 mmol/L 98-107 [facility] Cholesterol [Mass/Vol] 178 mg/dL <=200 [facility] Cholesterol in HDL [Mass/Vol] 58 mg/dL 40-60 [facility] Comment on above: > or =60 mg/dl - LOW CARDIOVASCULAR RISK<40 mg/dl - HIGH CARDIOVASCULAR RISK CO2 [Moles/Vol] 30.0 mmol/L 21.0-32.0 [facility] Creatinine [Mass/Vol] 0.85 mg/dL 0.70-1.30 [facility] GFR/1.73 sq M.predicted MDRD (S/P/Bld) [Vol rate/Area] mL/min/{1.73_m2} >=60 [facility] Glucose [Mass/Vol] 100 mg/dL 74-106 [facility] Potassium [Moles/Vol] 4.0 mmol/L 3.5-5.1 [facility] Protein [Mass/Vol] 7.0 g/dL 6.4-8.2 [facility] Sodium [Moles/Vol] 141 mmol/L 136-145 [facility] Triglyceride [Mass/Vol] 189 mg/dL High <=150 [facility] Urea nitrogen [Mass/Vol] 18.0 mg/dL 7.0-18.0 [facility] Urea nitrogen/Creatinine [Mass ratio] 21.2 mg/mg [facility] Laboratory - Hematology and Cell countson 10-02-2023 Immature granulocytes/100 WBC (Bld) 0.3 % 0.0-0.5 [facility] Leukocytes [#/volume] correc belinda for nucleated erythrocytes in Blood by Automated counon 10-02-2023 WBC corrected for nucl RBC Auto (Bld) [#/Vol] 7.7 10 3/uL 4.0-11.0 [facility] Lymphocytes Auto (Bld) [#/Vo l]on 10-02-2023 Lymphocytes (Bld) [#/Vol] 2.1 10 3/uL 1.2-3.8 [facility] Lymphocytes/100 WBC Auto (Bl d)on 10-02-2023 Lymphocytes/100 WBC (Bld) 27.3 % 20.5-60.0 [facility] MCH Auto (RBC) [Entitic mass ]on 10-02-2023 MCH (RBC) [Entitic mass] 30.1 pg 25.9-34.0 [facility] MCHC Auto (RBC) [Mass/Vol]on 10-02-2023 MCHC (RBC) [Mass/Vol] 33.3 g/dL 29.9-35.2 [facility] MCV Auto (RBC) [Entitic vol] on 10-02-2023 MCV (RBC) [Entitic vol] 90.5 fL 80.0-94.0 [facility] Monocytes Auto (Bld) [#/Vol] on 10-02-2023 Monocytes (Bld) [#/Vol] 0.9 10 3/uL High 0.3-0.8 [facility] Monocytes/100 WBC Auto (Bld) on 10-02-2023 Monocytes/100 WBC (Bld) 11.4 % 1.7-12.0 [facility] Neutrophils Auto (Bld) [#/Vo l]on 10-02-2023 Neutrophils (Bld) [#/Vol] 4.5 10 3/uL 1.4-6.5 [facility] Neutrophils/100 WBC Auto (Bl d)on 10-02-2023 Neutrophils/100 WBC (Bld) 58.2 % 43.0-75.0 [facility] No Panel Informationon 10-01 Eosinophils # (Auto) 0.2 10 3/uL 0.0-0.7 [facility] Immature Granulocyte # (Auto) 0.02 10 3/uL 0.00-0.03 [facility] Platelet mean volume Auto (B ld) [Entitic vol]on 10-02-2023 Platelet mean volume (Bld) [Entitic vol] 9.9 fL 9.5-13.5 [facility] Platelets Auto (Bld) [#/Vol] on 10-02-2023 Platelets (Bld) [#/Vol] 394 10 3/uL 150-450 [facility] RBC Auto (Bld) [#/Vol]on RBC (Bld) [#/Vol] 4.75 10 6/uL 4.70-6.10 [facility] Serum or plasma albumin/glob ulin mass ratioon 10-02-2023 Albumin/Globulin [Mass ratio] 1.0 {ratio} [facility] Serum or plasma anion gap de terminationon 10-02-2023 Anion gap [Moles/Vol] 10.0 mmol/L [facility] Serum or plasma total choles terol/high density lipoprotein (HDL) cholesterol mass jacinto 10-02-2023 Cholesterol.total/Chantale sterol in HDL [Mass ratio] 3.1 {ratio} [facility] Comment on above: 3.3 - 4.4 LOW RISK4. 4 - 7.1 AVERAGE RISK7.1 - 11.0 MODERATE RISK>11.0 HIGH RISK PSA Screen, Totalon 07-07-19 24 Prostate specific Ag [Mass/Vol] 0.2 ng/mL Normal 0.1-3.5 [facility] Comment on above: Result Comment: The concentration of PSA determined by different manufacturers can vary due to differences in assay methods and reagent specificity. Values obtained from different assay methods cannot be used interchangeably. The methodology used for this result was chemiluminescence using [employer] PSA reagent. Performed By: #### 1 [id number] #### [facility] [address] [place] [address] Ambulatory Visit Summaryon 0 07-06-2023 Ambulatory Visit Summary JOSH GIL :1975 Visit Date:07/06/2023 Ambulatory Visit Instructions Your Diagnosis BPH with urinary obstruction Nocturia Prostate cancer screening Low energy Your Care Team Attending Physician - LILIA [...] Follow-Up Appointments Thursday 3:15 PM EDT With: LILIA CARDOZA, Carlos Villanueva Where: [facility] Patient Educationon 07-06-19 Patient Education Urology Benign Prostatic Hyperplasia Benign [...] Follow these instructions at home: ? Take mkeb-ila-povoual and prescription medicines only as told by [...] the medicine (more content not included)... Normal [facility] Urology Office/Clinic Noteon 07-06-2023 Urology Office/Clinic Note [...] Other fatigue) Testosterone level 10/09/2019 - 419 (640 [phone]). Has good energy levels. Was recently started on escitalopram per PCP. Feels this improved stress/anxiety despite SE of sweating. Follow-up With When Contact Information LILIA CARDOZA, Carlos Villanueva, URL [facility] [address] , [place] [address]- [phone] Additional Instructions: 1 yr (no labs) Patient Education Benign Prostatic Hyperplasia I, Irena Cisneros, personally scribed for Dr. Sorto on 07/06/2023 16:41:03. . Documentation recorded by the albaibe, Irena Cisneros, accurately reflects the services(s) I [...] Negative (0 (more content not included)... Normal [facility] Comment on above: Result Comment: Elec tronically Signed By: Carlos SORTO MD\.br\Date and Time Signed: 07/06/23 16:43 EDT\.br\Electronically Co-Signed By: Irena Cisneros.br\Date and Time Co-Signed: 07/06/23 16:41 EDT No Panel Informationon 05-14 Destruction method: cryotherapy [facility] Quick Strepon 05-09-2023 S. pyogenes Org specific cx Ql (Throat) Negative [facility] [employer] Other Quick Strep [facility] [employer] Other Alanine aminotransferase [En zymatic activity/volume] in Serum or PlasmaOrdered By: Carlos Padilla on 03-27-2023 ALT [Catalytic activity/Vol] 14 U/L 7-52 [facility] Albumin [Mass/volume] in Ser um or Plasma by Bromocresol green (BCG) dye binding methoOrdered By: Carlos Padilla on 03-27-2023 Albumin BCG dye [Mass/Vol] 4.4 g/dL 3.5-5.7 [facility] Alkaline phosphatase [Enzyma tic activity/volume] in Serum or PlasmaOrdered By: Carlos Padilla on 03-27-2023 ALP [Catalytic activity/Vol] 98 U/L 34-104 [facility] Aspartate aminotransferase [ Enzymatic activity/volume] in Serum or PlasmaOrdered By: Carlos Padilla on 03-27-2023 AST [Catalytic activity/Vol] 17 U/L 13-39 [facility] Basophils Auto (Bld) [#/Vol] Ordered By: Carlos Padilla on 03-27-2023 Basophils (Bld) [#/Vol] 0.1 10*3/uL 0.0-0.2 [facility] Basophils/100 WBC Auto (Bld) Ordered By: Carlos Padilla on 03-27-2023 Basophils/100 WBC (Bld) 0.7 % . [facility] Bilirubin.total [Mass/volume ] in Serum or PlasmaOrdered By: Carlos Padilla on 03-27-2023 Bilirubin [Mass/Vol] 0.3 mg/dL 0.3-1.0 [facility] COVID CepheidOrdered By: Paola Padilla on 03-27-2023 SARS-CoV-2 (COVID-19) Ab IA Ql Negative Negative [facility] Comment on above: This is a duplicate Cepheid Xpert Xpress CoV-2/Flu/RSV Plus RNA by RT-PCR result to be used for statistical tracking purpose only. SARS-CoV-2 (COVID-19) RNA MEHRAN+probe Ql (Unsp spec) [facility] COVID-19 / Flu A/B / RSV [...] or Cepheid Disclaimer revoked sooner. PERFORMED BY: [place] [address] PATHOLOGIST METALLURGICAL INSPECTOR NATY FORTE M.D. Normal [facility] Comment on above: Performed By: #### C OVID19 FLU RSV, CEPHEID NEG #### [facility] [address] [place] [id number] [place] Calcium [Mass/volume] in Ser um or PlasmaOrdered By: Carlos Padilla on 03-27-2023 Calcium [Mass/Vol] 9.3 mg/dL 8.6-10.3 [facility] Carbon dioxide, total [Moles /volume] in Serum or PlasmaOrdered By: Carlos Padilla on 03-27-2023 CO2 [Moles/Vol] 28.7 mmol/L 21.0-31.0 [facility] Cepheid COVID PCR Negativeon 03-27-2023 SARS-CoV-2 (COVID-19) RNA MEHRAN+probe Ql (Unsp spec) Negative Normal Negative [facility] Comment on above: Result Comment: This is a duplicate Cepheid Xpert Xpress CoV-2/Flu/RSV Plus RNA by RT-PCR result to be used for statistical tracking purpose only. PERFORMED BY: [place] [address] PATHOLOGIST METALLURGICAL INSPECTOR NATY FORTE M.D. Performed By: #### C OVID19 FLU RSV, CEPHEID NEG #### [facility] [address] [place] [id number] [place] Chloride [Moles/volume] in S manav or PlasmaOrdered By: Carlos Padilla on 03-27-2023 Chloride [Moles/Vol] 105 mmol/L 98-107 [facility] Complete Blood Count Auto Di ffon 03-27-2023 Basophils (Bld) [#/Vol] 0.1 10*3/uL Normal 0.0-0.2 [facility] Comment on above: Result Comment: PERF ORMED BY: [place] [address] PATHOLOGIST METALLURGICAL INSPECTOR NATY FORTE M.D. Performed By: #### C MP, CBC #### [facility] [address] [place] [address] [place] Basophils/100 WBC (Bld) 0.7 % Normal . [facility] Comment on above: Performed By: #### C MP, CBC #### [facility] [address] [place] [address] [place] Eosinophils (Bld) [#/Vol] 0.2 10*3/uL Normal 0.0-0.45 [facility] Comment on above: Performed By: #### C MP, CBC #### [place] [address] [place] Eosinophils/100 WBC (Bld) 2.0 % Normal . [facility] Comment on above: Performed By: #### C MP, CBC #### [facility] [address] [place] [address] [place] Erythrocyte distribution width (RBC) [Ratio] 13.2 % Normal 12.0-14.8 [facility] Comment on above: Performed By: #### C MP, CBC #### [facility] [address] [place] [address] Hematocrit (Bld) [Volume fraction] 41.9 % Normal 38.8-50.0 [facility] Comment on above: Performed By: #### C MP, CBC #### [facility] [address] [place] [address] [place] Hemoglobin (Bld) [Mass/Vol] 14.2 g/dL Normal 13.0-17.0 [facility] Comment on above: Performed By: #### C MP, CBC #### [facility] [address] [place] [address] [place] Lymphocytes (Bld) [#/Vol] 2.6 10*3/uL Normal 1.00-4.8 [facility] Comment on above: Performed By: #### C MP, CBC #### [facility] [address] Lymphocytes/100 WBC (Bld) 34.2 % Normal . [facility] Comment on above: Performed By: #### C MP, CBC #### [facility] [address] MCH (RBC) [Entitic mass] 30.5 pg Normal 27.5-35.2 [facility] Comment on above: Performed By: #### C MP, CBC #### [facility] [address] MCV (RBC) [Entitic vol] 89.8 fL Normal 83.5-101 [facility] Comment on above: Performed By: #### C MP, CBC #### [address] Mean Corpuscular HGB Conc 34.0 g/dL Normal 32.5-35.6 [facility] Comment on above: Performed By: #### C MP, CBC #### [place] [address] [place] Monocytes (Bld) [#/Vol] 0.6 10*3/uL Normal 0.0-0.8 [facility] Comment on above: Performed By: #### C MP, CBC #### [address] Monocytes/100 WBC (Bld) 17.61 % Normal 0.00-20.00 [facility] Comment on above: Performed By: #### C MP, CBC #### [place] [address] [place] Monocytes/100 WBC (Bld) 8.4 % Normal . [facility] Comment on above: Performed By: #### C MP, CBC #### [address] Neutrophils (Bld) [#/Vol] 4.1 10*3/uL Normal 1.8-7.7 [facility] Comment on above: Performed By: #### C MP, CBC #### [address] Neutrophils/100 WBC (Bld) 54.7 % Normal . [facility] Comment on above: Performed By: #### C MP, CBC #### [facility] [address] NRBC% 0.1 /100{WBC} Normal 0-0.5 [facility] Comment on above: Performed By: #### C MP, CBC #### [facility] [address] Platelet mean volume (Bld) [Entitic vol] 8.3 fL Normal 6.6-10.1 [facility] Comment on above: Performed By: #### C MP, CBC #### [address] Platelets (Bld) [#/Vol] 367 10*3/uL Normal 150-450 [facility] Comment on above: Performed By: #### C MP, CBC #### [address] RBC (Bld) [#/Vol] 4.67 10*6/uL Normal 3.90-5.60 [facility] Comment on above: Performed By: #### C MP, CBC #### [address] WBC (Bld) [#/Vol] 7.6 10*3/uL Normal 4.1-10.5 [facility] Comment on above: Performed By: #### C MP, CBC #### [address] Comprehensive Metabolic Pane lavon 03-27-2023 Albumin [Mass/Vol] 4.4 g/dL Normal 3.5-5.7 [facility] Comment on above: Performed By: #### C MP, CBC #### [address] Albumin/Globulin [Mass ratio] 1.5 {ratio} Normal [facility] Comment on above: Performed By: #### C MP, CBC #### [facility] [address] [place] [id number] [facility] ALP [Catalytic activity/Vol] 98 U/L Normal 34-104 [facility] Comment on above: Performed By: #### C MP, CBC #### [facility] [address] ALT [Catalytic activity/Vol] 14 U/L Normal 7-52 [facility] Comment on above: Performed By: #### C MP, CBC #### [facility] [address] Anion gap [Moles/Vol] 10.1 mmol/L Normal 6.0-15.0 [facility] Comment on above: Performed By: #### C MP, CBC #### [address] AST [Catalytic activity/Vol] 17 U/L Normal 13-39 [facility] Comment on above: Performed By: #### C MP, CBC #### [address] Bilirubin [Mass/Vol] 0.3 mg/dL Normal 0.3-1.0 [facility] Comment on above: Performed By: #### C MP, CBC #### [address] Calcium [Mass/Vol] 9.3 mg/dL Normal 8.6-10.3 [facility] Comment on above: Performed By: #### C MP, CBC #### [facility] [address] [place] [address] [place] Chloride [Moles/Vol] 105 mmol/L Normal 98-107 [facility] Comment on above: Performed By: #### C MP, CBC #### [facility] [address] CO2 [Moles/Vol] 28.7 mmol/L Normal 21.0-31.0 [facility] Comment on above: Performed By: #### C MP, CBC #### [facility] [address] [place] [address] Creatinine [Mass/Vol] 0.94 mg/dL Normal 0.70-1.30 [facility] Comment on above: Performed By: #### C MP, CBC #### [address] Creatinine Clr Calc Pharmacy 123.73 Normal [facility] Comment on above: Result Comment: PERF ORMED BY: [place] [address] PATHOLOGIST METALLURGICAL INSPECTOR NATY FORTE M.D. Performed By: #### C MP, CBC #### [address] GFR/1.73 sq M.predicted MDRD (S/P/Bld) [Vol rate/Area] mL/min/{1.73_m2} Normal [facility] Comment on above: Performed By: #### C MP, CBC #### [address] Globulin (S) [Mass/Vol] 2.9 g/dL Normal [facility] Comment on above: Performed By: #### C MP, CBC #### [address] Glucose [Mass/Vol] 94 mg/dL Normal 70-100 [facility] Comment on above: Result Comment: [place] Glucose Reference Range is dependent on time and content of last meal. Glucose of more than 200 mg/dL in a nonstressed, ambulatory subject supports the diagnosis of Diabetes Mellitus. ADA recommended reference range Performed By: #### C MP, CBC #### [address] Potassium [Moles/Vol] 3.8 mmol/L Normal 3.5-5.1 [facility] Comment on above: Performed By: #### C MP, CBC #### [address] Protein [Mass/Vol] 7.3 g/dL Normal 6.4-8.9 [facility] Comment on above: Performed By: #### C MP, CBC #### [facility] [address] [place] [address] [place] Sodium [Moles/Vol] 140 mmol/L Normal 136-145 [facility] Comment on above: Performed By: #### C MP, CBC #### [facility] [address] [place] [id number] [place] Urea nitrogen [Mass/Vol] 16 mg/dL Normal 7-25 [facility] Comment on above: Performed By: #### C MP, CBC #### [facility] [address] [place] [address] [place] Creatinine [Mass/volume] in Serum or PlasmaOrdered By: Carlos Padilla on 03-27-2023 Creatinine [Mass/Vol] 0.94 mg/dL 0.70-1.30 [facility] ECG 12 lead ECGon 03-27-2023 ECG 12 lead ECG [facility] [place] [address] [place] [address] Electrocardiograph Report Signed Patient: Josh Gil MR#: [id number] : 1975 Acct:[id number] Age/Sex: 47 / M ADM Date: 03/27/23 Loc: ER Room: Type: [facility] ER Attending Dr: Ordering Provider: Carlos [...] By: MUS Signed By Carlos Padilla DO [address] [facility] Eosinophils Auto (Bld) [#/Vo l]Ordered By: Carlos Padilla on 03-27-2023 Eosinophils (Bld) [#/Vol] 0.2 10*3/uL 0.0-0.45 [facility] Eosinophils/100 WBC Auto (Bl d)Ordered By: Carlos Padilla on 03-27-2023 Eosinophils/100 WBC (Bld) 2.0 % . [facility] Erythrocyte distribution wid th Auto (RBC) [Ratio]Ordered By: Carlos Padilla on 03-27-2023 Erythrocyte distribution width (RBC) [Ratio] 13.2 % 12.0-14.8 [facility] Globulin Calc (S) [Mass/Vol] Ordered By: Carlos Padilla on 03-27-2023 Globulin (S) [Mass/Vol] 2.9 g/dL [facility] Glucose [Mass/volume] in Ser um or PlasmaOrdered By: Carlos Padilla on 03-27-2023 Glucose [Mass/Vol] 94 mg/dL 70-100 [facility] Comment on above: ADA recommended refe rence rangeRandom Glucose Reference Range is dependent on time and content of last meal. Glucose of more than 200 mg/dL in a nonstressed, ambulatory subject supports the diagnosis of Diabetes Mellitus. Hematocrit Auto (Bld) [Volum e fraction]Ordered By: Carlos Padilla on 03-27-2023 Hematocrit (Bld) [Volume fraction] 41.9 % 38.8-50.0 [facility] Hemoglobin [Mass/volume] in BloodOrdered By: Carlos Padilla on 03-27-2023 Hemoglobin (Bld) [Mass/Vol] 14.2 g/dL 13.0-17.0 [facility] Leukocytes [#/volume] correc belinda for nucleated erythrocytes in Blood by Automated counOrdered By: Carlos Padilla on 03-27-2023 WBC corrected for nucl RBC Auto (Bld) [#/Vol] 7.6 10*3/uL 4.1-10.5 [facility] Lymphocytes Auto (Bld) [#/Vo l]Ordered By: Carlos Padilla on 03-27-2023 Lymphocytes (Bld) [#/Vol] 2.6 10*3/uL 1.00-4.8 [facility] Lymphocytes/100 WBC Auto (Bl d)Ordered By: Carlos Padilla on 03-27-2023 Lymphocytes/100 WBC (Bld) 34.2 % . [facility] MCH Auto (RBC) [Entitic mass ]Ordered By: Carlos Padilla on 03-27-2023 MCH (RBC) [Entitic mass] 30.5 pg 27.5-35.2 [facility] MCHC Auto (RBC) [Mass/Vol]Or dered By: Carlos Padilla on 03-27-2023 MCHC (RBC) [Mass/Vol] 34.0 g/dL 32.5-35.6 [facility] MCV Auto (RBC) [Entitic vol] Ordered By: Carlos Padilla on 03-27-2023 MCV (RBC) [Entitic vol] 89.8 fL 83.5-101 [facility] Monocyte distribution width [Entitic volume] in Blood by AutomatedOrdered By: Carlos Padilla on 03-27-2023 Monocyte distribution width Auto (Bld) [Entitic vol] 17.61 % 0.00-20.00 [facility] Monocytes Auto (Bld) [#/Vol] Ordered By: Carlos Padilla on 03-27-2023 Monocytes (Bld) [#/Vol] 0.6 10*3/uL 0.0-0.8 [facility] Monocytes/100 WBC Auto (Bld) Ordered By: Carlos Padilla on 03-27-2023 Monocytes/100 WBC (Bld) 8.4 % . [facility] Neutrophils Auto (Bld) [#/Vo l]Ordered By: Carlos Padilla on 03-27-2023 Neutrophils (Bld) [#/Vol] 4.1 10*3/uL 1.8-7.7 [facility] Neutrophils/100 WBC Auto (Bl d)Ordered By: Carlos Padilla on 03-27-2023 Neutrophils/100 WBC (Bld) 54.7 % . [facility] No Panel InformationOrdered By: Carlos Padilla on 03-27-2023 Estimated GFR (CKD-EPI) > 60.0 mL/Min [facility] Creatinine Clearance (Chem 123.73 [facility] Nucleated erythrocytes [Pres ence] in Blood by Automated countOrdered By: Carlos Padilla on 03-27-2023 Nucleated RBC Auto Ql (Bld) 0.1 /100{WBC} 0-0.5 [facility] Platelet mean volume Auto (B ld) [Entitic vol]Ordered By: Carlos Padilla on 03-27-2023 Platelet mean volume (Bld) [Entitic vol] 8.3 fL 6.6-10.1 [facility] Platelets Auto (Bld) [#/Vol] Ordered By: Carlos Padilla on 03-27-2023 Platelets (Bld) [#/Vol] 367 10*3/uL 150-450 [facility] Potassium [Moles/volume] in Serum or PlasmaOrdered By: Carlos Padilla on 03-27-2023 Potassium [Moles/Vol] 3.8 mmol/L 3.5-5.1 [facility] Protein [Mass/volume] in Ser um or PlasmaOrdered By: Carlos Padilla on 03-27-2023 Protein [Mass/Vol] 7.3 g/dL 6.4-8.9 [facility] RBC Auto (Bld) [#/Vol]Ordere d By: Carlos Padilla on 03-27-2023 RBC (Bld) [#/Vol] 4.67 10*6/uL 3.90-5.60 [facility] Serum or plasma albumin/glob ulin mass ratioOrdered By: Carlos Padilla on 03-27-2023 Albumin/Globulin [Mass ratio] 1.5 {ratio} [facility] Serum or plasma anion gap de terminationOrdered By: Carlos Padilla on 03-27-2023 Anion gap [Moles/Vol] 10.1 mmol/L 6.0-15.0 [facility] Sodium [Moles/volume] in Ser um or PlasmaOrdered By: Carlos Padilla on 03-27-2023 Sodium [Moles/Vol] 140 mmol/L 136-145 [facility] Urea nitrogen [Mass/volume] in Serum or PlasmaOrdered By: Carlos Padilla on 03-27-2023 Urea nitrogen [Mass/Vol] 16 mg/dL 7-25 [facility] WBC Auto (Bld) [#/Vol]Ordere d By: Carlos Randy on 03-27-2023 WBC (Bld) [#/Vol] 7.6 10*3/uL 4.1-10.5 [facility] Ambulatory Visit Summaryon 1 Ambulatory Visit Summary JOSH GIL :1975 Visit Date:01/19/2023 Ambulatory Visit Instructions Your Diagnosis BPH with urinary obstruction Nocturia Low energy Prostate cancer screening ED (erectile dysfunction) Tests Performed Urnls Dip Stick Auto w/o Microscopy POC 00993 Your Care Team Attending Physician - Carlos [...] Follow-Up Appointments Thursday 8:45 AM EDT With: LILIA CARDOZA, Carlos Villanueva Where: [facility] Patient Educationon 01-20-20 Patient Education Urology [...] Follow these instructions at home: ? Take hyqj-exd-untxlij and prescription medicines only as told by [...] the medicine (more content not included)... Normal [facility] Urology Office/Clinic Noteon 01-19-2023 Urology Office/Clinic Note [...] level drawn on 10/09/2019 - [phone] ([phone]). Pt states that his energy has improved. 4. Prostate cancer screening (Z12.5: Encounter for screening for malignant neoplasm of prostate) PSA 02/21/22 - 0.26 Follow-up With When Contact Information LILIA CARDOZA, Carlos Villanueva, URL In 6 months [facility] [address], [place] [address]- Additional Instructions: Patient Education Benign Prostatic Hyperplasia [...] Known All (more content not included)... Normal [facility] Comment on above: Result Comment: Elec tronically Signed By: Carlos SORTO MD\.br\Date and Time Signed: 01/19/23 16:44 EDT\.br\Electronically Co-Signed By: Emily aWlker\.br\Date and Time Co-Signed: 01/19/23 16:43 EDT Consultation Noteon 07-23-19 Consultation Note [id number] Normal [facility] US SCROTUMon 02-04-2022 US SCROTUM EXAMINATION: US [...] by: RALPH KHAN Date: 2022-02-04 13:36 Normal [facility] CBC AUTO DIFFon 06-27-2021 BASO # 0.0 103/ul Normal 0.0-0.1 [facility] Comment on above: Performed By: #### C BC #### [facility] [address] [address] [address] Maritza Lopez Basophils/100 WBC (Bld) 0.6 % Normal 0.2-2.0 [facility] Comment on above: Performed By: #### C BC #### [facility] [address] [place] [address] Dr. Marizta Lopez EO # 0.2 103/ul Normal 0.0-0.7 [facility] Comment on above: Performed By: #### C BC #### [facility] [address] [place] [address] Dr. Maritza Lopez Eosinophils/100 WBC (Bld) 2.9 % Normal 0.9-7.0 [facility] Comment on above: Performed By: #### C BC #### [facility] [address] [place] [address] Dr. Maritza Lopez Erythrocyte distribution width (RBC) [Ratio] 13.2 % Normal 11.0-15.0 [facility] Comment on above: Performed By: #### C BC #### [facility] [address] [place] [address] Dr. Maritza Lopez Hematocrit (Bld) [Volume fraction] 43.1 % Normal 42.0-54.0 [facility] Comment on above: Performed By: #### C BC #### [facility] [address] [place] [address] Dr. Maritza Lopez Hemoglobin (Bld) [Mass/Vol] 14.2 g/dL Normal 14.0-18.0 [facility] Comment on above: Performed By: #### C BC #### [facility] [address] [place] [address] Dr. Maritza Lopez IG # 0.01 10e3/ul Normal 0.00-0.03 [facility] Comment on above: Performed By: #### C BC #### [facility] [address] [place] [address] Dr. Maritza Lopez IG % 0.2 % Normal 0.0-0.5 [facility] Comment on above: Performed By: #### C BC #### [facility] [address] [place] [address] Dr. Maritza Lopez LYMPH # 2.0 103/ul Normal 1.2-3.8 [facility] Comment on above: Performed By: #### C BC #### [facility] [address] [address] [address] Maritza Lopez Lymphocytes/100 WBC (Bld) 30.3 % Normal 20.5-60.0 [facility] Comment on above: Performed By: #### C BC #### [facility] [address] [place] [address] Dr. Maritza Lopez MANUAL DIFF REQ NO Normal [facility] Comment on above: Performed By: #### C BC #### [facility] [address] [place] [address] Dr. Maritza Lopez MCH (RBC) [Entitic mass] 30.0 pg Normal 25.9-34.0 [facility] Comment on above: Performed By: #### C BC #### [facility] [address] [place] [address] Dr. Maritza Lopez MCHC (RBC) [Mass/Vol] 32.9 g/dL Normal 29.9-35.2 [facility] Comment on above: Performed By: #### C BC #### [facility] [address] [place] [address] Dr. Maritza Lopez MCV (RBC) [Entitic vol] 91.1 fL Normal 80.0-94.0 [facility] Comment on above: Performed By: #### C BC #### [facility] [address] [place] [address] Dr. Maritza Lopez MONO # 0.8 103/ul Normal 0.3-0.8 [facility] Comment on above: Performed By: #### C BC #### [facility] [address] [place] [address] Dr. Maritza Lopez Monocytes/100 WBC (Bld) 11.6 % Normal 1.7-12.0 [facility] Comment on above: Performed By: #### C BC #### [facility] [address] [place] [address] Dr. Maritza Lopez NEUT # 3.6 103/ul Normal 1.4-6.5 [facility] Comment on above: Performed By: #### C BC #### [facility] [address] [address] [address] Maritza Lopez Neutrophils/100 WBC (Bld) 54.4 % Normal 43.0-75.0 [facility] Comment on above: Performed By: #### C BC #### [facility] [address] [address] [address] Maritza Lopez Platelet mean volume (Bld) [Entitic vol] 10.2 fL Normal 9.5-13.5 [facility] Comment on above: Performed By: #### C BC #### [facility] [address] [address] [address] Maritza Lopez PLT 378 103/ul Normal 150-450 [facility] Comment on above: Performed By: #### C BC #### [facility] [address] [place] [address] Dr. Maritza Lopez RBC 4.73 106/ul Normal 4.70-6.10 [facility] Comment on above: Performed By: #### C BC #### [facility] [address] [place] [address] Dr. Maritza Lopez WBC 6.6 103/ul Normal 4.0-11.0 [facility] Comment on above: Performed By: #### C BC #### [facility] [address] [place] [address] Dr. Maritza Lopez LIPID PROFILEon 06-27-2021 CHOL-HDL RATIO NORM SEE BELOW Normal [facility] Comment on above: Result Comment: 3.3 - 4.4 LOW RISK 4.4 - 7.1 AVERAGE RISK 7.1 - 11.0 MODERATE RISK >11.0 HIGH RISK Performed By: #### L IPID, CMP #### [facility] [address] [address] [address] Maritza Lopez Cholesterol [Mass/Vol] 164 mg/dL Normal <=200 [facility] Comment on above: Performed By: #### L IPID, CMP #### [facility] [address] [place] [address] Dr. Maritza Lopez Cholesterol in HDL [Mass/Vol] 55 mg/dL Normal 40-60 [facility] Comment on above: Performed By: #### L IPID, CMP #### [facility] [address] [address] [address] Maritza Lopez Cholesterol in LDL [Mass/Vol] 90.8 mg/dL Normal [facility] Comment on above: Performed By: #### L IPID, CMP #### [facility] [address] [address] [address] Maritza Lopez Cholesterol.total/Chantale sterol in HDL [Mass ratio] 3.0 {ratio} Normal [facility] Comment on above: Performed By: #### L IPID, CMP #### [facility] [address] [address] [address] Maritza Lopez HDL NORMAL > or = 60 mg/dl - LO W CARDIOVASCULAR RISK <40 mg/dl - HIGH CARDIOVASCULAR RISK Normal [facility] Comment on above: Performed By: #### L IPID, CMP #### [facility] [address] [place] [address] Dr. Maritza Lopez LDL CALC NORMAL SEE BELOW Normal [facility] Comment on above: Result Comment: <100 mg/dl OPTIMAL 100 - 129 mg/dl NEAR OR ABOVE OPTIMAL 130 - 159 mg/dl BORDERLINE HIGH 160 - 189 mg/dl HIGH >190 mg/dl VERY HIGH Performed By: #### L IPID, CMP #### [facility] [address] [address] [address] Maritza Lopez Triglyceride [Mass/Vol] 91 mg/dL Normal <=150 T [facility] Comment on above: Performed By: #### L IPID, CMP #### [facility] [address] [place] [address] Dr. Maritza Lopez VLDL CALC 18.2 mg/dL Normal [facility] Comment on above: Performed By: #### L IPID, CMP #### [facility] [address] [place] [address] Dr. Maritza Lopez PROF 14(COMP METB)on 022 Albumin [Mass/Vol] 3.8 g/dL Normal 3.4-5.0 [facility] Comment on above: Performed By: #### L IPID, CMP #### [facility] [address] [address] [address] Maritza Lopez Albumin/Globulin [Mass ratio] 1.2 {ratio} Normal [facility] Comment on above: Performed By: #### L IPID, CMP #### [facility] [address] [address] [address] Maritza Lopez ALP [Catalytic activity/Vol] 100 U/L Normal 46-116 [facility] Comment on above: Performed By: #### L IPID, CMP #### [facility] [address] [address] [address] Maritza Lopez ALT [Catalytic activity/Vol] 26 U/L Normal 16-63 [facility] Comment on above: Performed By: #### L IPID, CMP #### [facility] [address] [address] [address] Maritza Lopez Anion gap [Moles/Vol] 11.5 mmol/L Normal [facility] Comment on above: Performed By: #### L IPID, CMP #### [facility] [address] [address] [address] Maritza Lopez AST [Catalytic activity/Vol] 14 U/L Critically low 15-37 [facility] Comment on above: Performed By: #### L IPID, CMP #### [facility] [address] [address] [address] Maritza Lopez Bilirubin [Mass/Vol] 0.4 mg/dL Normal 0.2-1.3 [facility] Comment on above: Performed By: #### L IPID, CMP #### [facility] [address] [address] [address] Maritza Lopez Calcium [Mass/Vol] 8.4 mg/dL Critically low 8.5-10.1 [facility] Comment on above: Performed By: #### L IPID, CMP #### [facility] [address] [address] [address] Maritza Lopez Chloride [Moles/Vol] 104 mmol/L Normal 98-107 [facility] Comment on above: Performed By: #### L IPID, CMP #### [facility] [address] [address] [address] Maritza Lopez CO2 [Moles/Vol] 30.6 mmol/L Critically high 22.0-30.0 [facility] Comment on above: Performed By: #### L IPID, CMP #### [facility] [address] [address] [address] Maritza Lopez Creatinine [Mass/Vol] 1.07 mg/dL Normal 0.66-1.25 [facility] Comment on above: Performed By: #### L IPID, CMP #### [facility] [address] [address] [address] Maritza Lopez EGFR-AF BURMESE >60 Normal >=60 [facility] Comment on above: Performed By: #### L IPID, CMP #### [facility] [address] [place] [address] Dr. Maritza Lopez EGFR-NON AF BURMESE >60 Normal >=60 [facility] Comment on above: Performed By: #### L IPID, CMP #### [facility] [address] [address] [address] Maritza Lopez Globulin (S) [Mass/Vol] 3.3 g/dL Normal [facility] Comment on above: Performed By: #### L IPID, CMP #### [facility] [address] [address] [address] Maritza Lopez Glucose [Mass/Vol] 110 mg/dL Critically high 74-106 [facility] Comment on above: Performed By: #### L IPID, CMP #### [facility] [address] [address] [address] Maritza Lopez Potassium [Moles/Vol] 4.1 mmol/L Normal 3.4-5.0 [facility] Comment on above: Performed By: #### L IPID, CMP #### [facility] [address] [address] [address] Maritza Lopez Protein [Mass/Vol] 7.1 g/dL Normal 6.1-8.2 [facility] Comment on above: Performed By: #### L IPID, CMP #### [facility] [address] [address] [address] Maritza Lopez Sodium [Moles/Vol] 142 mmol/L Normal 137-145 [facility] Comment on above: Performed By: #### L IPID, CMP #### [facility] [address] [address] [address] Maritza Lopez Urea nitrogen [Mass/Vol] 17.0 mg/dL Normal 7.0-18.0 [facility] Comment on above: Performed By: #### L IPID, CMP #### [facility] [address] [address] [address] Maritza Lopez Urea nitrogen/Creatinine [Mass ratio] 15.9 mg/mg Normal [facility] Comment on above: Performed By: #### L IPID, CMP #### [facility] [address] [address] [address] Maritza Lopez Vital Signs Date Time Vital Sign Value Performing Clinician Facility 04-23-2024 10:52-0500 Body height 180.34 cm [facility] 04-23-2024 10:52-0500 Body mass index (BMI) [Ratio] 34 kg/m2 [facility] 04-23-2024 10:52-0500 Body temperature 98.5 [degF] [facility] 04-23-2024 10:52-0500 Body weight 110.73 kg [facility] 04-23-2024 10:52-0500 Diastolic blood pressure 79 mm[Hg] [facility] 04-23-2024 10:52-0500 Heart rate 85 /min [facility] 04-23-2024 10:52-0500 Respiratory rate 18 /min [facility] 04-23-2024 10:52-0500 SaO2% (BldA) [Mass fraction] 95 % [facility] 04-23-2024 10:52-0500 Systolic blood pressure 137 mm[Hg] [facility] 04-19-2024 17:36-0500 Body height 180.34 cm [facility] 04-19-2024 17:36-0500 Body mass index (BMI) [Ratio] 33.6 kg/m2 [facility] 04-19-2024 17:36-0500 Body temperature 98.3 [degF] [facility] 04-19-2024 17:36-0500 Body weight 109.37 kg [facility] 04-19-2024 17:36-0500 Diastolic blood pressure 88 mm[Hg] [facility] 04-19-2024 17:36-0500 Heart rate 82 /min [facility] 04-19-2024 17:36-0500 Respiratory rate 16 /min [facility] 04-19-2024 17:36-0500 SaO2% (BldA) [Mass fraction] 98 % [facility] 04-19-2024 17:36-0500 Systolic blood pressure 140 mm[Hg] [facility] 03-25-2024 16:02-0500 Body height 180.34 cm [facility] 03-25-2024 16:02-0500 Body mass index (BMI) [Ratio] 33.5 kg/m2 [facility] 03-25-2024 16:02-0500 Body temperature 98.4 [degF] [facility] 03-25-2024 16:02-0500 Body weight 108.86 kg [facility] 03-25-2024 16:02-0500 Diastolic blood pressure 80 mm[Hg] [facility] 03-25-2024 16:02-0500 Heart rate 75 /min [facility] 03-25-2024 16:02-0500 Respiratory rate 18 /min [facility] 03-25-2024 16:02-0500 SaO2% (BldA) [Mass fraction] 97 % [facility] 03-25-2024 16:02-0500 Systolic blood pressure 147 mm[Hg] [facility] 09-14-2023 15:44-0400 Body height 180.34 cm [facility] 09-14-2023 15:44-0400 Body mass index (BMI) [Ratio] 33.1 kg/m2 [facility] 09-14-2023 15:44-0400 Body weight 107.72 kg [facility] 09-14-2023 15:44-0400 Diastolic blood pressure 88 mm[Hg] [facility] 09-14-2023 15:44-0400 Heart rate 63 /min [facility] 09-14-2023 15:44-0400 Respiratory rate 12 /min [facility] 09-14-2023 15:44-0400 Systolic blood pressure 145 mm[Hg] [facility] 07-06-2023 15:44-0400 Blood Pressure Location Carlos SORTO [facility] 07-06-2023 15:44-0400 Body temperature 98.42 [degF] Carlos SORTO [facility] 07-06-2023 15:44-0400 Diastolic blood pressure 84 mm[Hg] Carlos SORTO [facility] 07-06-2023 15:44-0400 Heart rate 70 /min Carlos SORTO [facility] 07-06-2023 15:44-0400 Respiratory rate 16 /min Carlos SORTO [facility] 07-06-2023 15:44-0400 Systolic blood pressure 135 mm[Hg] Carlos SORTO [facility] 06-16-2023 15:56-0400 Body height 180.34 cm [facility] 06-16-2023 15:56-0400 Body mass index (BMI) [Ratio] 33 kg/m2 [facility] 06-16-2023 15:56-0400 Body weight 107.5 kg [facility] 06-16-2023 15:56-0400 Diastolic blood pressure 87 mm[Hg] [facility] 06-16-2023 15:56-0400 Heart rate 68 /min [facility] 06-16-2023 15:56-0400 Systolic blood pressure 135 mm[Hg] [facility] 05-22-2023 17:53-0500 Body height 181.61 cm DO Jaren Ball Work Phone: [facility] 05-22-2023 17:53-0500 Body mass index (BMI) [Ratio] 32.5 kg/m2 DO Jaren Ball Work Phone: [facility] 05-22-2023 17:53-0500 Body temperature 98.9 [degF] DO Jaren Ball Work Phone: [facility] 05-22-2023 17:53-0500 Body weight 107.5 kg DO Jaren Ball Work Phone: [facility] 05-22-2023 17:53-0500 Diastolic blood pressure 85 mm[Hg] DO Jaren Ball Work Phone: [facility] 05-22-2023 17:53-0500 Heart rate 75 /min DO Jaren Ball Work Phone: [facility] 05-22-2023 17:53-0500 Respiratory rate 18 /min DO Jaren Ball Work Phone: [facility] 05-22-2023 17:53-0500 SaO2% (BldA) [Mass fraction] 96 % DO Jaren Ball Work Phone: [facility] 05-22-2023 17:53-0500 Systolic blood pressure 135 mm[Hg] DO Jaren Ball Work Phone: [facility] 05-09-2023 13:45-0500 Body height 181.61 cm Nola Segura Other [facility] 05-09-2023 13:45-0500 Body mass index (BMI) [Ratio] 32.45 kg/m2 Nola Segura Other [employer] Other 05-09-2023 13:45-0500 Body temperature 98.4 [degF] Nola Segura Other [employer] Other 05-09-2023 13:45-0500 Body weight 107.05 kg Nola Segura Other [employer] Other 05-09-2023 13:45-0500 Body weight 107.04 kg DO Jaren Ball Work Phone: [facility] 05-09-2023 13:45-0500 Respiratory rate 16 /min Nola Segura Other [facility] [employer] Other 05-09-2023 13:45-0500 SaO2% (BldA) [Mass fraction] 97 % Nola Segura Other [facility] [employer] Other 04-15-2023 15:00-0500 Body height 181.61 cm Jaren Ball Other [facility] 04-15-2023 15:00-0500 Body mass index (BMI) [Ratio] 33.31 kg/m2 Jaren Ball Other [facility] [employer] Other 04-15-2023 15:00-0500 Body weight 109.86 kg Jaren Ball Other [facility] 04-15-2023 15:00-0500 Diastolic blood pressure 86 mm[Hg] Jaren Ball Other [facility] 04-15-2023 15:00-0500 Respiratory rate 12 /min Jaren Ball Other [facility] [employer] Other 04-15-2023 15:00-0500 Systolic blood pressure 135 mm[Hg] Jaren Ball Other [facility] 03-27-2023 18:42-0500 Diastolic blood pressure 87 mm[Hg] DO Jaren Ball Work Phone: [facility] 03-27-2023 18:42-0500 Heart rate 60 /min DO Jaren Ball Work Phone: [facility] 03-27-2023 18:42-0500 Respiratory rate 17 /min DO Jaren Ball Work Phone: [facility] 03-27-2023 18:42-0500 SaO2% (BldA) [Mass fraction] 98 % DO Jaren Ball Work Phone: [facility] 03-27-2023 18:42-0500 Systolic blood pressure 151 mm[Hg] DO Jaren Ball Work Phone: [facility] 03-27-2023 14:28-0500 Body height 182.88 cm DO Jaren Ball Work Phone: [facility] 03-27-2023 14:28-0500 Body temperature 98 [degF] DO Jaren Ball Work Phone: [facility] 03-27-2023 14:28-0500 Body weight 108.7 kg DO Jaren Ball Work Phone: [facility] 01-19-2023 15:55-0400 Blood Pressure Location Carlosyao SORTO [facility] 01-19-2023 15:55-0400 Diastolic blood pressure 69 mm[Hg] Carlos SORTO [facility] 01-19-2023 15:55-0400 Heart rate 80 /min Carlos SORTO [facility] 01-19-2023 15:55-0400 Respiratory rate 16 /min Carlos SORTO [facility] 01-19-2023 15:55-0400 Systolic blood pressure 138 mm[Hg] Carlos SORTO [facility] 09-08-2022 15:00-0400 Body height 181.61 cm Jaren Ball Other [employer] Other 09-08-2022 15:00-0400 Body mass index (BMI) [Ratio] 32.37 kg/m2 Jaren Ball Other [employer] Other 09-08-2022 15:00-0400 Body weight 106.78 kg Jaren Ball Other [employer] Other 09-08-2022 15:00-0400 Diastolic blood pressure 89 mm[Hg] Jaren [employer] Other [employer] Other 09-08-2022 15:00-0400 Respiratory rate 12 /min Jaren [employer] Other [employer] Other 09-08-2022 15:00-0400 Systolic blood pressure 139 mm[Hg] Jaren [employer] Other [employer] Other 03-04-2022 15:05-0500 Blood Pressure Location [facility] [place] 03-04-2022 15:05-0500 Diastolic blood pressure 94 mm[Hg] [facility] [place] 03-04-2022 15:05-0500 Heart rate 82 /min [facility] [place] 03-04-2022 15:05-0500 Respiratory rate 16 /min [facility] [place] 03-04-2022 15:05-0500 Systolic blood pressure 144 mm[Hg] [facility] [place] Encounters Encounter Date Encounter Type Care Provider Facility Start: 07-11-2024 ambulatory Carlos Edmondson ty:MICHELET Randhawa Start: 04-23-2024 End: 04-23-2024 ambulatory [facility] Work Phone: Start: 04-23-2024 End: 04-23-2024 Patient encounter procedure [facility] Work Phone: Start: 04-19-2024 End: 04-19-2024 ambulatory [facility] Work Phone: Start: 04-19-2024 End: 04-19-2024 Patient encounter procedure [facility] Work Phone: Start: 03-25-2024 End: 03-25-2024 Patient encounter procedure [facility] Work Phone: Start: 03-08-2024 End: 03-08-2024 Office outpatient visit 15 minutes Radha A Felter PHYSICAL THERAPY MANAGER-ENVIRONMENTAL COMPLIANCE ENGINEER Work Phone: [facility] Comment on above: Inflamed seborrheic keratosis; Lentigines; Melanocytic nevus of trunk Start: 03-08-2024 End: 03-08-2024 ambulatory RADHA A FELTER Not Available Start: 03-08-2024 End: 03-08-2024 Bamboo flowsheet Radha A Felter PHYSICAL THERAPY MANAGER-ENVIRONMENTAL COMPLIANCE ENGINEER Work Phone: [facility] Start: 03-08-2024 End: 03-08-2024 Bamboo flowsheet Radha A Felter PHYSICAL THERAPY MANAGER-ENVIRONMENTAL COMPLIANCE ENGINEER Work Phone: [facility] Start: 10-27-2023 End: 10-27-2023 ambulatory [facility] Work Phone: Start: 10-27-2023 End: 10-27-2023 Patient encounter procedure [facility] Work Phone: Start: 10-02-2023 Non-patient / Non-visit [facility] Work Phone: Start: 09-14-2023 End: 09-14-2023 ambulatory [facility] Work Phone: Start: 09-14-2023 End: 09-14-2023 Encounter for general adult medical examination without abnormal findings [facility] Start: 09-14-2023 End: 09-14-2023 Patient encounter procedure [facility] Work Phone: Start: 07-06-2023 End: 07-07-2023 ambulatory Carlos SORTO Facility[place] Start: 07-06-2023 End: 07-07-2023 ambulatory Carlos SORTO Facility:[facility] Start: 07-06-2023 End: 07-06-2023 Lab Drop off Carlos R SORTO [facility] Start: 07-06-2023 End: 07-06-2023 Patient encounter procedure Carlos R LILIA [facility] Start: 06-16-2023 End: 06-16-2023 Patient encounter procedure [facility] Work Phone: Start: 05-22-2023 End: 05-22-2023 ambulatory DO Jaren Price Work Phone: [facility] Work Phone: Start: 05-22-2023 End: 05-22-2023 Patient encounter procedure DO Jaren Price Work Phone: [facility] Work Phone: Start: 05-14-2023 End: 05-14-2023 Patient encounter procedure Radha A Felter PHYSICAL THERAPY MANAGER-ENVIRONMENTAL COMPLIANCE ENGINEER Work Phone: [facility] Comment on above: Common wart (Primary Dx); Other specified erythematous conditions Start: 05-14-2023 End: 05-14-2023 ambulatory RADHA A FELTER Not Available Start: 05-14-2023 Bamboo flowsheet Radha A Fel ter PHYSICAL THERAPY MANAGER-ENVIRONMENTAL COMPLIANCE ENGINEER Work Phone: [facility] Start: 05-14-2023 Bamboo flowsheet Radha donaldson PHYSICAL THERAPY MANAGER-ENVIRONMENTAL COMPLIANCE ENGINEER Work Phone: [facility] Start: 05-09-2023 End: 05-09-2023 ambulatory Nola Segura Other [facility] [employer] Other Start: 05-09-2023 Office outpatient vi sit 15 minutes Nola Segura [facility] Start: 05-09-2023 End: 05-09-2023 Patient encounter procedure DO Jaren Price Work Phone: [facility]- Start: 04-15-2023 End: 04-15-2023 ambulatory Jaren Albert Other [employer] Other Start: 04-15-2023 Office outpatient vi sit 15 minutes Jaren Price [facility] Start: 04-15-2023 End: 04-15-2023 Patient encounter procedure DO Jaren Price Work Phone: [facility] Work Phone: Start: 04-13-2023 End: 04-13-2023 ambulatory RADHA TERRELL [facility] [employer] Other Start: 04-13-2023 Telephone encounter Jaren Price [facility] Start: 03-27-2023 End: 03-27-2023 Emergency department patient visit Jaren Price Facility:[facility] Start: 03-27-2023 End: 03-27-2023 Emergency department patient visit DO Jaren Price Work Phone: [facility] Work Phone: Start: 01-19-2023 End: 01-20-2023 ambulatory Carlos SORTO Facility:[facility] Start: 01-19-2023 End: 01-19-2023 Patient encounter procedure Carlos SORTO [facility] Start: 11-19-2022 End: 11-19-2022 ambulatory Jaren Price Other [employer] Other Start: 11-19-2022 Nursing evaluation o f patient and report Jaren Price [facility] Start: 10-06-2022 ambulatory Carlos Ruthi ty:MICHELET Randhawa Start: 09-08-2022 End: 09-08-2022 ambulatory Jaren Price Other [employer] Other Start: 09-08-2022 Encounter for genera l adult medical examination without abnormal findings Jaren Price [facility] Start: 09-08-2022 Periodic preventive med est patient 40-64yrs Jaren Price [facility] Start: 07-08-2022 End: 07-08-2022 ambulatory Natalia Delgado Other [employer] Other Start: 07-08-2022 Patient encounter procedure Natalia Delgado [facility] Start: 03-04-2022 End: 03-04-2022 Patient encounter procedure Sadi TORREZ [facility] [place] Start: 02-21-2022 End: 02-22-[address] CARLOS SORTO Facility:[facility] Start: 02-04-2022 End: 02-05-2022 ambulatory MERNA KEENAN Facility:[facility] Start: 07-01-2021 Encounter for genera l adult medical examination without abnormal findings DR JAREN PRICE [facility] Start: 06-27-2021 End: 06-28-[address] JAREN PRICE Facility:[facility] Start: 06-27-2021 End: 06-28-2021 Encounter for general adult medical examination without abnormal findings DR JAREN PRICE Facility:[facility] Start: 06-24-2021 Adult health examination Paul Price Other [employer] Other Procedures Date Procedure Procedure Detail Performing Clinician Start: 03-08-2024 CRYOTHERAPY SKIN LESION Radha Terrell PHYSICAL THERAPY MANAGER-ENVIRONMENTAL COMPLIANCE ENGINEER Work Phone: Start: 05-14-2023 DESTRUCTION OF LESION N atacolleen Terrell PHYSICAL THERAPY MANAGER-ENVIRONMENTAL COMPLIANCE ENGINEER Work Phone: Start: 03-27-2023 SARS-CoV-2, Influenz a & RSV (PCR) DO Jaren Price Work Phone: Start: 02-21-[address] EDGAR SORTO Comment on above: Performed By: #### P SAD #### [facility] [address] [address] [address] Maritza Lopez Start: 01-21-2021 Repair of ventral hernia Sadi SHAN Appendectomy Sadi ALANISMulu Depression screening Tremaine Price Other Plan of Treatment Date Care Activity Detail Author Start: 03-09-2025 End: 03-09-2025 Patient encounter procedure 03/09/2025 3:55 PM EST Office Visit [facility] [address] [place] [phone] Radha Terrell, PHYSICAL THERAPY MANAGER-ENVIRONMENTAL COMPLIANCE ENGINEER [address] [place] [address] [facility] Start: 03-08-2024 End: 03-08-2024 Patient encounter procedure 03/08/2024 2:05 PM EST Office Visit [facility] [address] [place] [phone] Radha Terrell, PHYSICAL THERAPY MANAGER-ENVIRONMENTAL COMPLIANCE ENGINEER [address] [place] [address] Arrived [facility] Comment on above: Arrived Start: 12-06-2023 Influenza vaccination Influenz a Vaccine (#1) [facility] Start: 06-04-2023 End: 06-04-2023 Patient encounter procedure 06/04/2023 4:05 PM EST Office Visit [facility] [address] [place] [phone] Radha Terrell, PHYSICAL THERAPY MANAGER-ENVIRONMENTAL COMPLIANCE ENGINEER [address] [place] [address] [facility] Start: 05-14-2023 End: 05-14-2023 Patient encounter procedure 05/14/2023 4:05 PM EST Office Visit [facility] [address] [place] [phone] Radha Terrell, PHYSICAL THERAPY MANAGER-ENVIRONMENTAL COMPLIANCE ENGINEER [address] [place] [address] Arrived [facility] Comment on above: Arrived Start: 12-05-2022 Influenza vaccination Influenz a Vaccine (#1) [facility] Start: 1975 Screening for malign ant neoplasm of colon [facility] Comprehensive metabo lic 2000 panel - Serum or Plasma [facility] Patient Education High Blood Pre ssure ED [facility] Work Phone: Patient referral [facility] Work Phone: [facility] Immunizations Immunization Date Immunization Notes Care Provider Fa cility 07-21-2020 SARS-CoV-2 (COVID-19 ) mRNA BNT-162b2 vax Sadi TORREZ [facility] 06-30-2020 SARS-CoV-2 (COVID-19 ) mRNA BNT-162b2 vax Sadi TORREZ [facility] [place] NEGATED: Highlighted row has not occurred!03-04-2022 influenza virus vaccine, unspecified formulation Sadi TORREZ [facility] [place] Payers Date Payer Category Payer Managed Care HMO (unspecified) [id number] 2023 Private Health Insurance [id number] 2023 Self-pay 2022 Worker's Compensation [id number] 1975 Unknown [id number] 2.16.84 [id number] 1975 Unknown [id number] 2.16.84 [id number] 1975 Unknown [id number] 2.16.84 [id number] 1975 Unknown [id number] 1975 Unknown [id number] 1975 Unknown [id number] 1975 Unknown [id number] 1975 Unknown [id number] 1975 Unknown [id number] 1975 Unknown [id number] 1975 Unknown [id number] 1959 Unknown [id number] 1959 Unknown [id number] Private Health Insurance [id number] Unknown [id number] Social History Date Type Detail Facility Start: 03-04-2022 End: 04-23-2024 Tobacco smoking status Never smoked tobacco (finding) [facility] Tobacco smoking status Never [facility] [place] Start: 04-13-2023 End: 03-08-2024 Sex Assigned At Male [facility] Start: 02-05-2023 Tobacco use and exposure Smokeless tobacco non-user [facility] Start: 04-13-2023 End: 03-08-2024 History of Social function [facility] Start: 1975 Sex Assigned At Not on file N [facility] Start: 1975 Sex Assigned At Male F [facility] Start: 04-19-2024 End: 04-23-2024 Sex Male (finding) [facility] Medical Equipment Procedure Code Equipment Code Equipment Origin al Text Equipment Identifier Dates HERNIA REPAIR, R OBOT ASSISTED Sadi TORREZ MD 01/21/21 Non Biological Abdomen {[id number] {20}02 FDA Start: 01-21-2021 Functional Status Date Assessment Result Facility 07-06-2023 Functional Status N/A [facility] 01-19-2023 Functional Status N/A [facility] 03-04-2022 Functional Status N/A [facility] Clinical Notes 09-08-2022 to 03-25-2024 Note Date & Type Note Facility 03-25-2024 Evaluation note Diagnosis Onset Date Resolution COVID noneactive March 25, 2024 3:51pm [facility] Work Phone: 1(232) 916-627212-20-2024 Evaluation note* Diagnosis Onset Date Resolution Status Admit Date COVID noneactive March 25, 2024 3:51pm Viral URI with cough acute August andrez 2024 5:34pm [facility] Work Phone: 1(334) 612-767312-03-2024 History of Present illness Narrative* Radha Terrell, [employer]-ENVIRONMENTAL COMPLIANCE ENGINEER - 03/08/2024 2:05 PM EST Lesions: Location: face Duration: months Quality: denies pain, denies itch, denies bleeding Modifying factors: aggravated by picking Associated symptoms: rough, scaly Treatments: none Lesion # 2: Location: back Duration: years Quality: denies pain, denies itch, denies bleeding Modifying factors: none Associated symptoms: Dark mole Treatments: none, patient states his masseuse noticed it and said it was dark Established patient All pertinent medical history, medications, and allergies were reviewed. General Exam: alert, oriented to person, place, and time, normal affect, well appearing Unaccompanied A focused exam completed based on patient reported problems, see below: 1. Inflamed seborrheic keratosis (3) Left Buccal Cheek (2), Left Melolabial Fold Inflamed seborrheic keratoses: pink and brown stuck on verrucous scaly papule with surrounding erythema and bloody crust. The patient was informed that symptomatic seborrheic keratoses are benign growths that become inflamed, itchy, tender, traumatized, caught on clothing, or bleed. Symptomatic lesions can be treated with cryotherapy or curretage. Thicker lesions treated with cryotherapy may require more than one treatment. The patient was instructed to notify the office if abnormal redness or tenderness develops atthe treatment site. Cryotherapy today, see procedure note. Diagnosis: Inflamed seborrheic keratosis Indication: Inflamed Consent: Verbal consent was obtained and risks were discussed, including, but not limited to risks of scarring, darker or director of strategic programs pigmentary changes, recurrence, incomplete removal and infection. Method: Liquid nitrogen was used to treat the lesion(s) with two 5-10 second freeze-thaw cycles Number of lesions treated: 3 Post-procedure instructions: Instructions were given orally and in writing. The office will be contacted if the lesion fails to resolve despite treatment, or if a side effect develops such as abnormal crusting, scabbing, redness or tenderness Cryotherapy, skin lesion - Left Buccal Cheek (2), Left Melolabial Fold 2. Lentigines Torso - Posterior (Back) Scattered roberson macules in sun-exposed areas. The patient was informed that lentigines are benign pigmented lesions that occur on sun-exposed andsun-damaged skin. No treatment is necessary. Recommended regular use of broad spectrum sunscreen SPF 30 or higher 3. Melanocytic nevus of trunk Torso - Posterior (Back) Scattered benign appearing, regular brown to light brown melanocytic papules and macules with similar morphology Counseled regarding these benign growths. Rarely, a nevus can develop into malignant melanoma, so any changing nevi should be promptly re-evaluated. Next Visit: 1 year, skin check documented in this encounterH[facility] [id number] Hospital Discharge instructions Patient Education 07/06/2023 16:32:19 [...] urethra. Follow these instructions at home: Take vvsv-jnx-vlzqokr and prescription medicines only as told by [...] provider. Document Revised: 10/09/2021 Document Reviewed: 10/09/2021 [employer] Patient Education 2022 [employer]. Follow Up Care 01/19/2023 16:46:04 With:LILIA CARDOZA, Carlos Villanueva, URL Address: [facility] [address], [place] [phone] When: Unknown Comments:1 yr (no labs) [facility] 02-08-2024 History of Present illness Narrative* Radha Terrell, PHYSICAL THERAPY MANAGER-ENVIRONMENTAL COMPLIANCE ENGINEER - 05/14/2023 4:05 PM EST Follow up Diagnosis: warts Location: right tip [...] limited to risks of scarring, darker or director of strategic programs pigmentary changes, recurrence, incomplete removal and infection. 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 Follow these instructions at home: Take zwpp-wob-htgioxi and prescription medicines only as told by [...] provider. Document Revised: 10/09/2021 Document Reviewed: 10/09/2021 [employer] Patient Education 2022 [employer]. Follow Up Care 01/13/2022 17:13:17 With:Carlos SORTO MD, URL Address: [facility] [address], [place] [address]- When:Within 6 Month(s) [facility] 08-16-2023 Evaluation note* Encounter Date Diagnosis Assessment Notes Treatment Notes Treatment Clinical Notes Nov, Seasonal allergic rhinitis, unspecified trigger (ICD-10 - J30.2) [facility] Other 06-05-2023 Evaluation note* Encounter Date Diagnosis [...] [BMI ] 32.0-32.9, adult (ICD-10 - Z68.32) [facility] Other Evaluation + Plan note Future Appointments Appointment Date:01/19/2023 03:15:00 PM Scheduled Provider:Carlos SORTO MD Location:[facility] Appointment Type:URO Office Visit General Surgery [place] Evaluation + Plan note Future Appointments Appointment Date:07/13/2023 08:45:00 AM Scheduled Provider:Carlos SORTO MD Location:[facility] Appointment Type:URO Office Visit [facility] evaluation + Plan note Future Appointments Appointment Date:07/11/2024 03:15:00 PM Scheduled Provider:Carlos SORTO MD Location:[facility] Appointment Type:URO Office Visit [facility] evaluation + Plan note Future Appointments Appointment Date:07/11/2024 03:15:00 PM Scheduled Provider:Carlos SORTO MD Location:[facility] Appointment Type:URO Office Visit Diagnostic Tests Pending * PSA Screen, Total [facility] InformationN[facility]Einstein [facility] [employer] Other Evaluation note* Diagnosis Common wart- Primary Other specified viral warts Other specified erythematous conditions documented in this encounter [facility] HealthcareEvaluation noteNo assessment information availableBethesda North Hospital Work Phone: evaluqkopp note* Diagnosis Onset Date Resolution Status LALITO (generalized anxiety disorder) acute Obesity acute Primary hypertension acute Benign prostatic hyperplasia with lower urinary tract symptoms acute LALITO (generalized anxiety disorder) acute Gastro-esophageal reflux dis ease with esophagitis, without bleeding acute Primary hypertension acute Wellness examination noneact [facility] Work Phone: Evaluaftwz note* Diagnosis Onset Date Resolution Status Benign prostatic hyperplasia with lower urinary tract symptoms acute LALITO (generalized anxiety disorder) acute Gastro-esophageal reflux dis ease with esophagitis, without bleeding acute Knee pain acute Primary hypertension acute Wellness examination noneact [facility] Work Phone: Evaluation note* Diagnosis Inflamed seborrheic keratosis Lentigines Melanocytic nevus of trunk Benign neoplasm of skin of trunk, except scrotum documented in this encounter [facility] HealthcareHistory general Narrative - Reported* Type Description Date Medical History Acid reflux Medical History enlarged prostate Surgical History appendectomy [facility] Other [facility] general Narrative - Reported* Type Description Date Medical History Acid reflux Medical History enlarged prostate Surgical History appendectomy Surgical History COLONOSCOPY 2021 Surgical History EGD 2020 Surgical History HERNIORRHAPHY,INCISIONAL OR ADRY TRAL 2020 Hospitalization History SEE SURGICAL HX [facility] Other Hospital course Narrative No data available for this section General Surgery [place] [facility] Discharge instructions No data available for this section General Surgery [facility] note No data available for this section General Surgery [place] Summary Purpose Family History Relationship Condition Age [...] esophagitis, without bleeding Primary hypertension Wellness examination Chief Complaint Wellness allergy shot Reason for Visit Benign prostatic hyp erplasia with lower urinary tract symptoms LALITO (generalized anxiety disorder) Gastro-esophageal reflux disease with esophagitis, without bleeding Knee pain Primary hypertension Wellness examination Chief Complaint Admit Date Sinus congestion, cough, headache Decemb er 2023 3:51pm sore throat, loss of voice, fever 2024 5:34pm Reason for Visit Admit Date COVID March 25, 2024 3:51pm Chief Complaint Admit Date Sinus congestion, cough, headache Decemb er 2023 3:51pm sore throat, loss of voice, fever Apruar y 2024 5:34pm cough, congestion(in car) April 23, 2024 10:31am Reason for Visit Admit Date COVID March 25, 2024 3:51pm Viral URI with cough April 19, 2024 5:34pm Additional Source Comments (unrecognized sect ion and content) No Status Records FoundNo Status Records FoundNo Status Records FoundNo Status Records Found INFORMATION SOURCE (unrecogn ized section and content) DATE CREATED AUTHOR 02/24/2022 [facility] DATE CREATED AUTHOR AUTHOR'S ORGANIZ ATION 04/10/2023 [facility] DATE CREATED AUTHOR AUTHOR'S ORGANIZ ATION 07/09/2023 [facility] DATE CREATED AUTHOR AUTHOR'S ORGANIZ ATION 03/10/2024 [facility] EPIC Patient Care team informatio n (unrecognized section [...] September 14, 2023 End: September 14, 2023 Team Status: Active Member Role Status Dates Jaren Price DO Primary Care Provide r, Attending Provider Active Start: October 02, 2023 Team Status: Inactive Member Role Status Dates Jaren Price DO Primary Care Provide r, Attending Provider Active Start: October 27, 2023 End: October 27, 2023 Team Status: Inactive Member Role Status Dates Jaren Price DO Primary Care Provider Active Start: March 25, 2024 End: March 25, 2024 Natasha Madden APRN Attending Provider Active Sta rt: March 25, 2024 End: March 25, 2024 Team Status: Inactive Member Role Status Dates Jaren Price DO Primary Care Provider Active Start: April 19, 2024 End: April 19, 2024 Keiko Jacobo APRN Attending Provider Active Start: April 19, 2024 End: April 19, 2024 Team Status: Inactive Member Role Status Dates Jaren Price DO Primary Care Provider Active Start: April 23, 2024 End: April 23, 2024 Keiko Jacobo APRN Attending Provider Active Start: April 23, 2024 End: April 23, 2024 REASON FOR VISIT (unrecogniz ed section and [...] BE BASED ON THE PRIMARY CLINICAL RECORDS. [facility] provides no warranty or guarantee of the accuracy or completeness of information in this document.
== END 2024-05-02 15:03 | disposition home or self-care (01) ==
LOC: EC 15:02
PROVIDERS: Visit Provider Student in an Organized Health Care Education/Training Program
DX: M25.562 Pain in left knee (principal)
CPT/HCPCS: 73564

== ENCOUNTER 2024-08-03 16:00 | Outpatient (OUT) | payer OTHER, SELFPAY | END 2024-08-03 16:01 | disposition home or self-care (01) | LOC: SLEEP 08-04 07:52 | PROVIDERS: PCP Internal Medicine; Visit Provider Internal Medicine | DX: G47.33 Obstructive sleep apnea (adult) (pediatric) (principal) | CPT/HCPCS: 95806 ==

== ENCOUNTER 2024-08-18 15:49 | Outpatient (OUT) | payer OTHER, SELFPAY ==
--- NOTE | 2024-08-18 15:52 | MR_ITS ---
The [address] [address] Patient Name: VERONA MELISSA MRN: [id number] date: 1975 Sex: M Assigned Patient Location: MRI Current Patient Location: MRI Accession/Order Number: [id number] Exam Date: 08/18/2024 16:53 Report Date: 08/18/2024 17:02 At the request of: KENNEDY BARRIOS MD Procedure: MR knee LT wo con EXAMINATION: MRI OF THE LEFT KNEE CLINICAL DATA: Left knee pain with swelling for 4 months. COMPARISON: Left knee series 05/02/2024 TECHNIQUE: Multiecho, multiplanar imaging was performed with use of an extremity coil. No contrast was administered. FINDINGS: Joint:Large joint effusion. No Boggs's cyst. Joint spurring is present. Bone marrow edema is seen involving the medial condyle of the femur without fracture line. There is loss of articular cartilage within this region. Soft tissues: Mild anterior soft tissue swelling. No fluid collection. Quadriceps/Patellar tendon/retinaculum: There appears to be high T2 signal within the patellar tendon suggestive of patellar tendinitis. No full-thickness tear with retraction is seen. Retinaculum appears intact. Quadriceps tendon appears intact. Muscles: Normal ACL:Normal PCL:Normal Medial Meniscus:Normal Lateral Meniscus:Normal MCL:Normal LCL complex: Normal MR/MR knee LT wo con IMPRESSION: BONE MARROW EDEMA IS SEEN INVOLVING MEDIAL CONDYLE OF THE FEMUR SUGGESTIVE OF CONTUSION WITHOUT FRACTURE LINE. THERE IS LOSS OF ARTICULAR CARTILAGE WITHIN THIS REGION OF BONE MARROW EDEMA. THERE IS ASSOCIATED LARGE JOINT EFFUSION. NO MRI EVIDENCE OF MENISCAL TEAR. NO MRI EVIDENCE OF ACL OR PCL TEAR. NO MRI EVIDENCE OF MCL OR LCL TEAR. THERE APPEARS TO BE HIGH T2 SIGNAL WITHIN THE PATELLAR TENDON SUSPICIOUS FOR PATELLAR TENDINITIS. NO FULL-THICKNESS TEAR WITH RETRACTION IS SEEN. A PARTIAL TEAR CANNOT BE EXCLUDED. PLEASE SEE SERIES 8001 IMAGE 11.. Impression dictated by: Roe Bueno Jr., D.O. 08/18/2024 5:02 PM Dictation Location: [place] [address] Electronically authenticated by: [id number] Y Date: 08/18/2024 17:02
== END 2024-08-18 15:50 | disposition home or self-care (01) ==
LOC: MRI 15:49
PROVIDERS: PCP Internal Medicine; Visit Provider Student in an Organized Health Care Education/Training Program
DX: M23.92 Unspecified internal derangement of left knee (principal); M25.462 Effusion, left knee
CPT/HCPCS: 73721

== ENCOUNTER 2025-02-23 15:51 | Outpatient (OUT) | payer OTHER, SELFPAY ==
--- OUTSIDE RECORDS SUMMARY | 2025-02-14 06:40 | XMS_ITS ---
Author Organization [facility] Address [address] [place] [address] Care Team Providers Care Instructional Media Services Technician Name Role Phone CARRILLO BORGES DO Primary Care Provider Sarabjit Reddy Unavailable [phone] Reason For Referral Reason APPROVED ....PLEASE PRECERT MRI LEFT SHOULDER AT [facility] Diagnosis 1 Rotator cuff syndrom e of left shoulder (M75.102) Referral Organization [facility] Referring Provider First Name Sarabjit Referring Provider Last Name Anthony Referring Provider Speciality Orthopedic Surgery Referred Organization [facility] Referred Provider Sarabjit Cruz Referred Address [place], [place], Referred Provider Specialty Orthopedic S urgery Procedure 1 MRI Joint Upper Ext w/o Dye ([id number]) General Notes Sana Snyder 2024 12:07:48 PM >, Lady Lamb 02/14/2025 02:39:57 PM >APPROVED PER [facility] Authorization #[id number] Tracking #[id number] VALID 02/15/2025-04/01/2025 COPY IN CHART MA NOTIFIED REF FAXED TO Lillian ARMENTA Tricia 02/15/2025 07:55:23 AM >ORDER FAXED Referral Priority Routine REASON FOR VISIT LT KNEE, Left shoulder pain, left knee pain Medications Medication SIG (Take, Route, Frequency, Duration) Notes Start Date End Date Status tamsulosin ActivetadalafilActiveXanax 0.5 mgone tablet an hour prior to procedure and one tablet immediately prior to procedure orally 1 time dose; Duration: 1 days 5Activenaproxen 500 mg1 tab(s) orally 2 times a day; Duration: 30 days 5Activenaproxen 500 mg1 tab(s) orally 2 times a day as needed for pain; Duration: 30 days5ActivepantoprazoleActivefinasterideActive Problems Problem Type SNOMED Code ICD Code Onset Dates Problem Status W/U Status Risk Notes Problem Left rotator cuff sy ndrome ([id number]) Rotator cuff syndrome of left shoulder (M75.102) Activeconfirmed Vital Signs Height 6' in 02/14/2025 Weight 235 lbs 02/14/2025 BMI 31.87 02/14/2025 Encounters Encounter Location Date Provider Diagnosis [facility] [address] [place] [id number] 02/14/2025 Sarabjit Cruz Primary osteoarthrit is of both knees M17.0 and Rotator cuff syndrome of left shoulder M75.102 Assessments Encounter Date Diagnosis (ICD Code) Assessment Notes Treatment Notes Treatment Clinical Notes Section Notes 02/14/2025 Primary osteoarthritis of both k nees (ICD-10 - M17.0) Left shoulder AC joint arthrosis Left shoulder rotator cuff syndrome Left knee OA 02/14/2025Rotator cuff syndrome of left shoulder (ICD-10 - M75.102) Left shoulder AC joint arthrosis Left shoulder rotator cuff syndrome Left knee OA 02/14/2025OtherLengthy discussion today with Josh regarding his multiple extremity complaints. Regarding the leftknee he has had good improvement with injections. His prior MRI does demonstrate arthritis but no significant meniscal pathology. Will trial injection again today. Do not recommend scope at this point due to no meniscal tear seen on MRI. Regards to his left shoulder does appear to have probably a rotator cuff tear. Will order MRI as he has tried injections with no relief. Follow-up on completion of MRI Left shoulder AC joint arthrosis Left shoulder rotator cuff syndrome Left knee OA Plan Of Treatment Medication Medication Name Sig Start Date Stop Date Notes Xanax 0.5 mg one tablet an hour p rior to procedure and one tablet immediately prior to procedure orally 1 time dose; Duration: 1 days 02/14/2025 Treatment Notes Assessment Notes Other Lengthy discussion t kavita with Josh regarding his multiple extremity complaints. Regarding the left knee he has had good improvement with injections. His prior MRI does demonstrate arthritis but no significant meniscal pathology. Will trial injection again today. Do not recommend scope at this point due to no meniscal tear seen on MRI. Regards to his left shoulder does appear to have probably a rotator cuff tear. Will order MRI as he has tried injections with no relief. Follow-up on completion of MRI Pending Test Test Name Order Date MRI : Shoulder W/O Contrast Left - [id number] 02/14/2025 Shoulder, left 4v AP, Y, Axillary, gl[place] id - [id number] 02/14/2025 Referrals Referral Date Details 02/14/2025 02/14/2025, APPROVED ....PLEASE PRECERT MRI [facility], [place] Next Appt Details Follow Up: AFTER MRI, Reason : Progress Notes * JOSH MELISSA BDOB:[birth year] (49 yo M)Acc No.[id number]:02/14/2025 Patient:?JOSH MELISSA B :?SANJANA PrietoOB:1975???Age:49 Y ???Sex:MaleDate:02/14/2025Phone:[phone]:[address] [place], [place] [id number]:CARRILLO BORGES DO Subjective: * Chief Complaints: * 1 . LT KNEE. 2. Left shoulder pain, left knee pain. * HPI: ???General Follow Up Information:? Patient is a pleasant 49-year-old male presents today for multiple extremity complaints. He is following up for his left knee osteoarthritis. He had an injection back in September which gave good relief. Interested in potentially another injection today. He is had nonew falls or injuries and respects this. He also has a new complaint of left shoulder pain. Pain isthrobbing and aching in nature made worse activity. He does like to lift weights and took a 5-monthbreak however still having pain. He has also tried a subacromial injection which did not provide any relief. He has no numbness or tingling. * ROS: ???Constitutional:?Denies?Chills.?PM and R Intake:?Denies?Fever.?Denies fever, chills, numbness tingling. * Medical History: * Medications: T aking finasteride , Taking pantoprazole , Taking tadalafil , Taking tamsulosin , Taking naproxen 500 mg tablet 1 tab(s) orally 2 times a day , Taking naproxen 500 mg delayed release tablet 1 tab(s) orally 2 times a day as needed for pain , Medication List reviewed and reconciled with the patient Objective: * Vitals: H t: 6', Wt: 235 lbs, BMI:31.87. * Examination: ???General examination: ???Left upper extremity:Skin intact. Patient has AC joint tenderness palpation. Demonstrates full range of motion of the shoulder that is minimally painful. Does have pain and weaknesswith resisted supraspinatus and infraspinatus. Subscap is strong. Positive Jobes Neer's and Hawkinsmaneuvers. Motor and sensory exam is intact without deficits. 2+ radial pulse. Left lower extremity:Skin intact. There is no effusion. No pain with varus or valgus stress. Pain with Jered's. Sterling stable. Motor and sensory exam is intact without deficit. 2+ DP pulse. ???X-ray Imaging Studies: ???I reviewed 4 views of the left shoulder in our office today demonstrates no acutefracture or dislocation. There are moderate to severe degenerative changes of the AC joint. Glenohumeral joint is well-maintained. There are no lytic or blastic lesions. ??? Assessment: * Assessment: 1.?Primary osteoarthritis of both knees - M17.0 (Primary)???2.?Rotator cuff syndrome of left shoulder - M75.102???Left shoulder AC joint arthrosis Left shoulder rotator cuff syndrome Left knee OA. Plan: * Treatment: Start Xanax tablet, 0.5 mg, one tablet an hour prior to procedure and one tablet immediately prior to procedure, orally, 1 time dose, 1 days, 2, Refills 0.?Imaging: Shoulder, left 4v AP, Y, Axillary, glenoid - [id number].?Rotator cuff syndrome of left shoulder?Imaging: MRI : Shoulder W/O Contrast Left - [id number]? Referral To:Sarabjit Cruz??Orthopedic Surgery ?Reason:APPROVED....PLEASE PRECERT MRI LEFT SHOULDER AT [facility] 3.?Others? Notes: Lengthy discussion today with Josh regarding his multiple extremity complaints. Regarding the left knee he has had good improvement with injections. His prior MRI does demonstrate arthritis but no significant meniscal pathology. Will trial injection again today. Do not recommend scope at this point due to no meniscal tear seen on MRI. Regards to his left shoulder does appear to have probably a rotator cuff tear. Will order MRI as he has tried injections with no relief. Follow-up on completion of MRI?? * Procedures: ???Under sterile conditions the left knee was prepped with alcohol and Betadine. Left knee joint was then injected with a solution of 2 cc 0.25% Marcaine plain and 80 mg Depo-Medrol. ? * Procedure Codes: 7 3030 X-ray Shoulder, 2 or more view, Injection major joint/bursa, J1010 Injection, Methylprednisolone Acetate 1 mg, Units: 80.00 * Follow Up: A FTER MRI Forms: * Images: * Electronic signature of Sarabjit Cruz , on 02/23/2025 at 03:54 PM ESTSign off status: Pending * Provider: Liam Cruz DO Date: 04/16/2024 Generated for Printing/Faxing/eTransmitting on:?02/23/2025 03:54 PM EST History and Physical Notes * HPI (History of Present Illness) CategorySub-CategoryDetailNotesCategory NotesGeneral Follow Up Information Patient is a pleasant 49-year-old male presents today for multiple extremity complaints. He is following up for his left knee osteoarthritis. He had an injection back in September which gave good relief. Interested in potentially another injection today. He is had no new falls or injuries and respects this. He also has a new complaint of left shoulder pain. Pain is throbbing and aching in nature made worse activity. He does like to lift weights and took a 5-month break however still having pain. He has also tried a subacromial injection which did not provide any relief. He has no numbness or tingling. Examination CategorySub-CategoryDetailNotesCategory NotesGeneral examination Left upper extremity:Skin intact. Patient has AC joint tenderness palpation. Demonstrates full range of motion of the shoulder that is minimally painful. Does have pain and weakness with resisted supraspinatus and infraspinatus. Subscap is strong. Positive Jobes Neer's and Sales maneuvers. Motor and sensory exam is intact without deficits. 2+ radial pulse. Left lower extremity:Skin intact. There is no effusion. No pain with varus or valgus stress. Pain with Jered's. Sterling stable. Motor and sensory exam is intact without deficit. 2+ DP pulse X-ray Imaging StudiesI reviewed 4 views of the left shoulder in our office today demonstrates no acute fracture or dislocation. There are moderate to severe degenerative changes of the AC joint. Glenohumeral joint is well-maintained. There are no lytic or blastic lesions. Consultation Request Notes Referral Date Referring Provider Referred Provider Not es 02/14/2025 Sarabjit Cruz Dylan APPROVED .. ..PLEASE PRECERT MRI LEFT SHOULDER AT [facility]
--- OUTSIDE RECORDS SUMMARY | 2025-02-23 15:54 | XMS_ITS | Patient Health Record ---
Author Organization [facility] Address [address] [place] [address] Care Team Providers Care Chef German Name Role Phone CARRILLO BORGES DO Primary Care Provider Sarabjit Reddy Unavailable [phone] xxRiazJazmin shankarle Unavailable Allergies No Known Allergies Reason For Referral Reason APPROVED MED MUTUA L...NOT SCHED...PLEASE PRECERT MRI LEFT KNEE AT [place] Diagnosis 1 Internal derangement of left knee (M23.92) Referral Organization [facility] Referring Provider First Name Sarabjit Referring Provider Last Name Anthony Referring Provider Speciality Orthopedic Surgery [facility] Referred Provider Sarabjit Cruz Referred Address [place], [place], Referred Provider Specialty Orthopedic S urgery Procedure 1 MRI Joint Lower Ext w/o Dye ([id number]) General Notes Sana Snyder 2024 09:59:02 AM >Renita Amber 08/05/2024 03:29:27 PM > AUTH WAS APPROVED PER [facility]. APPROVED DATES ARE FROM 08/05/2024-09/19/2024. AUTH # [id number]. AUTH IN CHART. PER [employer], TITI JEFFRIES IS ACTIVE OF 05/07/2024. FAXED TO GE[facility].Lillian Tricia 08/09/2024 01:56:55 PM >ORDER FAXED Referral Priority Routine Reason APPROVED ....PLEASE PRECERT MRI LEFT SHOULDER AT [facility] Diagnosis 1 Rotator cuff syndrom e of left shoulder (M75.102) Referral Organization [facility] Referring Provider First Name Sarabjit Referring Provider Last Name Anthony Referring Provider Speciality Orthopedic Surgery Referred Organization [facility] Referred Provider Sarabjit Cruz Referred Address [place], [place], Referred Provider Specialty Orthopedic S urgery Procedure 1 MRI Joint Upper Ext w/o Dye ([id number]) General Notes Sana Snyder 2024 12:07:48 PM >, Lady Lamb 02/14/2025 02:39:57 PM >APPROVED PER [employer] Authorization #[id number] Tracking #[id number] VALID 02/15/2025-04/01/2025 COPY IN CHART MA NOTIFIED REF FAXED TO Lillian ARMENTA Tricia 02/15/2025 07:55:23 AM >ORDER FAXED Referral Priority Routine Medications Medication SIG (Take, Route, Frequency, Duration) Notes Start Date End Date Status tamsulosin ActivepantoprazoleActivetadalafilActivefinasterideActiveXanax 0.5 mgone tablet an hour prior to procedure and one tablet immediately prior to procedure orally 1 time dose; Duration: 1 days5Activenaproxen 500 mg1 tab(s) orally 2 times a day; Duration: 30 days5Activenaproxen 500 mg1 tab(s) orally 2 times a day as needed for pain; Duration: 30 days5Active Social History Tobacco Use: Social History Observation Description Date Details (start date - stop date) Never Smoker NA - NA AUDIT-C (Standard) Question Answer Notes Did you have a drink containing alcohol in the p ast year? Yes How often did you have six or more drinks on one occasion in the past year? Declined to specify (0 point)How many drinks did you have on a typical day when you were drinking in the past year?Declined to specify (0 point)How often did you have a drink containing alcohol in the past year?Declined to specify (0 point)Stmtko3CzvxdngowjrgagTkeuivjfAqgwdlp Control (Standard) Question Answer Notes Tobacco use: Nonsmoker Problems Problem Type SNOMED Code ICD Code Onset Dates Problem Status W/U Status Risk Notes Problem Pain of right knee j oint (finding) (997773433342951) Pain, joint, knee, right (M25.561) ActiveconfirmedProblemOsteoarthritis of knee (815723261)Primary osteoarthritis of left knee (M17.12)ActiveconfirmedProblemInternal derangement of right knee (08232966678218150)Internal derangement of right knee (M23.91)Activeconfirmed ProblemAcute pain of left knee (M25.562)ActiveconfirmedProblemOsteoarthritis of knee (620131944)Primary osteoarthritis of both knees (M17.0)Activeconfirmed ProblemInternal derangement of left knee (27720067957461444)Internal derangement of left knee (M23.92)ActiveconfirmedProblemLeft rotator cuff syndrome (782500150325038)Rotator cuff syndrome of left shoulder (M75.102)Activeconfirmed ProblemOsteoarthritis of knee (254505568)Osteoarthritis of right knee (M17.11) Activeconfirmed Vital Signs Height 6' in 02/14/2025 Sgbnaj585 lbs104/16/2024BMI31.8702/14/2025 Encounters Encounter Location Date Provider Diagnosis [facility] [address] [place] [phone] 02/14/2025 Sarabjit Cruz Primary osteoarthritis of both knees M17.0 and Rotator cuff syndrome of left shoulder M75.[address] [address] 05/02/2024 Nemo xxiteland Acute pain of left knee M25.562 ; Pain, joint, knee, right M25.561 and Primary osteoarthritis of both knees M17.0 [facility] [address] [place] [address] 08/01/2024 Sarabjit Cruz Internal derangement of left knee M23.92 [facility] [address] [place] [address] 09/12/2024 Sarabjit Cruz Primary osteoarthritis of left knee M17.12 [facility] [place] [address] [place] [address] 08/25/2024 Sarabjit Cruz Osteoarthritis of right knee M17.11 Assessments Encounter Date Diagnosis (ICD Code) Assessment Notes Treatment Notes Treatment Clinical Notes Section Notes 05/02/2024 Pain, joint, knee, right (ICD-10 - M25.561) Bilateral knee fbmjhdjyllzbvw58/27/2025ute pain of left knee (ICD-10 - M25.562)Bilateral knee zicxatsomoyksl40/28/2025Internal derangement of left knee (ICD-10 - M23.92)Left knee internal ydfjywbzynk18/22/2025Osteoarthritis of right knee (ICD-10 - M17.11)09/12/2024Primary osteoarthritis of left knee (ICD-10 - M17.12)Left knee medial compartment naipvmfxfconbb70/11/2025Primary osteoarthritis of both knees (ICD-10 - M17.0) Left shoulder AC joint arthrosis Left shoulder rotator cuff syndrome Left knee OA 02/14/2025Rotator cuff syndrome of left shoulder (ICD-10 - M75.102) Left shoulder AC joint arthrosis Left shoulder rotator cuff syndrome Left knee OA 05/02/2024Primary osteoarthritis of both knees (ICD-10 - M17.0)Bilateral knee /11/2025OtherLengthy discussion today with Josh regarding his multiple extremity complaints. Regarding the leftknee he has had good improvement with injections. His prior MRI does demonstrate arthritis but no si gnificant meniscal pathology. Will trial injection again today. [...] shoulder rotator cuff syndrome Left knee OA 05/02/2024OtherToday I reviewed patient's x-rays with him and he does have more significant medial joint space narrowing on the left. Patient would like to repeat corticosteroid injections and I did provide that for him today as he did get about 6 months out of his last injections. I will refill of the naproxen he was given at an urgent care as it is helping him. We will see him back on an as- needed basis.Bilateral knee sgpqlnfoxestoh80/28/2025OtherDiscussion had today with Josh regarding his left knee pain. Does have medial joint line tenderness to palpation. Pain with Jered's. Did discuss treatment options. At this time we will recommend MRI due to mechanical symptoms. Will see him back upon completion of MRILeft knee internal nxxhzhnkafi21/09/2025OtherDiscussion had today with the patient regarding his left knee. We did discuss treatment options. Weincluded operative versus nonoperative management. Not interested in any surgeries at this point. Will trial a corticosteroid injection as these have helped in the past. Follow-up in 6 weeksLeft knee medial compartment chondromalacia Plan Of Treatment Pending Test Test Name Order Date MRI : Knee W/O Contrast Left - [id number] MRI : Shoulder W/O Contrast Left - [id number] 02/14/2025 Shoulder, left 4v AP, Y, Axillary, gleno id - [id number] 02/14/2025 [facility]- KNEE 4 VIEW LEFT-[id number] 05/02/2024 [facility] Knee right, 4v -[id number] 10/12/2023 Insurance Providers Payer Name Payer Address Payer Phone Subscriber Number Group Number Insured Name Patient Relationship to Insured Coverage Start Date Coverage End Date [employer] [address] [place] [phone] [id number] LADY MELISSA Spouse - patient is the spouse of the insured 5 Medical (General) History Medical History History ICD Code High Blood Pressure AnxietySurgical History Surgery Date(Month/Year) Umbilical hernia 12/24
--- OUTSIDE RECORDS SUMMARY | 2025-02-23 15:55 | XMS_ITS | Clinical Summary ---
Author Organization [employer] [facility] tem Address [id number] [address] [place] [address] Care Team Providers Care Cook Dinner Name Role Phone Jaren Price Primary Care Provider [phone] Allergies No known active allergies Medications MedicationSigDispense QuantityRefillsLast FilledStart DateEnd DateStatus tamsulosin (FLOMAX) 0.4 mg capsule Take 1 capsule (0.4 mg total) by mouth in the morning.Active pantoprazole (PROTONIX) 40 mg EC tablet Take 1 tablet (40 mg total) by mouth in the morning.Active finasteride (PROSCAR) 5 mg tablet Take 1 tablet (5 mg total) by mouth in the morning.Active Active Problems ProblemNoted DateDiagnosed DateGERD (gastroesophageal reflux disease)07/21/2022 History of prostate zmkamata65/17/2023 Family History Medical HistoryRelationNameCommentsDementiaMaternal GrandfatherDiabetesMaternal GrandfatherHeart diseaseMaternal GrandfatherCancerMaternal GrandmotherCancer Paternal GrandfatherLymphomaPaternal GrandfatherCancerPaternal GrandmotherColon cancerPaternal GrandmotherDiabetesPaternal GrandmotherRelationNameStatusComments FatherAliveMaternal GrandfatherDeceasedMaternal GrandmotherAliveMotherAlive Paternal GrandfatherDeceasedPaternal GrandmotherDeceased Social History Tobacco UseTypesPacks/DayYears UsedDateSmoking Tobacco: NeverSmokeless Tobacco: Never Tobacco Cessation:Counseling Given: Not Answered Alcohol UseStandard Drinks/WeekCommentsNot Currently0 (1 standard drink = 0.6 oz pure alcohol)Sex and Gender InformationValueDate RecordedSex Assigned at Not on fileLegal TmkMybb9506/24/2022 10:30 AM EDTGender IdentityNot on fileSexual OrientationNot on file Last Filed Vital Signs Vital SignReadingTime TakenCommentsBlood Nouxcyad918/8604 1:16 PM EDT Pulse--Temperature--Respiratory Rate--Oxygen Saturation--Inhaled Oxygen Concentration--Luwfag841 kg (238 lb)07/21/2022 1:16 PM ATXRwvmup841.9 cm (6') 07/21/2022 1:16 PM EDTBody Mass Index32.28007/21/2022 1:16 PM EDT Plan of Treatment Health MaintenanceDue DateLast DoneCommentsDepression Acyhbezwt67/11/1988Tobacco Hrjglvizt19/11/1988DTaP,Tdap and Td Vaccines (1 - Tdap)09/14/1994Adult BMI Zkxguewhq26OVID-19 Vaccine ( season)2024 07/21/2020, 06/30/2020Influenza Wenpwfu1112/05/2024 Medical Devices Not on file Insurance Care Teams Team MemberRelationshipSpecialtyStart DateEnd Date Jaren Price, [address] [place] [address] PCP - GeneralInternal Medicine07/21/22
--- OUTSIDE RECORDS SUMMARY | 2025-02-23 15:55 | XMS_ITS | Encounter Summary ---
Author Organization [facility] Address [address] [place] [address] Care Team Providers Care Forwarder Operator Name Role Phone Unavailable Primary Care Provider Unavailabl e Source Comments In the event this information is protected by the Federal Confidentiality of Alcohol and Drug AbusePatient Records regulations: The Federal rules restrict any use of the information to criminally investigate or prosecute any alcohol or drug abuse patient.[facility] Encounter Details DateTypeDepartmentCare Team (Latest Contact Info)Mzdzugqndmp55/17/2025Orders Only [facility] [address] [place] [address] Rossy Lewis LGC Genetic screening (Primary Dx) Social History Tobacco UseTypesPacks/DayYears UsedDateSmoking Tobacco: Never AssessedSex and Gender InformationValueDate RecordedSex Assigned at BirthNot on fileLegal Sex Male02/16/2025 5:16 PM ESTGender IdentityNot on fileSexual OrientationNot on filedocumented as of this encounter Progress Notes * Rossy Lewis LGC - 02/20/2025 10:50 AM EST Josh's sample is requested for his daugther's genetic testing. Josh's daughter previously had genetic testing in the form of a P[employer]ri[employer]itae Inherited Retinal Disorders panel, which reported a heterozygous variant of uncertain significance (VUS) in the PDE6A gene clif[place] heterozygous pathogenic variant in PDE6A. Parental testing for this VUS was offered for free by the performing lab, and Josh was agreeable to this testing. Genetic testing was ordered in the form of parental testing for the VUS and heterozygous pathogenic variant in the PDE6A gene for analysis and segregation testing. Josh can have his blood drawn at any [facility]. Josh was encouraged to contact me should any questions or concerns arise. Rossy Lewis MS, [facility] Licensed, Certified Genetic Counselor documented in this encounter Plan of Treatment NameTypePriorityAssociated DiagnosesDate/TimeNVTA INVITAE FAMILY VARIANT TESTING PANELLabRoutine Genetic screening 02/21/2025 11:57 AM ESTNameTypePriorityAssociated DiagnosesOrder ScheduleNVTA INVITAE FAMILY VARIANT TESTING PANELLabRoutine Genetic screening Expected: 02/20/2025, Expires: 05/22/2025documented as of this encounter Visit Diagnoses Diagnosis Genetic screening- Primary Other genetic screening documented in this encounter
--- OUTSIDE RECORDS SUMMARY | 2025-02-23 15:55 | XMS_ITS | Clinical Summary ---
Author Organization [facility] Address [address] [place] [address] Care Team Providers Care Instrumentation Supervisor Name Role Phone Unavailable Primary Care Provider Unavailabl e Encounters DateTypeDepartmentCare LrugNtazizlandf16/18/8035Nvkdos15/17/2025Orders Only [facility] [address] [place] [address] Rossy Lewis LGC Genetic screening (Primary Dx)from Last 3 Months Social History Tobacco UseTypesPacks/DayYears UsedDateSmoking Tobacco: Never AssessedSex and Gender InformationValueDate RecordedSex Assigned at BirthNot on fileLegal Sex Male02/16/2025 5:16 PM ESTGender IdentityNot on fileSexual OrientationNot on file Plan of Treatment Health MaintenanceDue DateLast DoneCommentsAnxiety Pzmclzayt63/11/1994Depression Dknoyfkyf01/11/1994HIV Rmdukucuy63/11/1994Hepatitis C Eznjjbehy59/11/1994 DTaP,Tdap,Td Vaccine (1 - Tdap)09/14/1994Hepatitis B Vaccine (1 of 3 - 19+ 3- dose series)09/14/1994Lipid Frocrchvp72/11/2011CT Lfpittjluypz95/11/2021 Cologuard (FIT-DNA)09/14/20208513Vwxfzdpkmqu39/11/2021olorectal Cancer Screening 09/14/2020iabetes Anmyhicuz74/11/2021Fecal Occult Blood09/14/2020igmoidoscopy 09/14/2020ovid-19 Vaccine (3 - 2024- season)504/, 06/30/2020 Influenza Vaccine (#1)2024 Insurance
--- OUTSIDE RECORDS SUMMARY | 2025-02-23 15:55 | XMS_ITS | Clinical Summary ---
Author Organization [facility] Address [address] [facility] [place] [address] Care Team Providers Care Refrigerated National Truck Driver Name Role Phone Jaren Price DO Primary Care Provider [phone] Allergies No known active allergies Medications MedicationSigDispense QuantityRefillsLast FilledStart DateEnd DateStatus finasteride (Proscar) 5 MG tablet Take 5 mg by mouth.08/18/2022ctive pantoprazole (ProtoNix) 40 MG EC tablet Take 40 mg by mouth in the morning.Active Cialis 10 MG tablet Take 10 mg by mouth.01/19/2023ctive tamsulosin (Flomax) 0.4 MG 24 hr capsule Take 0.4 mg by mouth.08/18/2022ctive Active Problems No known active problems Family History Medical HistoryRelationNameCommentsDiabetesOtherHypertensionOtherRelationName StatusCommentsOther Social History Tobacco UseTypesPacks/DayYears UsedDateSmoking Tobacco: NeverSmokeless Tobacco: Never Tobacco Cessation:Counseling Given: Not Answered Sex and Gender InformationValueDate RecordedSex Assigned at BirthNot on file Legal NxpHlhx2906/18/2022 7:19 PM EDTGender IdentityNot on fileSexual Orientation Not on file Plan of Treatment DateTypeDepartmentCare Team (Latest Contact Info)Abwmiwvvfwv70/04/2025 3:55 PM ESTOffice Visit [facility] [address] [facility] [address] [place] [phone] Radha Terrell, LABOR STANDARDS DIRECTOR-BRICK WASHER [address] [facility] [address] [place] [address] Care Teams Team MemberRelationshipSpecialtyStart DateEnd Date Jaren Price DO [address] [place] [address] PCP - GeneralInternal Medicine08/26/24
--- OUTSIDE RECORDS SUMMARY | 2025-02-23 15:55 | XMS_ITS | Encounter Summary ---
Author Organization [facility] Address [address] [place] [address] Care Team Providers Care Business Process Analyst Name Role Phone Unavailable Primary Care Provider Unavailabl e Source Comments In the event this information is protected by the Federal Confidentiality of Alcohol and Drug AbusePatient Records regulations: The Federal rules restrict any use of the information to criminally investigate or prosecute any alcohol or drug abuse patient.[facility] Encounter Details DateTypeDepartmentCare Team (Latest Contact Info)Ztjvflgxyct80/18/2025Travel Social History Tobacco UseTypesPacks/DayYears UsedDateSmoking Tobacco: Never AssessedSex and Gender InformationValueDate RecordedSex Assigned at BirthNot on fileLegal Sex Male02/16/2025 5:16 PM ESTGender IdentityNot on fileSexual OrientationNot on filedocumented as of this encounter Plan of Treatment Not on file documented as of this encounter Visit Diagnoses Not on filedocumented in this encounter
--- NOTE | 2025-02-23 15:56 | MR_ITS ---
The [address] [address] Patient Name: VERONA MELISSA MRN: [id number] date: 1975 Sex: M Assigned Patient Location: MRI Current Patient Location: MRI Accession/Order Number: [id number] Exam Date: 02/23/2025 16:00 Report Date: 02/23/2025 17:16 At the request of: KENNEDY BARRIOS MD Procedure: MR shoulder LT wo con MR LEFT SHOULDER CLINICAL INFORMATION: Left shoulder pain, weakness and left arm. COMPARISON: None. PROCEDURE: Axial, oblique coronal, and oblique sagittal long TR images of the shoulder were obtained. FINDINGS: ROTATOR CUFF AND ASSOCIATED STRUCTURES Biceps Tendon: The biceps tendon is normally situated within the bicipital groove. No complete or partial biceps tendon tear is present. Rotator cuff: There is a partial-thickness articular surface tear of the supraspinatus tendon just proximal to the rotator cuff insertion. There is a partial-thickness articular surface tear of the subscapularis tendon just medial to the biceps groove. The infraspinatus tendon and teres minor tendon are intact. Musculature: There is no muscular tear, contusion, or atrophy. Bursa: No bursal effusion or thickening is seen. OSSEOUS STRUCTURES Acromioclavicular joint: There are moderate degenerative changes of the acromioclavicular joint. A type 2 acromion configuration is noted. There is no anterior or lateral acromial downsloping. Bones: No Hill-Sachs, reverse Hill-Sachs, or bony Bankart lesions are seen. There are no fractures or regions of abnormal bone marrow signal intensity. GLENOHUMERAL JOINT Joint: There is no glenohumeral joint effusion. Cartilage: No focal hyaline cartilage defects are noted. Labrum: The labrum is not optimally evaluated. Other support structures: No capsular or ligamentous abnormality is seen. MR/MR shoulder LT wo con IMPRESSION: 1. There is a partial-thickness articular surface tear of the supraspinatus tendon just proximal to the rotator cuff insertion. 2. There is a partial-thickness articular surface tear of the subscapularis tendon just medial to the biceps groove. Moderate hypertrophic changes are noted in the acromioclavicular joint. Impression dictated by: Randall Orellana M.D. 02/23/2025 5:16 PM Dictation Location: [place] [address] Electronically authenticated by: [id number] Y Date: 02/23/2025 17:16
--- OUTSIDE RECORDS SUMMARY | 2025-02-23 15:56 | XMS_ITS | Clinical Summary ---
Author Organization [facility] Address [address] [facility] [place] [address] Phone Care Team Providers Care Logistics Service Representative Name Role Phone Unavailable Primary Care Provider Unavailabl e Social History Tobacco UseTypesPacks/DayYears UsedDateSmoking Tobacco: Never AssessedSex and Gender InformationValueDate RecordedSex Assigned at BirthNot on fileLegal Sex Male02/28/2022 9:09 PM ESTGender IdentityNot on fileSexual OrientationNot on file Plan of Treatment Not on file
--- OUTSIDE RECORDS SUMMARY | 2025-02-23 15:58 | XMS_ITS | CCD ---
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 (finasteride 5 mg Tab) 1 Tablets By Mouth Every day Unchanged tadalafil (Cialis 10 mg Tab) 1 Tablets By Mouth Every day as needed for for erectile dysfunction Unchanged tamsulosin (Flomax 0.4 mg Cap) 1 Capsules By Mouth 2 times a day Unchanged pantoprazole (Pantoprazole [address] Tab) 1 Tablets By Mouth Every day Contact prescribingphysician if questions or concerns Allergies No Known Allergies Problems Ongoing - Any problem that you are currently receiving treatment for. Bilateral groin pain BMI 32.0-32.9,adult BPH with urinary obstruction ED (erectile dysfunction) Esophageal reflux Hypertension Hypogonadism male Low energy Nocturia Prostate cancer screening Prostatitis Right groin pain Varicocele Ventral incisional hernia Patient Survey You may receive a survey via text or e-mail asking about your office visit. Please share your experience with us by completing your survey. We appreciate your feedback and thank you for choosing us for your care. Education Materials Benign Prostatic Hyperplasia Benign prostatic hyperplasia (BPH) [...] or symptoms? Symptoms of this condition include: ??? Getting up often during the night to urinate. ??? Needing to urinate frequently during the day. ??? Difficulty starting urine flow. ??? Decrease in size and strength of your urine stream. ??? Leaking (dribbling) after urinating. ??? Inability to pass urine. This needs immediate treatment. ??? Inability to completely empty your bladder. ??? Pain when you pass urine. This is more common if there is also an infection. ??? Urinary tract infection (UTI). How is this diagnosed? This condition is diagnosed based on your medical history, a physical exam, and your symptoms. Tests will also be done, such as: ??? A post-void bladder scan. This measures any amount of urine that may remain in your bladder after you finish urinating. ??? A digital rectal exam. In a rectal exam, your health care provider checks your prostate by putting a lubricated, gloved finger into your rectum to feel the back of your prostate gland. This exam detects the size of your gland and any abnormal lumps or growths. ??? An exam of your urine (urinalysis). ??? A prostate specific antigen (PSA) screening. This is a blood test used to screen for prostate cancer. ??? An ultrasound. This test uses sound waves to electronically produce a picture of your prostate gland. Your health care provider may refer you to a specialist in kidney and prostate diseases (urol (morecontent not included)...[facility] Urology Office/Clinic Noteon [phone] Office/Clinic NoteUrology Office/Clinic Note Chief Complaint 1 year f/u HPI Staff 1 yr f/u. Previous dx: BPH w urinary obstruction, nocturia, prostate ca screening, low energy. *Tamsulosin 0.4mg bid, Finasteride 5mg qd, and Cialis 10mg qod PSA 02/21/22 - 0.26 07/06/23 - 0.20 pt denies any urinary issues, pt states he has frequency at night. History of Present Illness Tests reviewed: reviewed [...] HPI. Physical Exam Vitals & Measurements T: 37 ???C(Oral) HR: 66(Peripheral) RR: 16 BP: 126/80 SpO2: 98% HT: 183 cm HT: 72 in WT: 110.8 kg WT: 244.272 lb BMI: 33.09 General Appearance: alert, no distress, well nourished, well developed male. Assessment/Plan Testosterone level 10/09/2019 - 419 (450 - 786). Has good energy levels. Was recently started on escitalopram per PCP. 1. BPH with urinary obstruction (N40.1: Benign prostatic hyperplasia with lower urinary tract symptoms) IPSS 6. UA today negative for blood and infection. Taking Tamsulosin 0.4mg bid, Finasteride 5mg qd,and Cialis 10mg qod. Denies any infections. Has noticed improvement especially with Cialis. Good stream. Feels he empties. Denies accidents. No difficulty with voiding. -Cont Tamsulosin 0.4mg bid, Finasteride 5mg qd, and Cialis 10mg qod. Pt to call for refills. 2. Nocturia (R35.1: Nocturia) Ongoing, 2-3x/night. 3. Prostate cancer screening (Z12.5: Encounter for screening for malignant neoplasm of prostate) PSA 02/21/22 - 0.26 07/06/23 - 0.2 (0.4 Finasteride) Reviewed PSA results. Educated pt on importance of screening. Discussed levels are low so can extend monitoring of level q2-3yrs vs annually. -F/u in 1 yr w/ PSA, LATRELL Follow-up With When Contact Information LILIA CARDOZA, Carlos Villanueva, [facility] [address], [place] [address] [phone] Additional Instructions: 1 yr w/ PSA Patient Education Benign Prostatic Hyperplasia I, Irena Cisneros, personally scribed for Dr. Sorto on 07/11/2024 16:24:02. . Documentation recorded by the scribe, Irena Cisneros, accurately reflects the services(s) I performed and decisions made by me. Authenticated by Dr. Sorto on 07/11/2024 16:29:04. Problem List/Past Medical History Ongoing Bilateral groin pain BMI 32.0-32.9,adult BPH with urinary obstruction ED (erectile dysfunction) Esophageal reflux Hypertension Hypogonadism male Low energy Nocturia Prostate cancer screening Prostatitis Right groin pain Varicocele Ventral incisional hernia Historical No qualifying data Procedure/Surgical History Repair of ventral hernia (01/21/2021), Appendectomy. Medications Cialis 10 mg Tab, 10 mg= 1 tab(s), Oral, Daily, PRN finasteride 5 mg Tab, 5 mg= 1 [...] Smokeless Tobacco Use:. Household tobacco concerns: No., 07/11/2024 Family History Diabetes mellitus type 1: Father. Immunizations Vaccine Date Status Comments influenza virus vaccine, inactivated - Not Given Patient Refuses SARS-CoV-2 (COVID-19) mRNA BNT-162b2 vax 07/21/2020 Recorded SARS-CoV-2 (COVID-19) mRNA BNT-162b2 vax 06/30/2020 Recorded Lab Results Ambulatory Point of Care Results Bilirubin Urine Dipstick: Negative (07/11/24 15:40:00) Blood Urine Dipstick: Negative (07/11/24 15:40:00) Glucose Urine Dipstick: Negative (07/11/24 15:40:00) Ketones Urine Dipstick: Negative (07/11/24 15:40:00) Leukocytes Urine Dipstick: Negative (07/11/24 15:40:00) Nitrite Urine Dipstick: Negative (07/11/24 15:40:00) Protein Urine Dipstick: Negative (07/11/24 15:40:00) Specific [place] Urine Dipstick: 1.015 (07/11/24 15:40:00) Urine Appearance Urine Dipstick: Clear (07/11/24 15:40:00) Urine Color Urine Dipstick: Yellow (07/11/24 15:40:00) Urobilinogen Urine Dipstick: Normal 0.2-1 EU/dl (07/11/24 15:40:00) pH Urine Dipstick: 6 (07/11/24 15:40:00)NormalCleveland Clinic Hillcrest HospitalComment on above:Result Comment: Electronically Signed By: Carlos SORTO MD\.br\Date and Time Signed: 07/11/24 16:29 EDT\.br\Electronically Co-Signed By: Irena Cisneros.alayna\Date and Time Co-Signed: 07/11/24 16:26 EDTNo Panel Informationon 66-00-8292HRDU HealthcareInfluenza virus B Ag [Presence] in Upper respiratory specimen by Rapid immunoassayon 55-09-9456FVTSB Ag IA.rapid Ql (Nph)Influenza virus B Ag [Presence] in Upper respiratory specimen by Rapid immunoassay [facility] HospitalNo Panel Informationon 58-49-2585Qognqqxcl Type A (Rapid)NegativeMercy Health Urbana HospitalPOC SARS CoV-2 Antigen PositiveMercy Health Urbana HospitalNo Panel Informationon 19-48-8839TMSX HealthcareBasophils Auto (Bld) [#/Vol]on 08-43-7618Obfhvphpv (Bld) [#/Vol]0.1 10 3/uL0.0-0.1FWilson Memorial HospitalBasophils/100 WBC Auto (Bld)on 07-66-6733Sfnphnbsy/100 WBC (Bld)0.7 %0.2-2.0[facility] Cholesterol in LDL Calc [Mass/Vol]on 58-72-8619Kikdxtdrfvw in LDL [Mass/Vol]83.0 mg/dLMercy Health Urbana HospitalComment on above:<100 mg/dl BGREPVW264- 129 mg/dl NEAR OR ABOVE YHKPDSO025-867 mg/dl BORDERLINE BSMZ051-950 mg/dl H IGH>190 mg/dl VERY HIGHCholesterol in VLDL Calc [Mass/Vol]on 10-02-2023 Cholesterol in VLDL [Mass/Vol]37.8 mg/dLMercy Health Urbana Hospital Eosinophils/100 WBC Auto (Bld)on 73-59-9692Fynyhfovdnm/100 WBC (Bld)2.1 %0.9-7.0 [facility] HospitalErythrocyte distribution width Auto (RBC) [Ratio]on 49-16-6218Xrkddjhbsai distribution width (RBC) [Ratio]13.2 %11.0-15.0 [facility] HospitalEstimated glomerular filtration rate (GFR) non- Americanon 87-52-7942UNI/1.73 sq M.predicted among non-blacks MDRD (S/P/Bld) [Vol rate/Area]mL/min/{1.73_m2}>=60[facility] Globulin Calc (S) [Mass/Vol]on 43-86-3528Ankvjzzh (S) [Mass/Vol]3.5 g/dL [facility] HospitalHematocrit Auto (Bld) [Volume fraction]on 94-18-5175Yjqverynrj (Bld) [Volume fraction]43.0 %42.0-54.0[facility] HospitalHemoglobin [Mass/volume] in Bloodon 24-67-4576Hyszykrvxt (Bld) [Mass/Vol]14.3 g/dL14.0-18.0[facility] HospitalLaboratory - Chemistry and Chemistry - challengeon 63-74-5235Nommnrg [Mass/Vol]3.5 g/dL 3.4-5.0[facility] HospitalALP [Catalytic activity/Vol]103 U/L 46-116[facility] HospitalALT [Catalytic activity/Vol]24 U/L16-63 [facility] HospitalAST [Catalytic activity/Vol]16 U/L15-37 [facility] HospitalBilirubin [Mass/Vol]0.5 mg/dL0.2-1.0[facility] HospitalCalcium [Mass/Vol]8.3 mg/dLLow8.5-10.1FWilson Memorial HospitalChloride [Moles/Vol]105 mmol/E46-681JrganggteMercy Health Urbana HospitalCholesterol [Mass/Vol]178 mg/dL<=200[facility] Cholesterol in HDL [Mass/Vol]58 mg/vK90-30XtpbazzttMercy Health Urbana Hospital Comment on above:> or =60 mg/dl - LOW CARDIOVASCULAR RISK<40 mg/dl - HIGH CARDIOVASCULAR RISKCO2 [Moles/Vol]30.0 mmol/L21.0-32.0[facility] HospitalCreatinine [Mass/Vol]0.85 mg/dL0.70-1.30[facility] GFR/1.73 sq M.predicted MDRD (S/P/Bld) [Vol rate/Area]mL/min/{1.73_m2}>=60 [facility] HospitalGlucose [Mass/Vol]100 mg/zR17-139DjnenddxuMercy Health Urbana HospitalPotassium [Moles/Vol]4.0 mmol/L3.5-5.1FWilson Memorial HospitalProtein [Mass/Vol]7.0 g/dL6.4-8.2[facility] Sodium [Moles/Vol]141 mmol/D899-855QwphoilmoMercy Health Urbana HospitalTriglyceride [Mass/Vol]189 mg/dLHigh<=150[facility] HospitalUrea nitrogen [Mass/Vol]18.0 mg/dL7.0-18.0[facility] HospitalUrea nitrogen/Creatinine [Mass ratio]21.2 mg/mgMercy Health Urbana Hospital Laboratory - Hematology and Cell countson 43-23-2769Mehjilbw granulocytes/100 WBC (Bld)0.3 %0.0-0.5FWilson Memorial HospitalLeukocytes [#/volume] corrected for nucleated erythrocytes in Blood by Automated counon 81-20-7977QTI corrected for nucl RBC Auto (Bld) [#/Vol]7.7 10 3/uL4.0-11.0[facility] HospitalLymphocytes Auto (Bld) [#/Vol]on 05-92-5613Termaowlnyq (Bld) [#/Vol]2.1 10 3/uL1.2-3.8[facility] HospitalLymphocytes/100 WBC Auto (Bld)on 69-70-7224Ynwmgilhkmk/100 WBC (Bld)27.3 %20.5-60.0[facility] Medical CenterH Auto (RBC) [Entitic mass]on 61-30-2522KHZ (RBC) [Entitic mass]30.1 pg25.9-34.0[facility] HospitalMCHC Auto (RBC) [Mass/Vol]on 80-46-2194MDQU (RBC) [Mass/Vol]33.3 g/dL29.9-35.2FWilson Memorial HospitalMCV Auto (RBC) [Entitic vol]on 79-15-8926UZM (RBC) [Entitic vol] 90.5 fL80.0-94.0[facility] HospitalMonocytes Auto (Bld) [#/Vol]on 30-18-9949Njfxdbzks (Bld) [#/Vol]0.9 10 3/uLHigh0.3-0.8[facility] HospitalMonocytes/100 WBC Auto (Bld)on 20-05-4795Pmleferfg/100 WBC (Bld) 11.4 %1.7-12.0[facility] HospitalNeutrophils Auto (Bld) [#/Vol]on 89-30-9202Vgccxmkjoyl (Bld) [#/Vol]4.5 10 3/uL1.4-6.5FWilson Memorial HospitalNeutrophils/100 WBC Auto (Bld)on 94-44-3201Ycfcuwneoay/100 WBC (Bld)58.2 % 43.0-75.0[facility] HospitalNo Panel Informationon 10-02-2023 Eosinophils # (Auto)0.2 10 3/uL0.0-0.7FWilson Memorial HospitalImmature Granulocyte # (Auto)0.02 10 3/uL0.00-0.03[facility] Platelet mean volume Auto (Bld) [Entitic vol]on 79-33-8027Tottyagr mean volume (Bld) [Entitic vol]9.9 fL9.5-13.5FWilson Memorial HospitalPlatelets Auto (Bld) [#/Vol]on 98-53-3651Nhtreuttl (Bld) [#/Vol]394 10 3/iZ140-250ZjrmyhgevMercy Health Urbana HospitalRBC Auto (Bld) [#/Vol]on 17-34-0320XHX (Bld) [#/Vol]4.75 10 6/uL4.70-6.10Doctors Hospitalerum or plasma albumin/globulin mass ratioon 09-05-8558Xcxeajg/Globulin [Mass ratio]1.0 {ratio} Doctors Hospitalerum or plasma anion gap determinationon 96-45-9769Eeljy gap [Moles/Vol]10.0 mmol/LFMansfield Hospitalerum or plasma total cholesterol/high density lipoprotein (HDL) cholesterol mass rat on 66-71-6038Styaaqbuyoy.total/Cholesterol in HDL [Mass ratio]3.1 {ratio} [facility] HospitalComment on above:3.3 - 4.4 LOW RISK4.4 - 7.1 AVERAGE RISK7.1 - 11.0 MODERATE RISK>11.0 HIGH RISKNo Panel Informationon 51-38-1606Tcjxbbxqqzq method: cryotherapyNOMS [facility] HospitalQuick Strepon 05-09-2023S. pyogenes Org specific cx Ql (Throat)NegativeNoAvePoint Other Quick StrepRumble Other Alanine aminotransferase [Enzymatic activity/volume] in Serum or PlasmaOrdered By: Carlos Padilla on 84-31-0079ZRE [Catalytic activity/Vol]14 U/L7-52[facility] HospitalAlbumin [Mass/volume] in Serum or Plasma by Bromocresol green (BCG) dye binding methoOrdered By: Carlos Padilla on 19-21-4723Lwlobei BCG dye [Mass/Vol]4.4 g/dL3.5-5.7FWilson Memorial HospitalAlkaline phosphatase [Enzymatic activity/volume] in Serum or PlasmaOrdered By: Carlos Padilla on 33-68-7989NPH [Catalytic activity/Vol]98 U/L 34-104Mer[facility]ana HospitalAspartate aminotransferase [Enzymatic activity/volume] in Serum or PlasmaOrdered By: Carlos Padilla on 50-86-5643DDR [Catalytic activity/Vol]17 U/Y60-02KfyfteyjaMercy Health Urbana HospitalBasophils Auto (Bld) [#/Vol]Ordered By: Carlos Padilla on 35-24-6367Hduqndzmg (Bld) [#/Vol] 0.1 10*3/uL0.0-0.2FWilson Memorial HospitalBasophils/100 WBC Auto (Bld) Ordered By: Carlos Padilla on 03-31-6382Kccgszwro/100 WBC (Bld)0.7 %.[facility] HospitalBilirubin.total [Mass/volume] in Serum or PlasmaOrdered By: Carlos Padilla on 99-71-4550Udhygsbnr [Mass/Vol]0.3 mg/dL0.3-1.0[facility] HospitalCOVID CepheidOrdered By: Carlos Padilla on 03-27-2023 SARS-CoV-2 (COVID-19) Ab IA QlNegativeNegativeMercy Health Urbana Hospital Comment on above:This is a duplicate Cepheid Xpert Xpress CoV-2/Flu/RSV Plus RNA by RT-PCR result to be used for statistical tracking purpose only.SARS-CoV-2 (COVID-19) RNA MEHRAN+probe Ql (Unsp spec)[facility] HospitalCOVID-19 / Flu A/B / RSV PCRon 36-25-9113TBAN-CoV-2 (COVID-19) RNA MEHRAN+probe Ql (Unsp spec)COVID-19 Cepheid Result Negative for SARS-CoV-2 RNA by [...] or Cepheid Disclaimer revoked sooner. PERFORMED BY: [place] [address] PATHOLOGIST [employer] MEAS[employer] MACHINE NATY FORTE M.D.NormalMercy Health Urbana HospitalComment on above: Performed By: #### COVID19 FLU RSV, CEPHEID NEG #### [facility] [address] [place] [address] USACalcium [Mass/volume] in Serum or PlasmaOrdered By: Carlos Padilla on 85-89-7754Qilsgku [Mass/Vol]9.3 mg/dL8.6-10.3FWilson Memorial HospitalCarbon dioxide, total [Moles/volume] in Serum or PlasmaOrdered By: Carlos Padilla on 65-90-9053BW0 [Moles/Vol]28.7 mmol/L21.0-31.0Mer[facility]ana HospitalCepheid COVID PCR Negativeon 10-65-7894PAUN-CoV-2 (COVID-19) RNA MEHRAN+probe Ql (Unsp spec)NegativeNormalNegativeMercy Health Urbana Hospital Comment on above:Result Comment: This is a duplicate Cepheid Xpert Xpress CoV- 2/Flu/RSV Plus RNA by RT-PCR result to be used for statistical tracking purpose only. PERFORMED BY: [place] [address] PATHOLOGIST [employer]ACHINE NATY FORTE M.D.Performed By: #### COVID19 FLU RSV, CEPHEID NEG #### [address] [address] USAChloride [Moles/volume] in Serum or PlasmaOrdered By: Carlos Padilla on 67-51-1121Ibzbqxgj [Moles/Vol]105 mmol/O03-214IwfyzpitvMercy Health Urbana HospitalComplete Blood Count Auto Diffon 69-04-2107Piwwqxbhe (Bld) [#/Vol]0.1 10*3/uLNormal0.0-0.2FWilson Memorial HospitalComment on above:Result Comment: PERFORMED BY: [place] [address] PATHOLOGIST [employer]ACHINE NATY FORTE M.D.Performed By: #### CMP, CBC #### [place] [address] USABasophils/100 WBC (Bld)0.7 %Normal.[facility] HospitalComment on above:Performed By: #### CMP, CBC #### [place] [address] USAEosinophils (Bld) [#/Vol]0.2 10*3/uLNormal0.0-0.45 [facility] HospitalComment on above:Performed By: #### CMP, CBC #### [place] [address] USAEosinophils/100 WBC (Bld)2.0 %Normal.[facility] HospitalComment on above:Performed By: #### CMP, CBC #### [place] [address] USAErythrocyte distribution width (RBC) [Ratio]13.2 %Normal 12.0-14.8Mer[facility]ana HospitalComment on above:Performed By: #### CMP, CBC #### [place] [address] USAHematocrit (Bld) [Volume fraction]41.9 %Zntwvh47.8-50.0 [facility] HospitalComment on above:Performed By: #### CMP, CBC #### [place] [address] USAHemoglobin (Bld) [Mass/Vol]14.2 g/tPDuhrmz01.0-17.0 [facility] HospitalComment on above:Performed By: #### CMP, CBC #### [place] [address] USALymphocytes (Bld) [#/Vol]2.6 10*3/uLNormal1.00-4.8 [facility] HospitalComment on above:Performed By: #### CMP, CBC #### [address] [address] USALymphocytes/100 WBC (Bld)34.2 %Normal.[facility] HospitalComment on above:Performed By: #### CMP, CBC #### [facility] [address]H (RBC) [Entitic mass]30.5 euGbdbcq63.5-35.2FWilson Memorial HospitalComment on above:Performed By: #### CMP, CBC #### [facility] [address] [place] [address] USAV (RBC) [Entitic vol]89.8 rNGsrwdv55.5-101Mer[facility] HospitalComment on above:Performed By: #### CMP, CBC #### [facility] [address] [place] [address] USAMean Corpuscular HGB Conc34.0 g/aCExgkia05.5-35.6FWilson Memorial HospitalComment on above:Performed By: #### CMP, CBC #### [facility] [address] [place] [address] USAMonocytes (Bld) [#/Vol]0.6 10*3/uLNormal0.0-0.8[facility] HospitalCommunson healthcare gray[facility] on above:Performed By: #### CMP, CBC #### [facility] [address] [place] [address] USAMonocytes/100 WBC (Bld)17.61 %Normal0.00-20.00Mer[facility]rbana HospitalComment on above:Performed By: #### CMP, CBC #### [place] [address] USAMonocytes/100 WBC (Bld)8.4 %Normal.[facility] HospitalComment on above:Performed By: #### CMP, CBC #### [facility] [address] [place] [address] USANeutrophils (Bld) [#/Vol]4.1 10*3/uLNormal1.8-7.7FWilson Memorial HospitalComment on above:Performed By: #### CMP, CBC #### [facility] [address] [place] [address] USANeutrophils/100 WBC (Bld)54.7 %Normal.[facility] HospitalComment on above:Performed By: #### CMP, CBC #### [facility] [address] [place] [address] USANRBC%0.1 /100{WBC}Normal0-0.5FWilson Memorial HospitalComment on above:Performed By: #### CMP, CBC #### [facility] [address] [place] [address] USAPlatelet mean volume (Bld) [Entitic vol]8.3 fLNormal 6.6-10.1FWilson Memorial HospitalComment on above:Performed By: #### CMP, CBC #### [place] [address] USAPlatelets (Bld) [#/Vol]367 10*3/wUNmoqgy139-406XsvtrrdzbMercy Health Urbana HospitalComment on above:Performed By: #### CMP, CBC #### [place] [address] USARBC (Bld) [#/Vol]4.67 10*6/uLNormal3.90-5.60[facility] HospitalComment on above:Performed By: #### CMP, CBC #### [place] [address] USAWBC (Bld) [#/Vol]7.6 10*3/uLNormal4.1-10.5FWilson Memorial HospitalComment on above:Performed By: #### CMP, CBC #### [place] [address] USAComprehensive Metabolic Panelon 43-69-5289Gxppunb [Mass/Vol]4.4 g/dLNormal3.5-5.7FWilson Memorial HospitalComment on above:Performed By: #### CMP, CBC #### [place] [address] USAAlbumin/Globulin [Mass ratio]1.5 {ratio}NormalMercy Health Urbana HospitalComment on above:Performed By: #### CMP, CBC #### [facility] [address] [place] [address] USAALP [Catalytic activity/Vol]98 U/GZorfjv91-573MhodsjxvcMercy Health Urbana HospitalComment on above:Performed By: #### CMP, CBC #### [facility] [address] [place] [address] USAALT [Catalytic activity/Vol]14 U/LNormal7-52[facility] HospitalComment on above:Performed By: #### CMP, CBC #### [facility] [address] [place] [address] USAAnion gap [Moles/Vol]10.1 mmol/LNormal6.0-15.0[facility] HospitalComment on above:Performed By: #### CMP, CBC #### [facility] [address] [place] [address] USAAST [Catalytic activity/Vol]17 U/AGjrend97-07ZyhfbnygjMercy Health Urbana HospitalComment on above:Performed By: #### CMP, CBC #### [facility] [address] [place] [address] USABilirubin [Mass/Vol]0.3 mg/dLNormal0.3-1.0[facility] HospitalComment on above:Performed By: #### CMP, CBC #### [facility] [address] [place] [address] USACalcium [Mass/Vol]9.3 mg/dLNormal8.6-10.3FWilson Memorial HospitalComment on above:Performed By: #### CMP, CBC #### [facility] [address] [place] [address] USAChloride [Moles/Vol]105 mmol/SXpulxu33-630JflieozglMercy Health Urbana HospitalComment on above:Performed By: #### CMP, CBC #### [facility] [address] [place] [address] USACO2 [Moles/Vol]28.7 mmol/ZQfxclk24.0-31.0[facility] HospitalComment on above:Performed By: #### CMP, CBC #### [facility] [address] [place] [address] USACreatinine [Mass/Vol]0.94 mg/dLNormal0.70-1.30[facility] HospitalComment on above:Performed By: #### CMP, CBC #### [facility] [address] [place] [address] USACreatinine Clr Calc Wsuhgdth507.73NoKettering Health Main CampusComment on above:Result Comment: PERFORMED BY: [facility] [address] [place] [address] PATHOLOGIST [employer]ACHINE NATY FORTE M.D.Performed By: #### CMP, CBC #### [place] [address] USAGFR/1.73 sq M.predicted MDRD (S/P/Bld) [Vol rate/Area] mL/min/{1.73_m2}[facility]'s Medical CenterComment on above: Performed By: #### CMP, CBC #### [place] [address] USAGlobulin (S) [Mass/Vol]2.9 g/dLMercy Health St. Rita's Medical CenterComment on above:Performed By: #### CMP, CBC #### [place] [address] USAGlucose [Mass/Vol]94 mg/uNHvteqq21-005NgbpfybkvMercy Health Urbana HospitalComment on above:Result Comment: Random Glucose Reference Range is dependent on time and content of last meal. Glucose of more than 200 mg/dL in a nonstressed, ambulatory subject supports the diagnosis of Diabetes Mellitus. ADA recommended reference rangePerformed By: #### CMP, CBC #### [place] [address] USAPotassium [Moles/Vol]3.8 mmol/LNormal3.5-5.1FWilson Memorial HospitalComment on above:Performed By: #### CMP, CBC #### [place] [address] USAProtein [Mass/Vol]7.3 g/dLNormal6.4-8.9[facility] HospitalComment on above:Performed By: #### CMP, CBC #### [facility] [address] [place] [address] USASodium [Moles/Vol]140 mmol/XYvhudo520-220QfgiautpuMercy Health Urbana HospitalComment on above:Performed By: #### CMP, CBC #### [facility] [address] [place] [address] USAUrea nitrogen [Mass/Vol]16 mg/dLNormal7-25Mer[facility] HospitalComment on above:Performed By: #### CMP, CBC #### [facility] [address] [place] [address] USACreatinine [Mass/volume] in Serum or PlasmaOrdered By: Carlos Padilla on 48-08-7875Ynxuoffjnx [Mass/Vol]0.94 mg/dL0.70-1.30[facility]ana HospitalECG 12 lead ECGon 72-80-9169ZJW 12 lead ECGWILSON HEALTH Main [place] [address] [place] [address] Electrocardiograph Report Signed Patient: Josh Gil MR#: [id number] 662 : 1975 Acct:[id number] Age/Sex: 47 / M ADM Date: 03/27/23 Loc: ER Room: Type: [facility] ER Attending Dr: Ordering Provider: Carlos Padilla [...] Transcribed By: MUS Signed By Carlos Padilla, 2337NormalMercy Health Urbana HospitalEosinophils Auto (Bld) [#/Vol] Ordered By: Carlos Padilla on 12-83-2010Orwzrmukelw (Bld) [#/Vol]0.2 10*3/uL 0.0-0.45Mer[facility]ana HospitalEosinophils/100 WBC Auto (Bld)Ordered By: Carlos Padilla on 24-74-6804Qvtrzxffpgs/100 WBC (Bld)2.0 %.Mer[facility]ana HospitalErythrocyte distribution width Auto (RBC) [Ratio]Ordered By: Carlos Padilla on 80-90-5346Mflwmgyqtks distribution width (RBC) [Ratio]13.2 % 12.0-14.8Mer[facility]rb[facility] HospitalGlobulin Calc (S) [Mass/Vol]Ordered By: Carlos Padilla on 55-07-3927Mrybpyaa (S) [Mass/Vol]2.9 g/dLMercy Health Urbana HospitalGlucose [Mass/volume] in Serum or PlasmaOrdered By: Carlos Padilla on 48-90-6500Atfnfgq [Mass/Vol]94 mg/bH61-283ZanrsqistMercy Health Urbana Hospital Comment on above:ADA recommended reference rangeRandom Glucose Reference Range is dependent on time and content of last meal. Glucose of more than 200 mg/dL in a nonstressed, ambulatory subject supports the diagnosisof Diabetes Mellitus. Hematocrit Auto (Bld) [Volume fraction]Ordered By: Carlos Padilla on 03-27-2023 Hematocrit (Bld) [Volume fraction]41.9 %38.8-50.0[facility] HospitalHemoglobin [Mass/volume] in BloodOrdered By: Carlos Padilla on 03-27-2023 Hemoglobin (Bld) [Mass/Vol]14.2 g/dL13.0-17.0[facility] Leukocytes [#/volume] corrected for nucleated erythrocytes in Blood by Automated counOrdered By: Carlos Padilla on 84-48-0598ZDV corrected for nucl RBC Auto (Bld) [#/Vol]7.6 10*3/uL4.1-10.5FWilson Memorial HospitalLymphocytes Auto (Bld) [#/Vol]Ordered By: Carlos Padilla on 83-16-9323Bulftudfpmd (Bld) [#/Vol]2.6 10*3/uL1.00-4.8[facility] HospitalLymphocytes/100 WBC Auto (Bld) Ordered By: Carlos Padilla on 26-28-5259Eepigecwfnf/100 WBC (Bld)34.2 %.[facility] HospitalMCH Auto (RBC) [Entitic mass]Ordered By: Carlos Padilla on 84-88-0940APX (RBC) [Entitic mass]30.5 pg27.5-35.2FWilson Memorial HospitalMCHC Auto (RBC) [Mass/Vol]Ordered By: Carlos Padilla on 28-64-0370IPEN (RBC) [Mass/Vol]34.0 g/dL32.5-35.6FWilson Memorial HospitalMCV Auto (RBC) [Entitic vol]Ordered By: Carlos Padilla on 62-51-9822NIT (RBC) [Entitic vol]89.8 fL83.5-101[facility] HospitalMonocyte distribution width [Entitic volume] in Blood by AutomatedOrdered By: Carlos Padilla on 92-78-6776Fpgvdrzo distribution width Auto (Bld) [Entitic vol]17.61 %0.00-20.00[facility] HospitalMonocytes Auto (Bld) [#/Vol]Ordered By: Carlos Padilla on 03-27-2023 Monocytes (Bld) [#/Vol]0.6 10*3/uL0.0-0.8[facility] Monocytes/100 WBC Auto (Bld)Ordered By: Carlos Padilla on 52-16-2130Gkebwqjcq/100 WBC (Bld)8.4 %.[facility] HospitalNeutrophils Auto (Bld) [#/Vol] Ordered By: Carlos Padilla on 69-91-0940Fvsmzwdwrhg (Bld) [#/Vol]4.1 10*3/uL 1.8-7.7FWilson Memorial HospitalNeutrophils/100 WBC Auto (Bld)Ordered By: Carlos Padilla on 03-44-4781Evoxfogajxb/100 WBC (Bld)54.7 %.[facility] HospitalNo Panel InformationOrdered By: Carlos Padilla on 03-27-2023 Estimated GFR (CKD-EPI)> 60.0 mL/MinMercy Health Urbana HospitalPharmacy Creatinine Clearance (Tgzy969.73[facility] HospitalNucleated erythrocytes [Presence] in Blood by Automated countOrdered By: Carlos Padilla on 60-77-3033Ywknpqehl RBC Auto Ql (Bld)0.1 /100{WBC}0-0.5FWilson Memorial HospitalPlatelet mean volume Auto (Bld) [Entitic vol]Ordered By: Carlos Padilla on 24-85-6568Bdezvygl mean volume (Bld) [Entitic vol]8.3 fL6.6-10.1 [facility] HospitalPlatelets Auto (Bld) [#/Vol]Ordered By: Carlos Padilla on 36-87-3805Nmxfugcli (Bld) [#/Vol]367 10*3/kW380-975GsmkgzxhlMercy Health Urbana HospitalPotassium [Moles/volume] in Serum or PlasmaOrdered By: Carlos Padilla on 54-08-8679Rlsrdmgnz [Moles/Vol]3.8 mmol/L3.5-5.1FWilson Memorial HospitalProtein [Mass/volume] in Serum or PlasmaOrdered By: Carlos Padilla on 40-52-0240Peafryx [Mass/Vol]7.3 g/dL6.4-8.9[facility] RBC Auto (Bld) [#/Vol]Ordered By: Carlos Padilla on 34-50-0724MBU (Bld) [#/Vol] 4.67 10*6/uL3.90-5.60Doctors Hospitalerum or plasma albumin/globulin mass ratioOrdered By: Carlos Padilla on 03-27-2023 Albumin/Globulin [Mass ratio]1.5 {ratio}Doctors Hospitalerum or plasma anion gap determinationOrdered By: Carlos Padilla on 43-47-1088Vfqwv gap [Moles/Vol]10.1 mmol/L6.0-15.0Doctors Hospitalodium [Moles/volume] in Serum or PlasmaOrdered By: Carlos Padilla on 42-94-9949Ncdwrd [Moles/Vol]140 mmol/L873-767PtkdklfwyMercy Health Urbana HospitalUrea nitrogen [Mass/volume] in Serum or PlasmaOrdered By: Carlos Padilla on 18-17-4683Fgmv nitrogen [Mass/Vol]16 mg/dL7-25[facility] HospitalWBC Auto (Bld) [#/Vol]Ordered By: Carlos Padilla on 72-06-3580EWQ (Bld) [#/Vol]7.6 10*3/uL 4.1-10.5FWilson Memorial HospitalUS SCROTUMon 78-43-3010SE SCROTUM EXAMINATION: US SCROTUM HISTORY: Strain of [...] Electronically authenticated by: RALPH KHAN Date: 2022-02-04 13:36[facility] DaytonCB AUTO DIFFon 42-74-6330HGVF #0.0 103/ulNormal0.0-0.1The [facility] Medical CenterComment on above:Performed By: #### CBC #### [facility] [address] [address] [address] Maritza Marvinsophils/100 WBC (Bld)0.6 %Normal0.2-2.0[facility] Comment on above:Performed By: #### CBC #### [facility] [address] [place] [address] Dr. Maritza Ritter #0.2 103/ulNormal0.0-0.7The [facility] Medical CenterComment on above: Performed By: #### CBC #### [facility] [address] [place] [address] Dr. Maritza Davisosinophils/100 WBC (Bld)2.9 %Normal0.9-7.0The [facility] Comment on above:Performed By: #### CBC #### [facility] [address] [place] [address] Dr. Maritza Davisrythrocyte distribution width (RBC) [Ratio]13.2 %Aiuymx31.0-15.[address] [facility] Medical CenterComment on above:Performed By: #### CBC #### [facility] [address] [place] [address] Dr. Maritza LopezHematocrit (Bld) [Volume fraction]43.1 %Acldak24.0-54.0The [facility] Medical CenterComment on above:Performed By: #### CBC #### [facility] [address] [place] [address] Dr. Maritza LopezHemoglobin (Bld) [Mass/Vol]14.2 g/uWKqqfgn02.0-18.0The [facility] CenterComment on above:Performed By: #### CBC #### [facility] [address] [place] [address] Dr. Maritza Fink #0.01 10e3/ulNormal0.00-0.03The [facility] Medical CenterComment on above:Performed By: #### CBC #### [facility] [address] [place] [address] Dr. Maritza Fink %0.2 %Normal0.0-0.5The [facility] Hospitalment on above: Performed By: #### CBC #### [facility] [address] [place] [address] Dr. Maritza BrunnerMPH #2.0 103/ulNormal1.2-3.8The [facility] Medical CenterComment on above:Performed By: #### CBC #### [facility] [address] [place] [address] Dr. Maritza Brunnermphocytes/100 WBC (Bld)30.3 %Crcslc15.5-60.0The [facility] Hospitalment on above:Performed By: #### CBC #### [facility] [address] [place] [address] Dr. Maritza OrnelasUAL DIFF REQNONormalThe [facility]S Medical CenterComment on above: Performed By: #### CBC #### [facility] [address] [place] [address] Dr. Maritza Elise (RBC) [Entitic mass]30.0 mvBawrhe04.9-34.0The [facility] Medical CenterComment on above:Performed By: #### CBC #### [facility] [address] [place] [address] Dr. Maritza Elise (RBC) [Mass/Vol]32.9 g/cDAywlyp28.9-35.2The [facility] Medical CenterComment on above:Performed By: #### CBC #### [facility] [address] [place] [address] Dr. Maritza Elise (RBC) [Entitic vol]91.1 iMYmgiov29.0-94.0The [facility] Medical CenterComment on above:Performed By: #### CBC #### [facility] [address] [place] [address] Dr. Maritza Bates #0.8 103/ulNormal0.3-0.8The [facility] Medical CenterComment on above:Performed By: #### CBC #### [facility] [address] [place] [address] Dr. Maritza Arenasocytes/100 WBC (Bld)11.6 %Normal1.7-12.0The [facility] Comment on above:Performed By: #### CBC #### [facility] [address] [place] [address] Dr. Maritza Wan #3.6 103/ulNormal1.4-6.5The [facility] Medical CenterComment on above:Performed By: #### CBC #### [facility] [address] [place] [address] Dr. Maritza Georgeutrophils/100 WBC (Bld)54.4 %Nqvclw44.0-75.0The [facility] Medical CenterComment on above:Performed By: #### CBC #### [facility] [address] [place] [address] Dr. Maritza Dunlaplet mean volume (Bld) [Entitic vol]10.2 fLNormal9.5-13.5The [facility] Medical CenterComment on above:Performed By: #### CBC #### [facility] [address] [place] [address] Dr. Maritza LopezPLT378 103/gjKsfmns286-450Iaq [facility] Medical CenterComment on above: Performed By: #### CBC #### [facility] [address] [place] [address] Dr. Maritza LopezRBC4.73 106/ulNormal4.70-6.10The [facility] Medical CenterComment on above:Performed By: #### CBC #### [facility] [address] [place] [address] Dr. Maritza LopezWBC6.6 103/ulNormal4.0-11.0The [facility] Medical CenterComment on above: Performed By: #### CBC #### [facility] [address] [place] [address] Dr. Maritza LopezLIPID PROFILEon 38-91-2935HFYE-HDL RATIO NORMSEE [facility] HospitalComment on above:Result Comment: 3.3 - 4.4 LOW RISK 4.4 - 7.1 AVERAGE RISK 7.1 - 11.0 MODERATE RISK >11.0 HIGH RISKPerformed By: #### LIPID, CMP #### [facility] [address] [place] [address] Dr. Maritza LopezCholesterol [Mass/Vol]164 mg/dLNormal<=200The [facility] Comment on above:Performed By: #### LIPID, CMP #### [facility] [address] [place] [address] Dr. Maritza LopezCholesterol in HDL [Mass/Vol]55 mg/rJRnziih70-52CqpMercy Health Clermont HospitalComment on above:Performed By: #### LIPID, CMP #### [facility] [address] [place] [address] Dr. Maritza LopezCholesterol in LDL [Mass/Vol]90.8 mg/dLKettering Health DaytonComment on above:Performed By: #### LIPID, CMP #### [facility] [address] [place] [address] Dr. Maritza Riosesteramy.total/Cholesterol in HDL [Mass ratio]3.0 {ratio} NormalThe [facility]'S Medical CenterComment on above:Performed By: #### LIPID, CMP #### [facility] [address] [place] [address] Dr. Maritza Nichols NORMAL> or = 60 mg/dl - LOW CARDIOVASCULAR RISK <40 mg/dl - HIGH CARDIOVASCULAR RISKNoWyandot Memorial HospitalComment on above:Performed By: #### LIPID, CMP #### [facility] [address] [place] [address] Dr. Maritza Guardado CALC NORMALSEE BELOWKettering Health DaytonComment on above:Result Comment: <100 mg/dl OPTIMAL 100 - 129 mg/dl NEAR OR ABOVE OPTIMAL 130 - 159 mg/dl BORDERLINE HIGH 160 - 189 mg/dl HIGH >190 mg/dl VERY HIGH Performed By: #### LIPID, CMP #### [facility] [address] [place] [address] Dr. Maritza LopezTriglyceride [Mass/Vol]91 mg/dLNormal<=150[facility] Comment on above:Performed By: #### LIPID, CMP #### [facility] [address] [place] [address] Dr. Maritza LopezVLDL CALC18.2 mg/dLNoWyandot Memorial HospitalComment on above: Performed By: #### LIPID, CMP #### [facility] [address] [place] [address] Dr. Maritza LopezPROF 14(COMP METB)on 66-54-7000Wiotaxv [Mass/Vol]3.8 g/dLNormal 3.4-5.0The [facility] Medical CenterComment on above:Performed By: #### LIPID, CMP #### [facility] [address] [place] [address] Dr. Maritza LopezAlbumin/Globulin [Mass ratio]1.2 {ratio}NormalThe [facility]'S Medical CenterComment on above:Performed By: #### LIPID, CMP #### [facility] [address] [address] [address] Maritza Mason [Catalytic activity/Vol]100 U/LUokbnl31-463Itm [facility] Medical CenterComment on above:Performed By: #### LIPID, CMP #### [facility] [address] [place] [address] Dr. Maritza Hunter [Catalytic activity/Vol]26 U/OIiswao05-86Szp [facility] Medical CenterComment on above:Performed By: #### LIPID, CMP #### [facility] [address] [place] [address] Dr. Maritza Watson gap [Moles/Vol]11.5 mmol/LNormalThe [facility] Comment on above:Performed By: #### LIPID, CMP #### [facility] [address] [place] [address] Dr. Maritza LopzeAST [Catalytic activity/Vol]14 U/LCritically bdx09-15Fsa [facility] CenterComment on above:Performed By: #### LIPID, CMP #### [facility] [address] [place] [address] Dr. Maritza LopezBilirubin [Mass/Vol]0.4 mg/dLNormal0.2-1.3The [facility] Comment on above:Performed By: #### LIPID, CMP #### [facility] [address] [place] [address] Dr. Maritza LopezCalcium [Mass/Vol]8.4 mg/dLCritically low8.5-10.1The [facility] Medical CenterComment on above:Performed By: #### LIPID, CMP #### [facility] [address] [place] [address] Dr. Maritza LopezChloride [Moles/Vol]104 mmol/TVkmeub68-859Slz [facility] Comment on above:Performed By: #### LIPID, CMP #### [facility] [address] [address] [address] Maritza LopezCO2 [Moles/Vol]30.6 mmol/LCritically high22.0-30.0The [facility] Medical CenterComment on above:Performed By: #### LIPID, CMP #### [facility] [address] [place] [address] Dr. Maritza LopezCreatinine [Mass/Vol]1.07 mg/dLNormal0.66-1.25The [facility] Medical CenterComment on above:Performed By: #### LIPID, CMP #### [facility] [address] [place] [address] Dr. Maritza DavisGFR-AF TRISTANIAN>60Normal>=60The [facility] Medical CenterComment on above:Performed By: #### LIPID, CMP #### [facility] [address] [place] [address] Dr. Maritza DavisGFR-NON AF TRISTANIAN>60Normal>=60The [facility] Medical CenterComment on above:Performed By: #### LIPID, CMP #### [facility] [address] [place] [address] Dr. Maritza LopezGlobulin (S) [Mass/Vol]3.3 g/dLNormalThe [facility] CenterComment on above:Performed By: #### LIPID, CMP #### [facility] [address] [place] [address] Dr. Maritza LopezGlucose [Mass/Vol]110 mg/dLCritically znoi40-257Iff [facility] CenterComment on above:Performed By: #### LIPID, CMP #### [facility] [address] [place] [address] Dr. Maritza LopezPotassium [Moles/Vol]4.1 mmol/LNormal3.4-5.0The [facility] Comment on above:Performed By: #### LIPID, CMP #### [facility] [address] [address] [address] Maritza LopezProtein [Mass/Vol]7.1 g/dLNormal6.1-8.2The [facility] Comment on above:Performed By: #### LIPID, CMP #### [facility] [address] [address] [address] Maritza LopezSodium [Moles/Vol]142 mmol/PLnwjrf822-450Hxy [facility] Comment on above:Performed By: #### LIPID, CMP #### [facility] [address] [address] [address] Maritza LopezUrea nitrogen [Mass/Vol]17.0 mg/dLNormal7.0-18.0The [facility] CenterComment on above:Performed By: #### LIPID, CMP #### [facility] [address] [address] [address] Maritza Willis nitrogen/Creatinine [Mass ratio]15.9 mg/mgNormalThe [facility] Medical CenterComment on above:Performed By: #### LIPID, CMP #### [facility] [address] [address] [address] Maritza Lopez Vital Signs Date TimeVital SignValuePerforming HardhcinhYftoylgh67-05-7323 15:52-0400Body fiyheu523.34 cmBenjamin Ball DO Work Phone: [phone]07-02-2025 15:52-0400 Body mass index (BMI) [Ratio]33 kg/d9Wegbhdpl Ball DO Work Phone: [phone]07-02-2025 15:52-0400 Body cvaesx076.5 kgBenjamin Ball DO Work Phone: [phone]07-02-2025 15:52-0400 Diastolic blood dcizrjzn41 mm[Hg]Jaren Ball DO Work Phone: [phone]07-02-2025 15:52-0400 Heart rate81 /minBenjamin Ball DO Work Phone: [phone]07-02-2025 15:52-0400 Respiratory rate12 /minBenscoobymin Ball DO Work Phone: [facility]07-02-2025 15:52-0400 Systolic blood ukadxnvc752 mm[Hg]Jaren Ball DO Work Phone: [facility]04-21-2025 14:08-0400 Body .34 cmMercy Health [facility] Hospital04-21-2025 14:08-0400Body mass index (BMI) [Ratio]33.2 kg/m4FrsclcmnbMercy Health U[facility]ana Hospital04-21-2025 14:08-0400Body bnaluf178.01 [facility]04-21-2025 14:08-0400Diastolic blood jvuglqmt25 mm[Hg][facility] 07-25-2024 14:08-0400Heart rate66 /[facility] 07-25-2024 14:08-0400Respiratory rate12 /[facility] 07-25-2024 14:08-0400Systolic blood ssacmasy190 mm[Hg][facility]01-18-2025 10:52-0500Body ausymi047.34 cmMercy Health [facility] Hospital01-18-2025 10:52-0500Body mass index (BMI) [Ratio]34 kg/w6CyxmdgfwaMercy Health Urbana Hospital01-18-2025 10:52-0500Body .5 [degF][facility]01-18-2025 10:52-0500Body .73 kgMercy Health U[facility] Hospital01-18-2025 10:52-0500Diastolic blood tnefnfkl04 mm[Hg] [facility]01-18-2025 10:52-0500Heart rate85 /[facility]01-18-2025 10:52-0500Respiratory rate18 /[facility]01-18-2025 10:52-5981XcN8% (BldA) [Mass fraction]95 % [facility]01-18-2025 10:52-0500Systolic blood yyrgtiui153 mm[Hg][facility]01-14-2025 17:36-0500Body yqlkls116.34 cm [facility]01-14-2025 17:36-0500Body mass index (BMI) [Ratio]33.6 kg/j7TyrjqebtoMercy Health Urbana Hospital01-14-2025 17:36-0500Body agthkhsiqea23.3 [degF][facility]01-14-2025 17:36-0500Body rakcwo646.37 kgMercy Health U[facility] Hospital01-14-2025 17:36-0500Diastolic blood ojiqzljp55 mm[Hg][facility]01-14-2025 17:36-0500 Heart rate82 /[facility]01-14-2025 17:36-0500 Respiratory rate16 /[facility]01-14-2025 17:36-0500 SaO2% (BldA) [Mass fraction]98 %[facility]01-14-2025 17:36-0500Systolic blood vgnlxuaw693 mm[Hg][facility] 03-25-2024 16:02-0500Body sypkna160.34 cmMercy Health [facility] Hospital 03-25-2024 16:02-0500Body mass index (BMI) [Ratio]33.5 kg/f2DdkvgnjccMercy Health Urbana Hospital12-20-2024 16:02-0500Body ucnrlyjghue20.4 [degF][facility]12-20-2024 16:02-0500Body .86 kgMercy Health [facility] Hospital12-20-2024 16:02-0500Diastolic blood qzqwkgyt97 mm[Hg][facility]12-20-2024 16:02-0500Heart rate75 /[facility]12-20-2024 16:02-0500Respiratory rate18 /[facility]12-20-2024 16:02-9417SbR7% (BldA) [Mass fraction]97 %[facility]12-20-2024 16:02-0500Systolic blood mm[Hg] [facility]06-10-2024 15:44-0400Body agwdgr420.34 cm [facility]06-10-2024 15:44-0400Body mass index (BMI) [Ratio]33.1 kg/s5OrwxcnvjxMercy Health Urbana Hospital06-10-2024 15:44-0400Body suhrst920.72 kgMercy Health [facility] Hospital06-10-2024 15:44-0400Diastolic blood tvgokwip38 mm[Hg][facility]06-10-2024 15:44-0400 Heart rate63 /[facility]06-10-2024 15:44-0400 Respiratory rate12 /[facility]06-10-2024 15:44-0400 Systolic blood gibdqlsa454 mm[Hg][facility]04-01-2024 15:44-0400Blood Pressure LocationPatrick LILIA [facility]04-01-2024 15:44-0400Body nrluaksmqog30.42 [degF]Carlos SORTO [facility]04-01-2024 15:44-0400Diastolic blood ueympgcd80 mm[Hg]Carlosyao SORTO [facility]04-01-2024 15:44-0400Heart rate70 /minPatrick LILIA [facility]04-01-2024 15:44-0400Respiratory rate16 /minPatrick SORTO [facility]04-01-2024 15:44-0400Systolic blood mm[Hg]Carlos SORTO [facility]03-12-2024 15:56-0400Body hnfqay166.34 cmMercy Health [facility] Hospital03-12-2024 15:56-0400Body mass index (BMI) [Ratio]33 kg/p3IdskfyhgfMercy Health Urbana Hospital03-12-2024 15:56-0400Body yxqftp774.5 kgMercy Health [facility] Hospital03-12-2024 15:56-0400Diastolic blood khywapii86 mm[Hg] [facility]03-12-2024 15:56-0400Heart rate68 /minMercy Health Urbana Hospital03-12-2024 15:56-0400Systolic blood mm[Hg] [facility]02-16-2024 17:53-0500Body .61 cmDO Jaren Ball Work Phone: [facility]02-16-2024 17:53-0500 Body mass index (BMI) [Ratio]32.5 kg/m2DO Jaren Ball Work Phone: [phone]02-16-2024 17:53-0500 Body fwvoltexgwa48.9 [degF]DO Jaren Ball Work Phone: [facility]02-16-2024 17:53-0500 Body wyqyci348.5 kgDO Jaren Ball Work Phone: [facility]02-16-2024 17:53-0500 Diastolic blood hvyyhmum30 mm[Hg]DO Jaren Ball Work Phone: [facility]02-16-2024 17:53-0500 Heart rate75 /minDO Jaren Ball Work Phone: [facility]02-16-2024 17:53-0500 Respiratory rate18 /minDO Jaren Ball Work Phone: [facility]02-16-2024 17:53-0500 SaO2% (BldA) [Mass fraction]96 %DO Jaren Ball Work Phone: [facility]02-16-2024 17:53-0500 Systolic blood rofergew432 mm[Hg]DO Jaren Ball Work Phone: [facility]02-03-2024 13:45-0500 Body .61 cmPamela Imelda Other [facility]02-03-2024 13:45-0500 Body mass index (BMI) [Ratio]32.45 kg/y3Ubjlkoedd Segura Other [employer] Other 02-03-2024 13:45-0500Body bsavyvdotgj95.4 [degF]Nola Segura Other [employer] [employer] Other 02-03-2024 13:45-0500Body .05 kgPamichaela Imelda Other [employer] Other 02-03-2024 13:45-0500Body vlfojw037.04 kgDO Jaren Ball Work Phone: [facility]02-03-2024 13:45-0500 Respiratory rate16 /minNola Bourgeoismond Other [place] [employer] Other 02-03-2024 13:45-3120VeT7% (BldA) [Mass fraction]97 % [facility]ura [facility] Other 01-10-2024 15:00-0500Body gyeftj147.61 cmBenjamin Ball Other [facility]01-10-2024 15:00-0500 Body mass index (BMI) [Ratio]33.31 kg/t5Tudxmjbp Ball Other [place] [employer] Other 01-10-2024 15:00-0500Body jeiigq327.86 kgBenjamin Ball Other [facility]01-10-2024 15:00-0500 Diastolic blood pkgruonz33 mm[Hg]Jaren Ball Other [facility]01-10-2024 15:00-0500 Respiratory rate12 /minBenjamin Ball Other [facility] Other 01-10-2024 15:00-0500Systolic blood yywnwuwi819 mm[Hg] Jaren Ball Other [facility]12-22-2023 18:42-0500 Diastolic blood uazlurpc75 mm[Hg]DO Jaren Ball Work Phone: [facility]12-22-2023 18:42-0500 Heart rate60 /minDO Jaren Price Work Phone: [facility]12-22-2023 18:42-0500 Respiratory rate17 /minDO Jaren Price Work Phone: [facility]12-22-2023 18:42-0500 SaO2% (BldA) [Mass fraction]98 %DO Jaren Ball Work Phone: [facility]12-22-2023 18:42-0500 Systolic blood ghtxovov706 mm[Hg]DO Jaren Ball Work Phone: [facility]12-22-2023 14:28-0500 Body tiwqmf022.88 cmDO Jaren Price Work Phone: [facility]12-22-2023 14:28-0500 Body xliilncsrlc99 [degF]DO Jaren Ball Work Phone: [facility]12-22-2023 14:28-0500 Body iwjdlp360.7 kgDO Jaren Ball Work Phone: [facility]10-16-2023 15:55-0400 Blood Pressure LocationPatrick SORTO [facility]10-16-2023 15:55-0400Diastolic blood zkvxehyk40 mm[Hg]Carlos SORTO [facility]10-16-2023 15:55-0400Heart rate80 /minPatrick SORTO [facility]10-16-2023 15:55-0400Respiratory rate16 /minPatricgenaro SORTO [facility]10-16-2023 15:55-0400Systolic blood lsyjyyoz212 mm[Hg]Carlos SORTO [facility]06-05-2023 15:00-0400Body zkuoew210.61 cmBenjamin Ball Other [employer] Other 06-05-2023 15:00-0400Body mass index (BMI) [Ratio] 32.37 kg/d1Aipmkrdd Ball Other [employer] Other 06-05-2023 15:00-0400Body ctokbe913.78 kgBenjamin Ball Other [employer] Other 06-05-2023 15:00-0400Diastolic blood nqordaza88 mm[Hg] Jaren Ball Other [employer] Other 06-05-2023 15:00-0400Respiratory rate12 /minBenjamin Ball Other [employer] Other 06-05-2023 15:00-0400Systolic blood ijpjdark550 mm[Hg] Jaren Ball Other [employer] Other 874765-24-9813 15:05-0500Blood Pressure LocationMichaelisa NILL [facility] Eeskfceh22-34-9424 15:05-0500Diastolic blood ryxfxjbu68 mm[Hg]Sadi TORREZ General Surgery Lydirmml77-98-5009 15:05-0500Heart rate 82 /minMichael NILL General Surgery Pftbaiyu44-38-8238 15:05-0500 Respiratory rate16 /minMichael NILL [facility] Eaqsjvdc11-61-1949 15:05-0500Systolic blood bzwrwtel800 mm[Hg]Sadi NILL [facility] [place] Encounters Encounter DateEncounter TypeCare ProviderFacilityStart: 12-21-2024 End: 41-66-0088gdhjffbbuaYhciyvfo Ball DO Work Phone: [facility] Work Phone: Start: 12-21-2024 End: 58-24-0044Gmtwfkr encounter procedureBenjamin Albert DO-FPG [facility] Work Phone: Start: 10-05-2024 End: 01-09-7925qcbnhsflybLfhqtool Ball DO Work Phone: [facility] Work Phone: Start: 10-05-2024 End: 95-24-4382Dpejfqo encounter procedureBenjamin Ball DO-FP[facility] Work Phone: Start: 09-12-2024 End: 14-99-5749igbsprsqghQfcfgsbgnSelect [facility] Work Phone: Start: 09-12-2024 End: 58-79-8521Fwetrye encounter procedureFirsentara [facility] Work Phone: Start: 08-25-2024 End: 72-28-3479wmysnjvkuqJCZDEBDM E PERRYFacility:EU BellevueStart: 07-25-2024 End: 12-09-5538vwkjobqqglKtpppludfSelect [facility]ty [facility] Work Phone: Start: 07-25-2024 End: 89-14-1794Yuoqdgq encounter procedureFirsentara [facility] GroupAC[facility] Work Phone: Start: 07-11-2024 End: 57-25-2806hkltelreroXcwuvvo R WATERSFacility:EU BellevueStart: 05-05-2024 End: 62-59-0018eqmklvnkuzFLYCIDI A FELTERNot AvailableStart: 05-05-2024 End: 94-24-3720Dkpmnjl encounter procedureNatalie A Felter SENIOR QUALITY ASSURANCE SPECIALIST-LOOM DOFFER Work Phone: noms SWS DERMComment on above:Inflamed seborrheic keratosisStart: 05-05-2024 End: 11-52-8664Mcsywd flowsheetNatalie A Felter SENIOR QUALITY ASSURANCE SPECIALIST-LOOM DOFFER Work Phone: noms SWS DERMStart: 05-05-2024 End: 80-85-1887Xfcpxe flowsheetNatalie A Felter SENIOR QUALITY ASSURANCE SPECIALIST-LOOM DOFFER Work Phone: noms SWS DERMStart: 04-23-2024 End: 67-74-6559njyodgivhrQvoagxhefSelect [facility] Work Phone: Start: 04-23-2024 End: 12-45-4782Fsgkmkk encounter procedureY[facility]CL[facility] Work Phone: Start: 04-19-2024 End: 77-79-1317nkgbazfmrsIagemivgmSelect [facility]ty [facility] Work Phone: Start: 04-19-2024 End: 74-23-2148Fabatss encounter procedureY[facility]kin [facility] Phys[facility] GroupCL[facility] Work Phone: Start: 03-25-2024 End: 90-63-4659Pqvctgk encounter procedureYadkin [facility] GroupCL[facility] Work Phone: Start: 03-08-2024 End: 66-01-8127Fqmjgz outpatient visit 15 minutesNatalie A Felter SENIOR QUALITY ASSURANCE SPECIALIST-LOOM DOFFER Work Phone: noms SWS DERMComment on above:Inflamed seborrheic keratosis; Lentigines; Melanocytic nevus of trunkStart: 03-08-2024 End: 18-85-7055bkabfhrkqiXEHXHUI A FELTERNot AvailableStart: 03-08-2024 End: 48-32-6652Qanthz flowsheetNatalie A Felter SENIOR QUALITY ASSURANCE SPECIALIST-LOOM DOFFER Work Phone: [facility]S SWS DERMStart: 03-08-2024 End: 77-54-9238Peuflq flowsheetNatalie A Felter SENIOR QUALITY ASSURANCE SPECIALIST-LOOM DOFFER Work Phone: [facility]S SWS DERMStart: 10-27-2023 End: 62-23-9646myilcdbojxBugpqtcsxSelect [facility] Work Phone: Start: 10-27-2023 End: 40-21-9218Wmejyvg encounter procedureY[facility]kin [facility] Work Phone: Start: 82-19-3078Tup-patient / Non-visitFirsentara [facility] Work Phone: Start: 09-14-2023 End: 17-36-4723cvdwoxrwvbXkpyozzxqSelect [facility] Work Phone: Start: 09-14-2023 End: 35-58-7480Aetkvtoaa for general adult medical examination without abnormal findingsDoctors Hospitaltart: 09-14-2023 End: 22-95-8939Vjjjtdb encounter procedureYadkin [facility] Physician GroupAC[facility] Work Phone: Start: 07-06-2023 End: 44-91-2199Zvj Drop offCarlos SORTO [facility] Start: 07-06-2023 End: 44-45-0487Xquuqnl encounter procedureCarlos SORTO [facility] [place] start: 06-16-2023 End: 86-23-9512Wkaeyff encounter procedureYadkin [facility] Work Phone: Start: 05-22-2023 End: 10-44-9368dcastnipcxPY Jaren Price Work Phone: [facility] Work Phone: Start: 05-22-2023 End: 58-20-9798Cwsbjyn encounter procedureDO Jaren Price Work Phone: [facility] Work Phone: Start: 05-14-2023 End: 02-35-7116Hhouaoc encounter procedureNatalie A Felter SENIOR QUALITY ASSURANCE SPECIALIST-LOOM DOFFER Work Phone: n[facility] DERMComment on above:Common wart (Primary Dx); Other specified erythematous conditionsStart: 05-14-2023 End: 92-06-1443lizfaesozqSBWRKEY A FELTERNot AvailableStart: 86-41-8730Gankyk flowsheetNatalie A Felter SENIOR QUALITY ASSURANCE SPECIALIST-LOOM DOFFER Work Phone: [facility] DERMStart: 29-16-4959Bnvpzs flowsheetNatalie A Felter SENIOR QUALITY ASSURANCE SPECIALIST-LOOM DOFFER Work Phone: [facility] DERMStart: 05-09-2023 End: 14-26-7975uxcmjwbsvqFvxoxe Dymond Other NetProspexsain[facility] [employer] Other Start: 21-54-7630Khkbnh outpatient visit 15 minutes [facility] ClydeStart: 05-09-2023 End: 58-80-0297Liausez encounter procedureDO Jaren Price Work Phone: [facility]-Start: 04-15-2023 End: 19-74-7132jhlzvdsbkyYnnqqmom Ball Other [facility] [employer] Other Start: 84-75-2788Blofjt outpatient visit 15 minutes Jaren Miranda [facility] ClinicStart: 04-15-2023 End: 28-10-9845Hxjlvit encounter procedureDO Jaren Price Work Phone: [facility] Work Phone: Start: 04-13-2023 End: 97-46-0956xzdrvftdirUiukqcol Ball Other [employer] Other Start: 74-15-4475Phkaaqmjn encounterBekasey Price Medical ClinicStart: 03-27-2023 End: 84-51-3599Apgmtcamq department patient visitJaren PriceFacility:Doctors Hospitaltart: 03-27-2023 End: 62-50-2949Tsdgcurss department patient visitDO Jaren Price Work Phone: [facility] Work Phone: Start: 01-19-2023 End: 81-09-1183Saehbtn encounter procedurePalorena SORTO [facility] start: 11-19-2022 End: 54-64-9852wffxwvqqtyIixtcvoj Ball Other noDBVu [employer] Other Start: 60-65-0865Nrwfesb evaluation of patient and reportJaren Price Medical ClinicStart: 09-08-2022 End: 17-26-8833dtwwozrkuaYtohmcql Ball Other [employer] Other Start: 73-32-6549Lgzyhkevf for general adult medical examination without abnormal findingsBekasey Price Medical ClinicStart: 05-41-0537Zbksgtlp preventive med est patient 40-64yrsBekasey Price Medical ClinicStart: 07-08-2022 End: 36-29-9394yuwyyphzsiQuryy Keller Other noDBVu [employer] Other Start: 22-89-8502Zmfhavj encounter procedureAmber DannyFPG Urgent Care ClydeStart: 03-04-2022 End: 48-33-7897Itebbtu encounter procedureMichael R NILL General Surgery Nill/Said Sydnee Start: 02-21-2022 End: 14-22-2697agwzxtnrgjRR CARLOS WATERSFacility:D4Wbsfm: 02-04-2022 End: 45-40-7782ykpaazbewhSUVXPBFM EBERLYFacility:U3Ejhml: 67-93-2752Juggsucpz for general adult medical examination without abnormal findingsDR JAREN PRICE [facility]tart: 06-27-2021 End: 05-21-0808hxtnvxlqasHR JAREN PRICEFacility:C0Swfng: 06-27-2021 End: 26-03-3621Tprzdkawv for general adult medical examination without abnormal findingsDR JAREN PRICEFacility:V6Cbhlj: 83-23-7044Wirpa health examination Jaren Price Other [place] [employer] Other Procedures DateProcedureProcedure DetailPerforming ClinicianStart: 62-60-1114OYBIBMDSBZP SKIN LESIONNatalie A Felter SENIOR QUALITY ASSURANCE SPECIALIST-LOOM DOFFER Work Phone: Start: 82-89-7412FGCMEPAEPTE SKIN LESIONNatalie A Felter SENIOR QUALITY ASSURANCE SPECIALIST-LOOM DOFFER Work Phone: Start: 83-08-8419JDTIRYJJVRX OF LESIONNatalie A Felter SENIOR QUALITY ASSURANCE SPECIALIST-LOOM DOFFER Work Phone: Start: 18-98-3612OJRJ-CoV-2, Influenza & RSV (PCR)DO Jaren Price Work Phone: Start: 68-92-6636QFR screeningDR CARLOS Acosta on above:Performed By: #### PSAD #### [facility] [address] [place] [address] Dr. Maritza LopezStart: 22-33-0445Qxcfda of ventral herniaMichael NILL AppendectomyMichael NILL Depression screeningBenjamin Ball Other Plan of Treatment DateCare ActivityDetailAuthorStart: 52-28-7204fhyzqzuuqzUtwhylgwpgEgxbrrke:EU [place]vueStart: 03-09-2025 End: 99-11-9769Rvsexvw encounter alrfntxdf19/04/2025 3:55 PM EST Office Visit [facility] [address] [place] [address] Radha Terrell, SENIOR QUALITY ASSURANCE SPECIALIST-LOOM DOFFER [address] [place] [address] [facility] DERMStart: 03-08-2024 End: 65-58-4146Fpilhrl encounter rleinlqiu60/03/2024 2:05 PM EST Office Visit [facility] [address] [place] [phone] Radha Terrell, SENIOR QUALITY ASSURANCE SPECIALIST-LOOM DOFFER [address] [place] [address] ArrivedNOMS [facility] DERMComment on above: ArrivedStart: 23-59-8272Fzuhnitvf vaccinationInfluenza Vaccine (#1)[facility]OMS HealthcareStart: 06-04-2023 End: 95-58-0276Ghcgdle encounter frwqajrdn85/29/2024 4:05 PM EST Office Visit [facility] [address] [place] [phone] Radha Terrell, SENIOR QUALITY ASSURANCE SPECIALIST-LOOM DOFFER [address] [place] [address] [facility] DERMStart: 05-14-2023 End: 09-33-3285Sgliphk encounter whodozjht95/08/2024 4:05 PM EST Office Visit [facility] [address] [place] [address] Radha Terrell, SENIOR QUALITY ASSURANCE SPECIALIST-LOOM DOFFER [address] [place] [address] ArrivedNOMS SWS DERMComment on above: ArrivedStart: 85-21-4215Ixnlqwpkp vaccinationInfluenza Vaccine (#1)NOMS HealthcareStart: 47-56-9428Ylfnkbzev for malignant neoplasm of colonNOMS HealthcareComprehensive metabolic 2000 panel - Serum or PlasmaMercy Health U[facility] HospitalPatient EducationHigh Blood Pressure EDC[facility] Clinic [facility] Hospital Work Phone: Patient referralC[facility] Clinic [facility] Work Phone: [facility] Immunizations Immunization DateImmunizationNotesCare CmvuziacFasylknf61-26-0549WVPZ-PqZ-4 (COVID-19) mRNA BNT-162b2 vaxMichael NILL General Surgery Wtcdhdqc54-75-1913SMSJ-IcN-7 (COVID-19) mRNA BNT-162b2 vaxMichael NILL General Surgery BellevueNEGATED: Highlighted row has not occurred!86-97-9495vunmmhkmd virus vaccine, unspecified formulationMichael NILL General Surgery [place] Payers DatePayer CategoryPayerPolicy [id number] Health InsuranceMEDICAL MUTUAL [id number]rts Care HMO (unspecified)[id number]qkb Health JpftagziiX84212245042-65-3159Bgju-[id number] 2.840.1.761367.3.57[id number] 2.840.1.423314.3.57[id number] 2.840.1.249502.3.57[id number] 2.840.1.846200.3.57[id number] 2.840.1.925914.3.57[id number] 2.840.1.848353.3.57[id number] 2.840.1.747669.3.57[id number] 2.0.1.657115.3.57[id number] 2.840.1.408230.3.579.2.06943-13-9622Qltkbmm78700446300524-38-7152Gvokagj [id number] Health [id number] 2.840.1.741959.19Unknown [id number] 2.840.1.590429.3.579.2.531 Social History DateTypeDetailFacilityStart: 03-04-2022 End: 88-34-5169Pzjclpj smoking statusNever smoked tobacco (finding)General Surgery ArleyTobacco smoking statusNeverGeneral Surgery [facility] HospitalueStart: 04-13-2023 End: 82-22-4522Vpr Assigned At [facility]etart: 02-73-9592Jvheplg use and exposureSmokeless tobacco non-userNOMS Healthcare Start: 04-13-2023 End: 39-04-5705Xoqueiv of Social functionNOMS HealthcareStart: 50-57-6785Dnl Assigned At [facility] CenterNot on fileNOAK HealthcareStart: 99-07-4090Wgc Assigned At [facility] Centertart: 04-19-2024 End: 52-02-0954ElxHmzc (finding)[facility] Medical Equipment Procedure CodeEquipment CodeEquipment Original TextEquipment IdentifierDates HERNIA REPAIR, ROBOT ASSISTED Sadi TORREZ MD 01/21/21 Non Biological Abdomen {01}[id number]{17}[id number]{10}[id number]{20}02 FDAStart: 01-21-2021 Functional Status WgfxGrwriqsyyfSecsuiTpapszij55-07-6712Wmyizjfwyx StatusN/AExecutive Urology of [facility]10-16-2023Functional StatusN/AExec[facility]rology of [facility]11-29-2022Functional StatusN/A General Surgery [place] Clinical Notes 09-08-2022 to 10-05-2024 Note Date & ZdqaKbccFcdodksc85-79-3975 Evaluation note* Diagnosis Onset Date Resolution Status Admit Date Right rotator cuff tendonitis acuteJuly 2024 3:45pmShoulder pain, leftacuteJuly 2024 3:45pm [facility] Work Phone: 1(880) 119-984705-22-2025 NotePatient Education Infectious Disease Prostatitis Prostatitis is swelling or inflammation of the prostate gland, also called the prostate. This glandis about 1.5 inches wide and 1 inch high, and it is involved in making semen. The prostate is located below a man's bladder, in front of the rectum. There are four types of prostatitis: ??? Chronic prostatitis (CP), also called chronic pelvic pain syndrome (CPPS). This is the most common type of prostatitis. It is associated with increased muscle tone in the area between the hip bones (pelvic area), around the prostate. This type is also known as a pelvic floor disorder. ??? Chronic bacterial prostatitis. This type usually results from an acute bacterial infection in the prostate gland that keeps coming back or has not been treated properly. The symptoms are less severe than those caused by acute bacterial prostatitis, which lasts a shorter time. ??? Asymptomatic inflammatory prostatitis. This type does not have symptoms and does not need treatment. This is diagnosed when tests are done for other disorders of the urinary tract or reproductivetract. ??? Acute bacterial prostatitis. This type starts quickly and results from an acute bacterial infection in the prostate gland. It is usually associated with a bladder infection, high fever, and chills. This is the least common type of prostatitis. What are the causes? Bacterial prostatitis is caused by an infection from bacteria. Chronic nonbacterial prostatitis may be caused by: ??? Factors related to the nervous system. This system includes thebrain, spinal cord, and nerves. ??? An autoimmune response. This happens when the body's disease-fighting system attacks healthy tissue in the body by mistake. ??? Psychological factors. These have to do with how the mind works. The causes of the other types of prostatitis are usually not known. What are the signs or symptoms? Symptoms of this condition depend on the type of prostatitis you have. Acute bacterial prostatitis Symptoms may include: ??? Pain or burning during urination. ??? Frequent and sudden urges to urinate. ??? Trouble starting to urinate. ??? Fever. ??? Chills. ??? Pain in your muscles or joints, lower back, or lower abdomen. Other types of prostatitis Symptoms may include: ??? Sudden urges to urinate, or urinating often. ??? Trouble starting to urinate. ??? Weak urine stream. ??? Dribbling after urination. ??? Discharge coming from the penis. ??? Pain in the testicles, the penis, or the tip of the penis. ??? Pain in the area in front of the rectum and below the scrotum (perineum). ??? Pain when ejaculating. How is this diagnosed? This condition may be diagnosed based on: ??? A physical and medical exam. ??? A digital rectal exam. For this, the health care provider may use a finger to feel the prostate. ??? A urine test to check for bacteria. ??? A semen sample or blood tests. ??? Ultrasound. ??? Urodynamic tests to check how your body handles urine. ??? Cystoscopy to look inside your bladder or inside the part of your body that drains urine from the bladder (urethra). How is this treated? Treatment for this condition depends on the type of prostatitis. Treatment may involve: ??? Medicines to relieve pain or inflammation, or to help relax your muscles. ??? Physical therapy. ??? Heat therapy. ??? Biofeedback. These techniques help you control certain body functions. ??? Relaxation exercises. ??? Antibiotic medicine, if your condition is caused by bacteria. ??? Sitz baths. These warm water baths help to relax your pelvic floor muscles, which helps to relieve pressure on the prostate. Follow these instructions at home: Medicines ??? Take byzm-qbt-tnlkyuk and prescription medicines only as told by your health care provider. ??? If you were prescribed an antibiotic medicine, take it as told by your health care provider. Donot stop using the antibiotic even if you start to feel better. Managing pain and swelling ??? Take sitz baths as directed by your health care provider. For a sitz bath, sit in warm water that is deep enough to cover your hips and buttocks. ??? If directed, apply heat to the affected area as often as told by your health care provider. Usethe heat source that your health care provider recommends, such as a moist heat pack or a heating pad. ? Place a towel between your skin and the heat source. ? Leave the heat on for 20?30 minutes. ? Remove the heat if your skin turns bright red. This is especially important if you are unable to feel pain, heat, or cold. You may have a greater risk of getting burned. General instructions ??? Do exercises as told by your health care provider, if you were prescribed physical therapy, biofeedback, or relaxation exercises. ??? Keep all follow-up visits as told by your health care provider. This is important. (more content not included)...[facility]04-21-2025 Evaluation note* Diagnosis Onset Date Resolution Status Admit Date Chronic meniscal tear of knee acuteApril 2024 1:54pmLeft knee painacuteApril 2024 1:54pmSuspected sleep apneaacuteApril 2024 1:54pmVaricose veins of left calfacuteApril 2024 1:54pm [facility] Work Phone: 1(736) 351-724704-07-2025 NotePatient Education Urology Benign Prostatic Hyperplasia Benign prostatic [...] or symptoms? Symptoms of this condition include: ??? Getting up often during the night to urinate. ??? Needing to urinate frequently during the day. ??? Difficulty starting urine flow. ??? Decrease in size and strength of your urine stream. ??? Leaking (dribbling) after urinating. ??? Inability to pass urine. This needs immediate treatment. ??? Inability to completely empty your bladder. ??? Pain when you pass urine. This is more common if there is also an infection. ??? Urinary tract infection (UTI). How is this diagnosed? This condition is diagnosed based on your medical history, a physical exam, and your symptoms. Tests will also be done, such as: ??? A post-void bladder scan. This measures any amount of urine that may remain in your bladder after you finish urinating. ??? A digital rectal exam. In a rectal exam, your health care provider checks your prostate by putting a lubricated, gloved finger into your rectum to feel the back of your prostate gland. This exam detects the size of your gland and any abnormal lumps or growths. ??? An exam of your urine (urinalysis). ??? A prostate specific antigen (PSA) screening. This is a blood test used to screen for prostate cancer. ??? An ultrasound. This test uses sound waves [...] severity of your condition. Treatment may include: ??? Observation and yearly exams. This may be the only treatment needed if your condition and symptoms are mild. ??? Medicines to relieve your symptoms, including: ? Medicines to shrink the prostate. ? Medicines to relax the muscle of the prostate. ??? Surgery in severe cases. Surgery may include: ? Prostatectomy. In this procedure, the prostate tissue is removed completely through an open incision or with a laparoscope or robotics. ? Transurethral resection of the prostate (TURP). In this procedure, a tool is inserted through theopening at the tip of the penis (urethra). [...] procedure uses radio frequencies to destroy and removea small amount of prostate tissue. ? Interstitial laser coagulation (ILC). This procedure uses a laser to destroy and remove a small amount of prostate tissue. ? Transurethral electrovaporization (TUVP). This procedure uses electrodes to destroy and remove a small amount of prostate tissue. ? Prostatic urethral lift. This procedure inserts an implant to push the lobes of the prostate awayfrom the urethra. Follow these instructions at home: ??? Take kaxp-rvs-zoxulww and prescription medicines only as told by your health care provider. ??? Monitor your symptoms for any changes. Contact your health care provider with any changes. ??? Avoid drinking large amounts of liquid before going to bed or out in public. ??? Avoid or reduce how much caffeine or alcohol you drink. ??? Give yourself time when you urinate. ??? Keep all follow-up visits. This is important. Contact a health care provider if: ??? You have unexplained back pain. ??? Your symptoms do not get (more content not included)...[facility]01-30-2025 History of Present illness Narrative* Radha Terrell, SENIOR QUALITY ASSURANCE SPECIALIST- LOOM DOFFER - 05/05/2024 3:30 PM EST Lesions: Location: Left ear Duration: 1 month Quality: itchy, denies pain, denies bleeding Associated symptoms: non-healing, rough Treatments: none Established patient All pertinent medical history, medications, and allergies were reviewed. General Exam: alert, oriented to person, place, and time, normal affect, well appearing Unaccompanied A focused exam completed based on patient reported problems, see below: 1. Inflamed seborrheic keratosis Left Ear Inflamed seborrheic keratoses: pink and brown stuck [...] limited to risks of scarring, darker or tour conductor pigmentary changes, recurrence, incomplete removal and infection. [...] or tenderness Cryotherapy, skin lesion - Left Ear Next Visit: as scheduled documented in this [facility]12-20-2024 Evaluation note* Diagnosis Onset Date Resolution Status Admit Date COVID noneactiveDeceer 2023 3:51pm [facility] Work Phone: 1(377) 810-989712-20-2024 Evaluation note* Diagnosis Onset Date Resolution Status Admit Date [facility] 20[facility] 3:51pmViral URI with coughacuteJanuary 2024 5:34pm [facility] Work Phone: 1(377) 352-314312-03-2024 History of Present illness Narrative* ERIN Paiz - 03/08/2024 2:05 PM EST Lesions: Location: [...] limited to risks of scarring, darker or tour conductor pigmentary changes, recurrence, incomplete removal and infection. [...] 1 year, skin check [facility] [id number] Hospital Discharge instructions Patient Education 07/06/2023 16:32:19 [...] urethra. Follow these instructions at home: Take hxeq-wll-qzzjjkz and prescription medicines only as told by [...] provider. Document Revised: 10/09/2021 Document Reviewed: 10/09/2021 [employer] Patient Education 2022 [employer]. Follow Up Care 01/19/2023 16:46:04 With:LILIA CARDOZA, Carlos Villanueva, URL Address: [facility] [address], [place] [address] [phone] When: Unknown Comments:1 yr (no labs) [facility] 02-08-2024 History of Present illness Narrative* Radha Terrell, SENIOR QUALITY ASSURANCE SPECIALIST-LOOM DOFFER - 05/14/2023 4:05 PM EST Follow up [...] until wart resolves. Fluowart order faxed to [facility] Patient elected for cryotherapy today, see procedure note. Diagnosis: Verruca Indication: Inflamed Consent: Verbal consent was obtained and risks were discussed, including, but not limited to risks of scarring, darker or tour conductor pigmentary changes, recurrence, incomplete removal and infection. [...] Next Visit: 4 weeks documented in this encounterSaint [facility] [id number] Evaluation note* Encounter Date Diagnosis Assessment Notes Treatment Notes Treatment Clinical Notes May, Bilateral impacted cerumen (ICD- 10 - H61.23) Cerumen impaction home care material was printed May,Viral URI (ICD-10 - J06.9)Viral upper respiratory infection: adult home care material was printed Plenty fluids, get plenty of rest. Take Tylenol or Motrin for aches pains or fevers. [facility] no [facility] in 2 to 3 days May,Sore throat (ICD-10 - J02.9) [facility] Other 01-10-2024 Evaluation note* Encounter Date Diagnosis Assessment Notes Treatment Notes Treatment Clinical Notes Apr, Primary hypertension (ICD-10 - I 10) This patient is instructed to consume a healthy, low-fat, low-salt diet. They are also encouraged to continue exercise to achieve/maintain a normal BMI. Patient is instructed on home BP measurements: - rest for 5 minutes w/o talking.- positioned w/ feet on floor and arm supported.- average best 2/3 readings w/ goal < 135/85. 10 Apr, 2024GAD (generalized anxiety disorder) (ICD-10 - F41.1)Healthy diet, exercise and relaxation. Discussed treatment options and recommended initiating SSRI therapy. He understands that it may take up to 4 weeks to reach maximum benefit. Apr,Insomnia due to other mental disorder (ICD-10 - F51.05)Discussed consistent nighttime routine. Avoid TV, eating, Phone, Exercise prior to bedtime. Use Zolpidem after an hour if still awake Apr,Mental disorder, not otherwise specified (ICD-10 - F99) [facility] Other 10-16-2023 Hospital Discharge instructions Patient Education [...] urethra. Follow these instructions at home: Take uiis-swo-oynhnva and prescription medicines only as told by [...] provider. Document Revised: 10/09/2021 Document Reviewed: 10/09/2021 [employer] Patient Education 2022 [employer]. Follow Up Care 01/13/2022 17:13:17 With:LILIA CARDOZA, aCrlos Villanueva, URL Address: [facility] [address] , [place] [address]- When:Within 6 Month(s) [facility] 08-16-2023 Evaluation note* Encounter Date Diagnosis Assessment Notes Treatment Notes Treatment Clinical Notes Nov, Seasonal allergic rhinitis, unsp ecified trigger (ICD-10 - J30.2) [facility] Other 06-05-2023 Evaluation note* Encounter Date Diagnosis Assessment Notes Treatment Notes Treatment Clinical Notes Sep, Wellness examination (ICD-10 - Z 00.00) Healthy diet and exercise. Reviewed age-appropriate preventive testing recommended. Sep,astroesophageal reflux disease with esophagitis without hemorrhage (ICD-10 - K21.00)Diet instructions: Smaller portions, avoid eating and laying flat, avoid eating or drinking prior to bedtime. Weight loss. Recommended weaning off PPI Sep,Nocturia (ICD-10 - R35.1) Sep,enign prostatic hyperplasia with lower urinary tract symptoms (ICD- 10 - N40.1)Yearly evaluation w/ w/ PSA Sep,Other obesity due to excess calories (ICD-10 - E66.09)This patient has been instructed on a low-fat, high-fiber diet. They are instructed to reduce calories, portion sizes and snacks. It is recommended that they exercise for 30 minutes, 3-5 times weekly. Sep,ody mass index [BMI] 32.0-32.9, adult (ICD-10 - Z68.32) [facility] [employer] Other Evaluation + Plan note Future Appointments Appointment Date:01/19/2023 03:15:00 PM Scheduled Provider:Carlos SORTO MD Location:[facility] Appointment Type:URO Office Visit General Surgery [facility] Evaluation + Plan note Future Appointments Appointment Date:07/13/2023 08:45:00 AM Scheduled Provider:Carlos SORTO MD Location:[facility] Appointment Type:URO Office Visit [facility] evaluation + Plan note Future Appointments Appointment Date:07/11/2024 03:15:00 PM Scheduled Provider:Carlos SORTO MD Location:[facility] Appointment Type:URO Office Visit [facility] evaluation + Plan note Future Appointments Appointment Date:07/11/2024 03:15:00 PM Scheduled Provider:Carlos SORTO MD Location:[facility] Appointment Type:URO Office Visit Diagnostic Tests Pending * PSA Screen, [facility] noteNo InformationNortWar[facility] [employer] Other Evaluation note* Diagnosis Common wart- Primary Other specified viral warts Other specified erythematous conditions documented in this encounter [facility] HealthcareEvaluation noteNo assessment information availableC[facility] Work Phone: Evaluation note* Diagnosis Onset Date Resolution Status LALITO (generalized anxiety disorder) acuteObesityacutePrimary hypertensionacuteBenign prostatic hyperplasia with lower urinary tract symptomsacuteGAD (generalized anxiety disorder)acuteGastro- esophageal reflux disease with esophagitis, without bleedingacutePrimary hypertensionacuteWellness examinationnon[facility] Work Phone: Evaluation note* Diagnosis Onset Date Resolution Status Benign prostatic hyperplasia with lower urinary tract symptoms acuteGAD (generalized anxiety disorder)acuteGastro-esophageal reflux disease with esophagitis, without bleedingacuteKnee painacutePrimary hypertensionacute Wellness examinationnonTri[facility] Work Phone: Evaluation note* Diagnosis Inflamed seborrheic keratosis Lentigines Melanocytic nevus of trunk Benign neoplasm of skin of trunk, except scrotum documented in this encounter [facility] HealthcareEvaluation note* Diagnosis Inflamed seborrheic keratosis documented in this encounter [facility] HealthcareHistory general Narrative - Reported* Type Description Date Medical History Acid reflux Medical Historyenlarged prostateSurgical Historyappendectomy [facility] Other History general Narrative - Reported* Type Description Date Medical History Acid reflux Medical Historyenlarged prostateSurgical HistoryappendectomySurgical History [id number] HistoryHERNIORRHAPHY,INCISIONAL OR [id number] HistorySEE SURGICAL HX gopogo [facility] [employer] Other Hospital course Narrative No data available for this section [facility] Hospital Discharge instructions No data available for this section General Surgery [facility] Progress note No data available for this section General Surgery [facility] Reason for referral (narrative)No reason for referral information availableC[facility] Work Phone: Summary Purpose Family History Relationship Condition Age [...] Congestion sinus congestion Chief Complaint check up WellnessReason for VisitGAD (generalized anxiety disorder) Obesity Primary hypertension Benign prostatic hyperplasia with lower urinary tract symptoms LALITO (generalized anxiety disorder) Gastro-esophageal reflux disease with esophagitis, without bleeding Primary hypertension Wellness examination Chief Complaint Wellness allergy shotReason for VisitBenign prostatic hyperplasia with lower urinary tract symptoms LALITO (generalized anxiety disorder) Gastro-esophageal reflux disease with esophagitis, without bleeding Knee pain Primary hypertension Wellness examination Chief Complaint Admit Date Sinus congestion, cough, headache Decemb er 2023 3:51pm sore throat, loss of voice, fever Apruar 2024 5:34pm Reason for Visit Admit Date COVID March 25, 2024 3:51pm Chief Complaint Admit Date Sinus congestion, cough, headache Decemb er 2023 3:51pm sore throat, loss of voice, fever Januar y 2024 5:34pm cough, congestion(in car) April 23, 2024 10:31am Reason for Visit Admit Date COVID March 25, 2024 3:51pm Viral URI with cough April 19, 2024 5:34pm Chief Complaint Admit Date left knee swelling July 25, 2024 1:5 4pm Chief Complaint Admit Date left knee swelling July 25, 2024 1:5 4pm allergy shot September 12, 2024 2:18p m Reason for Visit Admit Date Chronic meniscal tear of knee July 1:54pm Left knee pain July 25, 2024 1:5 4pm Suspected sleep apnea July 25, 2024 1 :54pm Varicose veins of left calf July 25, 2024 1:54pm Chief Complaint Admit Date left knee swelling July 25, 2024 1:5 4pm allergy shot September 12, 2024 2:18p m left shoulder pain October 05, 2024 3:45p m Chief Complaint Admit Date left shoulder pain October 05, 2024 3:45p m Allergy Shot December 21, 2024 11:39am Reason for Visit Admit Date Right rotator cuff tendonitis October 05, 2024 3:45pm Shoulder pain, left October 05, 2024 3:45p m Additional Source Comments (unrecognized sect ion and content) No Status Records FoundNo Status Records FoundNo Status Records FoundNo Status Records Found INFORMATION SOURCE (unrecogn ized section and content) DATE CREATED AUTHOR 02/24/2022 [facility] DATE CREATED AUTHOR AUTHOR'S ORGANIZ ATION 04/10/2023 [facility] DATE CREATED AUTHOR AUTHOR'S ORGANIZ ATION 05/07/2024 [facility] DATE CREATED AUTHOR AUTHOR'S ORGANIZ ATION 08/31/2024 [facility] Patient Care team informatio n (unrecognized section and content) Team Status: Active Member Role Status Dates Jaren Price DO Primary Care Provider Active Team Status: Inactive Member Role Status Dates Jaren Price DO Primary Care Provider Active Start: March 27, 2023 End: March 27Catherine Osei ProviderActiveStart: March 27, 2023 End: March 27, 2023 [...] Active Start: May 22, 2023 End: May 22Tony Mcdonough ProviderActiveStart: May 22, 2023 End: May 22, 2023 Team Status: Inactive Member Role Status Anders Price DO Primary Care Provide r, Attending Provider Active Start: June 16, 2023 End: June 16, 2023 Team Status: Inactive Member Role Status Anders Price DO Primary Care Provide r, Attending Provider Active Start: September 14, 2023 End: September 14, 2023 Team Status: Active Member Role Status Anders Price DO Primary Care Provide r, Attending Provider Active Start: October 02, 2023 Team Status: Inactive Member Role Status Anders Price DO Primary Care Provide r, Attending Provider Active Start: October 27, 2023 End: October 27, 2023 Team Status: Inactive Member Role Status Anders Price DO Primary Care Provider Active Start: March 25, 2024 End: March 25Joanna Easton ProviderActiveStart: March 25, 2024 End: March 25, 2024 Team Status: Inactive Member Role Status Anders Price DO Primary Care Provider Active Start: April 19, 2024 End: April 19, 2024Joanna Horn ProviderActiveStart: April 19, 2024 End: April 19, 2024 Team Status: Inactive Member Role Status Anders Price DO Primary Care Provider Active Start: April 23, 2024 End: April 23, 2024Joanna Horn ProviderActiveStart: April 23, 2024 End: April 23, 2024 Team Status: Inactive Member Role Status Anders Price DO Primary Care Provide r, Attending Provider Active Start: July 25, 2024 End: July 25, 2024 Team Status: Inactive Member Role Status Anders Price DO Primary Care Provide r, Attending Provider Active Start: September 12, 2024 End: September 12, 2024 Team Status: Inactive Member Role Status Anders Price DO Primary Care Provider Active Start: July 25, 2024 End: July 25Marizol Liriano ProviderActiveStart: July 25, 2024 End: July 25, 2024 Team Status: Inactive Member Role Status Anders Price DO Primary Care Provider Active Start: September 12, 2024 End: September 12nubia Price DOAttorin ProviderActiveStart: September 12, 2024 End: September 12, 2024 Team Status: Inactive Member Role Status Dates Jaren Price DO Primary Care Provider Active Start: October 05, 2024 End: October 05Marizol Liriano ProviderActiveStart: October 05, 2024 End: October 05, 2024 Team Status: Inactive Member Role Status Dates Jaren Price DO Primary Care Provider Active Start: December 21, 2024 End: December 21Marizol Liriano ProviderActiveStart: December 21, 2024 End: December 21, 2024 REASON FOR VISIT (unrecogniz ed section and content) ReasonCommentsFollow-upReasonCommentsSuspicious Skin Lesion Goals (unrecognized section and content) Goals may [...] BE BASED ON THE PRIMARY CLINICAL RECORDS. [facility] [employer] [facility]. provides no warranty or guarantee of the accuracy or completeness of information in this document.
== END 2025-02-23 15:52 | disposition home or self-care (01) ==
LOC: MRI 15:51
PROVIDERS: PCP Internal Medicine; Visit Provider Student in an Organized Health Care Education/Training Program
DX: M75.102 Unspecified rotator cuff tear or rupture of left shoulder, not specified as traumatic (principal); M75.112 Incomplete rotator cuff tear or rupture of left shoulder, not specified as traumatic
CPT/HCPCS: 73221